=== PATIENT | female | born 1970 | race African-American/Black ===

== ENCOUNTER → 2018-04-13 15:53 | Outpatient (CLI) | payer OTHER, MEDICAID, SELFPAY ==
--- NOTE | 2018-04-13 15:57 | DI.RAD.S_ITS ---
PROCEDURE: XR KNEE LT 3V INDICATIONS: l knee pain TECHNIQUE: 3 views of the knee were acquired. COMPARISON: None. FINDINGS: Bones: No fractures or dislocations. No suspicious bony lesions. Soft tissues: No joint effusion. No suspicious soft tissue calcifications. IMPRESSION: Normal knee Dictated by: Eliel Briceño M.D. on 04/13/2018 at 16:24 Approved by: Eliel Briceño M.D. on 04/13/2018 at 16:25
== END ==
PROVIDERS: Family Provider Physician Assistant; PCP Physician Assistant; Visit Provider Physician Assistant
DX: M25.562 Pain in left knee (principal)
CPT/HCPCS: 73562

== ENCOUNTER 2018-06-23 13:36 | Inpatient (IN) | payer OTHER, MEDICAID, SELFPAY ==
[2018-06-23] VITALS (8 sets, daily range): BP systolic 110–172; BP diastolic 71–111; PULSE 17–96; RESP 12–28; TEMP 36.1–36.7; O2SAT 89–100; BMI 26.5
--- NOTE | 2018-06-23 13:51 | DI.RAD.S_ITS ---
PROCEDURE: XR CHEST 1V INDICATIONS: chest pain TECHNIQUE: One view of the chest was acquired. COMPARISON: None. FINDINGS: Surgical changes and devices: None. Lungs and pleura: No pleural effusions or pneumothorax. Patchy opacity noted in the left lung base compatible with atelectasis versus less likely early pneumonia. Mediastinum: Mediastinal contours appear normal. Heart size is normal. Bones and chest wall: No suspicious bony lesions. Overlying soft tissues appear unremarkable. IMPRESSION: Left basilar atelectasis versus less likely early pneumonia. Please correlate with clinical and laboratory data. Dictated by: Caterina Watson MD, PhD on 06/23/2018 at 13:21 Approved by: Caterina Watson MD, PhD on 06/23/2018 at 13:22
--- NOTE | 2018-06-23 13:51 | ED.CHESTPAIN ---
HPI - Chest Pain General Chief Complaint: Chest Pain Stated Complaint: CHEST Time Seen by Provider: 06/23/18 13:50 Source: patient Mode of arrival: ambulatory Limitations: no limitations History of Present Illness HPI narrative: The patient experienced a sudden onset of epigastric pain about 1 hr prior to arrival here. She has both right upper and lower central pain that is sharp and stabbing in nature. With this she denies nausea or vomiting. She has a history of PUD. She has had no diarrhea. Her bowel movements have not been regular. She denies fever or chills. 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 Related Data Home Medications Medication Instructions Recorded Confirmed multivitamin [Multiple Vitamins] 1 tab PO QDAY #0 02/02/18 06/23/18 Previous Rx's Medication Instructions Recorded omeprazole 40 mg PO QDAY #30 cap 02/02/18 duloxetine 20 mg capsule,delayed 20 mg PO BID #60 cap 04/26/18 release Allergies Allergy/AdvReac Type Severity Reaction Status Date / Time No Known Drug Allergies Allergy Verified 06/23/18 16:08 Review of Systems Review of Systems All systems reviewed & are unremarkable except as noted in HPI and below Constitutional Denies frequent falls Eyes Denies blurry vision and Denies eye discharge ENT Ears, Nose, Mouth, and Throat: Denies dizziness, Denies neck pain, Denies sinus pressure and Denies sore throat Cardiovascular Denies chest pain, Denies irregular heart rhythm, Denies lightheadedness, Denies palpitations, Denies dyspnea, Denies dyspnea on exertion and Denies orthopnea Respiratory Denies cough, Denies dyspnea, Denies dyspnea on exertion and Denies wheezing Gastrointestinal Gastrointestinal: Reports abdominal pain, Denies belching, Denies hematochezia, Reports change in bowel habits, Denies change in stool character, Reports constipation, Reports heartburn, Denies diarrhea and Denies nausea Genitourinary Reports other (No complaints.) Musculoskeletal Denies back pain, Denies neck pain and Denies numbness Integumentary/Breasts Denies pruritus, Denies erythema, Denies rash and Denies wounds Neurologic Denies behavioral changes, Denies confusion, Denies dizziness, Denies frequent falls and Denies numbness Psychiatric Denies behavioral changes and Denies confusion Endocrine Denies palpitations Allergic/Immunologic Denies wheezing PFSH Medical History Mixed anxiety depressive disorder (Chronic) Gastric ulcer with hemorrhage (Resolved) Hyperlipidemia (Chronic) Iron deficiency anemia (Suspected) Cobalamin deficiency (Resolved) Anxiety (Chronic Unknown) Depression (Chronic Unknown) GERD (gastroesophageal reflux disease) (Chronic Unknown) Hyperlipemia (Chronic Unknown) Hx of gastric ulcer (Resolved 2016) Surgical History History of (Acute) Family History Father No problems noted. Mother Cancer Social History Smoking Status: Never smoker Exam Initial Vital Signs Initial Vital Signs: Vital Signs Temperature 98.1 F 06/23/18 13:45 Pulse Rate 91 H 06/23/18 13:45 Respiratory Rate 28 H 06/23/18 13:45 Blood Pressure 133/84 H 06/23/18 13:45 Pulse Oximetry 100 06/23/18 13:45 Const General: cooperative, well developed and anxious Nutritional Appearance: well nourished Orientation: alert, awake, oriented x3 and not confused HENCA Head: normocephalic and atraumatic Mouth: oral mucosae normal and moist mucous membranes Throat: posterior oropharynx normal Eyes Conjunctivae: conjunctivae normal Sclera: sclerae normal Pupils: PERRL EOM: EOM intact bilaterally Neck Neck: full ROM and No lymphadenopathy Chest Chest: normal inspection of the chest Resp Effort & Inspection: normal respiratory effort, able to speak in complete sentences, no respiratory distress and no use of accessory muscles Auscultation: clear to auscultation bilaterally, no rales, no rhonchi and no wheezes Cardio Rate: regular rate Rhythm: regular rhythm Heart Sounds: no click, no gallops, no murmurs and no rubs Pulses: normal peripheral pulses GI Inspection: non-distended Palpation: no hepatosplenomegaly, No pulsatile mass and tender (Tender in the epigastric area, and also in the right lower mid abdomen. She has guarding with mild rebound in the right lower abdomen. ) Percussion: dullness to percussion Auscultation: abnormal bowel sounds (Diminished) Back/Spine/Pelvis Back: No CVA tenderness Skin General: no rashes or lesions noted, No jaundice and No petechiae Neuro General: alert, oriented x3 and no focal motor deficits Speech: speech normal Extrem General: full ROM, no clubbing, cyanosis or edema and no calf tenderness Psych Mood: anxious mood Course Orders Ordered: ED Orders 06/23/18 13:48 Complete Blood Count AUTO DIFF Stat Comprehensive Metabolic Panel Stat Lipase Stat Partial Thromboplastin Time Stat Prothrombin Time INR Stat Troponin & CK Cardiac Panel Stat 06/23/18 13:51 XR chest 1V Stat EKG-12 Lead Stat 06/23/18 13:59 CT abdomen pelvis w con Stat 06/23/18 16:30 XR chest 1V Stat Sodium Chloride (Normal Saline 0.9%) 1,000 mls @ 150 mls/hr IV CONT LYNDA Last Infusion: 06/23/18 16:15 Dose: 0 mls/hr Admin: 06/23/18 14:01 Dose: 150 mls/hr Lactated Ringer's (Lactated Ringers) 1,000 mls @ 125 mls/hr IV CONT LYNDA Discontinued Medications Hydromorphone HCl (Dilaudid) 1 mg IV NOW ONE Stop: 06/23/18 13:59 Last Admin: 06/23/18 14:01 Dose: 1 mg Hydromorphone HCl (Dilaudid) 1 mg IV NOW ONE Stop: 06/23/18 14:41 Last Admin: 06/23/18 14:42 Dose: 1 mg Hydromorphone HCl (Dilaudid) 1 mg IV NOW ONE Stop: 06/23/18 15:56 Last Admin: 06/23/18 16:15 Dose: 1 mg Sodium Chloride (Normal Saline 0.9%) 1,000 mls @ 150 mls/hr IV CONT LYNDA Pantoprazole Sodium (Protonix) 40 mg IV NOW ONE Stop: 06/23/18 13:59 Last Admin: 06/23/18 14:02 Dose: 40 mg Vital Signs - 8 hr 06/23/18 13:45 06/23/18 14:32 06/23/18 15:41 Temperature 98.1 F Pulse Rate 91 H 88 87 Respiratory Rate 28 H 24 12 Blood Pressure 133/84 H Blood Pressure [Right Arm] 136/75 H 110/71 Pulse Oximetry 100 100 94 06/23/18 16:13 Temperature Pulse Rate 96 H Respiratory Rate 25 H Blood Pressure Blood Pressure [Right Arm] 117/79 Pulse Oximetry 94 MDM - Chest Pain Lab Data Result diagrams: 06/23/18 13:48 06/23/18 13:48 Lab Results 06/23/18 06/23/18 06/23/18 Range/Units 13:48 13:48 13:48 WBC 7.0 (4.5-11.0) X10^3/uL RBC 4.80 (4.0-5.2) X10^6/uL Hgb 12.5 (12.0-16.0) g/dL Hct 39.1 (36-46) % MCV 81.5 (80-100) fL MCH 26.0 (26-34) PG MCHC 31.9 (30-36) % RDW 13.2 (11.6-14.8) % Plt Count 332 (150-400) X10^3/uL Neut % (Auto) 46.5 L (50-75) % Lymph % (Auto) 45.8 H (25-40) % [place] % (Auto) 5.4 (3-14) % Eos % (Auto) 1.1 L (2-4) % Baso % (Auto) 1.2 (0-2) % Neut # (Auto) 3300 (7243-8686) /uL PT 11.9 (10.1-12.7) SECONDS INR 1.1 (0.9-1.3) APTT 38 H (26.4-36.2) SECONDS Sodium 142 (137-145) mmol/L Potassium 4.1 (3.4-5.1) mmol/L Chloride 102 (98-107) mmol/L Carbon Dioxide 29 (22-32) mmol/L BUN 12 (7-17) mg/dL Creatinine 0.90 (0.52-1.04) mg/dL Estimated GFR > 60.0 (>60) mL/min BUN/Creatinine Ratio 13.3 (6-22) Glucose 106 H (70-100) mg/dL Calcium 9.5 (8.4-10.2) mg/dL Total Bilirubin 0.3 (0.2-1.3) mg/dL AST 27 (14-36) IU/L ALT 21 (9-52) IU/L Alkaline Phosphatase 89 (38-126) U/L Total Creatine Kinase 270 H (30-135) U/L CK-MB (CK-2) 1.53 (<2.37) ng/mL CK-MB (CK-2) Rel Index 0.6 L (1.5-5.0) % Troponin I < 0.012 (0.01-0.034) ng/mL Total Protein 8.1 (6.3-8.2) g/dL Albumin 4.7 (3.5-5.0) g/dL Globulin 3.4 (1.7-4.1) g/dL Albumin/Globulin Ratio 1.4 (1.0-2.8) Lipase 134 (23-300) U/L Imaging Data CT scan - abdomen: Radiologist's impression: 1. Abnormal small bowel distention, suspect for partial obstruction. 2. Status post hysterectomy. 3. Hypervascular focus in the right lobe of liver, probable hemangioma. Suggest nonemergent abdominal ultrasound for further evaluatio Chest x-ray: My impression: Radiologist's impression: Left basilar atelectasis versus less likely early pneumonia. ECG Data Attestation: I personally reviewed and interpreted this ECG as follows: (Normal sinus rhythm rate [address] T wave changes. No ectopy. No arrhythmia. Normal intervals. Normal axis.) [facility] Narrative Medical decision making narrative: The patient has required multiple doses of Dilaudid for pain control. She is NPO, IV fluids have been given. A small bowel obstruction has been confirmed by CT. An NG has been placed. Dr. Farris, surgery, has been consulted. The patient will be admitted. Discharge Plan Departure Patient Disposition: Admitted As Inpatient Clinical Impression: Small bowel obstruction Admit Date/Time: 06/23/18 16:35 Admit Provider: Rosalio Farris
[2018-06-23 13:59] LABS: Add Manual Diff / Slide Review NO; Basophils Percent Auto 1.2 % (0-2); Eosinophils Percent Auto 1.1 % (2-4); Hematocrit 39.1 % (36-46); Hemoglobin 12.5 g/dL (12.0-16.0); Lymphocytes Percent Auto 45.8 % (25-40); Mean Corpuscular HGB Conc 31.9 % (30-36); Mean Corpuscular Volume 81.5 fL (80-100); Monocytes Percent Auto 5.4 % (3-14); Neutrophils Absolute Auto 3300 /uL (3000-5900); Neutrophils Percent Auto 46.5 % (50-75); Platelet Count 332 X10^3/uL (150-400); Red Cell Distribution Width 13.2 % (11.6-14.8)
--- NOTE | 2018-06-23 13:59 | DI.CT.S_ITS ---
PROCEDURE: CT ABDOMEN PELVIS W CON INDICATIONS: Severe abdominl pain TECHNIQUE: After the administration of oral and intravenous contrast, 5 mm thick sections acquired from the diaphragms to the symphysis. 5 mm thick coronal and sagittal reformats were performed. For radiation dose reduction, the following was used: automated exposure control, adjustment of mA and/or kV according to patient size. COMPARISON: None. FINDINGS: Image quality: Excellent. ABDOMEN: Lung bases: Lung bases are clear. Heart size is normal. Solid organs: Liver is normal in size and enhancement. An intrahepatic hypervascular 1.5 cm lesion is present in the right lobe adjacent to the gallbladder fossa, probable flash filling of a cavernous hemangioma but indeterminate. Gallbladder appears normal. Biliary system is non-dilated. Pancreas enhances normally. Spleen is normal in size and enhancement. No adrenal nodules. Kidneys are normal in size and enhancement, without hydronephrosis. Peritoneum and bowel: Stomach is distended with large air/contrast fluid level. Colon loops are normal in caliber and wall thickness. Normal appendix. Small bowel loops show fluid filled distention and air-fluid levels, most marked in the pelvic area. No wall thickening or inflammatory fat stranding. There appears to be a transition zone in the right lower quadrant adjacent to the right common iliac artery. An no mass lesions or intussusception seen. No free fluid or air. Nodes and vessels: No retroperitoneal or mesenteric adenopathy. Aorta and inferior vena cava are normal in caliber. Miscellaneous: No ventral hernias. PELVIS: Genitourinary: Bladder wall thickness is normal. Uterus is surgically absent. Miscellaneous: No inguinal hernias or adenopathy. Bones: No suspicious bony lesions. No vertebral body compression fractures. IMPRESSION: 1. Abnormal small bowel distention, suspect for partial obstruction. 2. Status post hysterectomy. 3. Hypervascular focus in the right lobe of liver, probable hemangioma. Suggest nonemergent abdominal ultrasound for further evaluation. Dictated by: Eliel Briceño M.D. on 06/23/2018 at 15:34 Approved by: Eliel Briceño M.D. on 06/23/2018 at 15:47
[2018-06-23] MEDS: SODIUM CHLORIDE 0.9% 1,000 ML 150 ML IV (14:01)
[2018-06-23] MEDS: HYDROMORPHONE 1 MG INJ IV ×3 (14:01→16:15)
[2018-06-23 14:02] LABS: INR 1.1 (0.9-1.3); Prothrombin Time 11.9 SECONDS (10.1-12.7)
[2018-06-23] MEDS: PANTOPRAZOLE 40 MG VIAL IV (14:02)
[2018-06-23 14:05] LABS: PTT Partial Thromboplastin Tim 38 SECONDS (26.4-36.2)
[2018-06-23 14:07] LABS: Alanine Aminotransferase 21 IU/L (9-52); Albumin 4.7 g/dL (3.5-5.0); Albumin Globulin Ratio 1.4 (1.0-2.8); Alkaline Phosphatase 89 U/L (38-126); Aspartate Aminotransferase 27 IU/L (14-36); BUN Creatinine Ratio 13.3 (6-22); Bilirubin Total 0.3 mg/dL (0.2-1.3); Blood Urea Nitrogen 12 mg/dL (7-17); Calcium 9.5 mg/dL (8.4-10.2); Carbon Dioxide 29 mmol/L (22-32); Chloride 102 mmol/L (98-107); Creatine Kinase 270 U/L (30-135); Estimated Glomerular Filt Rate > 60.0 mL/min (>60); Globulin 3.4 g/dL (1.7-4.1); Glucose 106 mg/dL (70-100); HEMOLYSIS < 15 (0-50); Lipase 134 U/L (23-300); Potassium 4.1 mmol/L (3.4-5.1); Sodium 142 mmol/L (137-145); Total Protein 8.1 g/dL (6.3-8.2)
[2018-06-23 14:19] LABS: Troponin I < 0.012 ng/mL (0.01-0.034)
[2018-06-23 14:22] LABS: CKMB % Relative Index 0.6 % (1.5-5.0); Creatine Kinase MB 1.53 ng/mL (<2.37)
--- NOTE | 2018-06-23 16:30 | DI.RAD.S_ITS ---
PROCEDURE: XR CHEST 1V INDICATIONS: NG placement TECHNIQUE: One view of the chest was acquired. COMPARISON: [facility], CR, XR CHEST 1V, 06/23/2018, 14:04. FINDINGS: Surgical changes and devices: Esophagogastric side port is at the area above the EG junction and the esophagogastric tube tip is within the gastric cardia Lungs and pleura: No pleural effusions or pneumothorax. Lungs are clear considering reduced inspiration. Mediastinum: Mediastinal contours appear normal. Heart size is normal. Bones and chest wall: No suspicious bony lesions. Overlying soft tissues appear unremarkable. IMPRESSION: Esophagogastric tube side-port is just above the EG junction. Mildly reduced inspiratory volume. Dictated by: Ted Patel M.D. on 06/23/2018 at 16:45 Approved by: Ted Patel M.D. on 06/23/2018 at 16:46
--- NOTE | 2018-06-23 16:38 | PC.NURSE ---
post ng insertion
--- NOTE | 2018-06-23 18:24 | P.HP_ITS ---
History of Present Illness Date Patient Seen: 06/23/18 Time Patient Seen: 18:17 Chief complaint: CHEST PAIN Narrative: Patient is a very pleasant 47-year-old female originally from [place] who presents with 6 hr of severe upper abdominal pain sharp in nature with sudden onset while driving from [facility]. She has never had this type of pain before its associated with progressive nature to increased abdominal bloating and vomiting. Nothing seems to make it better and nothing seems to make it worse she reports she has had decreased urine output today and once the nasogastric tube was placed in the emergency room the pain seems to have improved along with some of the pain medications being given by IV. Patient has a history of a as well as a partial vaginal hysterectomy and a laparoscopic tubal ligation in the past. 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 Patient History Medical History Mixed anxiety depressive disorder (Chronic) Gastric ulcer with hemorrhage (Resolved) Hyperlipidemia (Chronic) Iron deficiency anemia (Suspected) Cobalamin deficiency (Resolved) Anxiety (Chronic Unknown) Depression (Chronic Unknown) GERD (gastroesophageal reflux disease) (Chronic Unknown) Hyperlipemia (Chronic Unknown) Hx of gastric ulcer (Resolved 2016) Surgical History History of (Acute) Family & Social History Family History: Reviewed 06/23/18 by Rosalio Farris MD Tobacco & Substance use: Smoking Status Never smoker alcohol intake frequency 0-2 drinks per day Substance Use Type does not use Meds Home Medications Medication Instructions Recorded Confirmed Type multivitamin [Multiple Vitamins] 1 tab PO QDAY #0 02/02/18 06/23/18 History omeprazole 40 mg PO QDAY #30 cap 02/02/18 06/23/18 Rx duloxetine 20 mg capsule,delayed 20 mg PO BID #60 cap 04/26/18 06/23/18 Rx release Allergies Allergy/AdvReac Type Severity Reaction Status Date / Time No Known Drug Allergies Allergy Verified 06/23/18 16:08 Review of Systems Review of Systems All systems reviewed & are unremarkable except as noted in HPI and below Exam Vital Signs (past 8 hours): - 06/23/18 13:45 06/23/18 14:32 06/23/18 15:41 Temperature 98.1 F Pulse Rate 91 H 88 87 Respiratory Rate 28 H 24 12 Blood Pressure 133/84 H Blood Pressure [Right Arm] 136/75 H 110/71 Pulse Oximetry 100 100 94 06/23/18 16:13 Temperature Pulse Rate 96 H Respiratory Rate 25 H Blood Pressure Blood Pressure [Right Arm] 117/79 Pulse Oximetry 94 Oxygen Delivery Method Room Air Narrative Exam Narrative: Patient is pleasant alert oriented x3 interactive speaking in full sentences seen with her son in at the bedside. HEENT: Anicteric sclera, no carotid bruits no cervical lymphadenopathy thyroid is nonpalpable. Chest is symmetric with multiple tattoos Respiratory: Clear to auscultation bilaterally no rhonchi or rales Cardio regular rate and rhythm without murmur click or or extra sounds. Abdomen: Pfannenstiel incision is along with infraumbilical laparoscopic trocar incision is noted and well healed without evidence of hernia. Abdomen is mildly tympanitic there is minimal pain with percussion or palpation. There are no peritoneal signs there is no overt wincing or or rebound guarding. Skin multiple tattoos no rashes Neuro moves all extremities alert and oriented x3 good judgment interactive pleasant Extremities warm well perfused no evidence of cyanosis clubbing or edema Psych no evidence of acute depression anxiety judgment seems normal. Objective Imaging CT scan - abdomen: My impression: Small bowel obstruction likely secondary to adhesions from prior surgery with inestinal loops to 4.5-5cm in pelvis. Stomach is distended and fluid-filled. Small liver lesion hyperattenutating c/w hemangioma. No free fluid or free air. No fat stranding. Radiologist's impression: [place] [address] CT Scan Report Patient: Kalie Shirley MR#: [id number] : 1970 Acct:[id number] Age/Sex: 47 / F Date of Service: 06/23/18 Loc: ED Procedure: CT abdomen pelvis w con Ordering Provider: Jay Corona M.D. PROCEDURE: CT ABDOMEN PELVIS W CON INDICATIONS: Severe abdominl pain TECHNIQUE: After the administration of oral and intravenous contrast, 5 mm thick sections acquired from the diaphragms to the symphysis. 5 mm thick coronal and sagittal reformats were performed. For radiation dose reduction, the following was used: automated exposure control, adjustment of mA and/or kV according to patient size. COMPARISON: None. FINDINGS: Image quality: Excellent. ABDOMEN: Lung bases: Lung bases are clear. Heart size is normal. Solid organs: Liver is normal in size and enhancement. An intrahepatic hypervascular 1.5 cm lesion is present in the right lobe adjacent to the gallbladder fossa, probable flash filling of a cavernous hemangioma but indeterminate. Gallbladder appears normal. Biliary system is non-dilated. Pancreas enhances normally. Spleen is normal in size and enhancement. No adrenal nodules. Kidneys are normal in size and enhancement, without hydronephrosis. Peritoneum and bowel: Stomach is distended with large air/contrast fluid level. Colon loops are normal in caliber and wall thickness. Normal appendix. Small bowel loops show fluid filled distention and air-fluid levels, most marked in the pelvic area. No wall thickening or inflammatory fat stranding. There appears to be a transition zone in the right lower quadrant adjacent to the right common iliac artery. An no mass lesions or intussusception seen. No free fluid or air. Nodes and vessels: No retroperitoneal or mesenteric adenopathy. Aorta and inferior vena cava are normal in caliber. Miscellaneous: No ventral hernias. PELVIS: Genitourinary: Bladder wall thickness is normal. Uterus is surgically absent. Miscellaneous: No inguinal hernias or adenopathy. Bones: No suspicious bony lesions. No vertebral body compression fractures. IMPRESSION: 1. Abnormal small bowel distention, suspect for partial obstruction. 2. Status post hysterectomy. 3. Hypervascular focus in the right lobe of liver, probable hemangioma. Suggest nonemergent abdominal ultrasound for further evaluation. Dictated by: Eliel Briceño M.D. on 06/23/2018 at 15:34 Approved by: Eliel Briceño M.D. on 06/23/2018 at 15:47 ECG: normal Labs Result Diagrams: 06/23/18 13:48 06/23/18 13:48 Labs: Laboratory Results - last 24 hr 06/23/18 06/23/18 06/23/18 13:48 13:48 13:48 WBC 7.0 RBC 4.80 Hgb 12.5 Hct 39.1 MCV 81.5 MCH 26.0 MCHC 31.9 RDW 13.2 Plt Count 332 Neut % (Auto) 46.5 L Lymph % (Auto) 45.8 H [place] % (Auto) 5.4 Eos % (Auto) 1.1 L Baso % (Auto) 1.2 Neut # (Auto) 3300 PT 11.9 INR 1.1 APTT 38 H Sodium 142 Potassium 4.1 Chloride 102 Carbon Dioxide 29 BUN 12 Creatinine 0.90 Estimated GFR > 60.0 BUN/Creatinine Ratio 13.3 Glucose 106 H Calcium 9.5 Total Bilirubin 0.3 AST 27 ALT 21 Alkaline Phosphatase 89 Total Creatine Kinase 270 H CK-MB (CK-2) 1.53 CK-MB (CK-2) Rel Index 0.6 L Troponin I < 0.012 Total Protein 8.1 Albumin 4.7 Globulin 3.4 Albumin/Globulin Ratio 1.4 Lipase 134 Assessment & Plan (1) Adhesion of intestine: Problem details: Small bowel obstruction likely secondary to Current visit: Yes Status: Acute Plan: Assessment/Plan Narrative: Small bowel obstruction likely secondary to the adhesions to the intestines in the pelvis for from her or hysterectomy or tubal ligation. The patient is relatively pain free at this time due to pain medication but also decompression of her stomach in addition has only had approximately 6 hr attempted NG tube decompression and bowel rest. The plans are to rehydrate her continue on her omeprazole or other proton pump inhibitor, continue NG tube decompression, heparin subcutaneously and if within 12-24 hours she has not resolved we may consider laparoscopic versus open lysis of adhesions. Repeat abdominal films will be performed in the morning to see if there has been any changes note in the diameter of the loops of bowel. Should she have increasing pain or change in her condition we will take her to the OR sooner.
[2018-06-23] MEDS: LACTATED RINGERS 1,000 ML 125 ML IV (18:29)
[2018-06-23] MEDS: HYDROMORPHONE 2 MG INJ 1 MG IV ×3 (18:29→23:50)
[2018-06-23] MEDS: LACTATED RINGERS 1,000 ML 1000 ML IV (18:45)
[2018-06-23] MEDS: KETOROLAC 15 MG/ML VIAL IV (20:07)
[2018-06-23] MEDS: diphenhydrAMINE 50 MG/ML VIAL 25 MG IV (20:10)
[2018-06-24] VITALS (18 sets, daily range): BP systolic 114–142; BP diastolic 50–89; PULSE 98–128; RESP 11–19; TEMP 36.2–36.9; O2SAT 89–98; BMI 26.5
--- NOTE | 2018-06-24 | PATH_ITS ---
[facility] Accession Number: [id number] . 01 Material submitted: . SEGMENT OF SMALL BOWEL . 02 Diagnosis: Segment of Small Bowel, Resection: Segment of small bowel with serosal adhesions. Negative for active inflammation, granulomata, dysplasia or malignancy. MRV/06/28/2018 . 02 Electronically signed: . Pravin Monge MD, PhD, Pathologist NPI- [id number] . 01 Gross description: . Received in formalin, labeled small bowel segment, is an unoriented segment of small bowel (length-0.9 cm, diameter-2.5 cm) with attached adipose tissue (up to 1.6 cm in depth). The resection margin is received stapled. The mucosa is pompa and unremarkable. The serosa is pompa smooth and shiny. No nodules, masses or lesions are identified. The resection margins are inked black. Section code: (A1-A2) small bowel segment, bisected and entirely submitted with one-half in each cassette; (A3) remaining adipose tissue. Specimen entirely submitted. Note: Upon bisecting the specimen, each half broke into two pieces. ([id number]) /[facility] . 02 Pathologist provided ICD-10: K56.50 . 02 CPT . 582432 Performed at: 01 [facility] [address], [place], [place] [id number] MD Cornelius Garcia MD Phone: [phone] Performed at: 02 [facility] [address] [place], [place] [id number] MD Sunil Bahena MD Phone: [phone]
[2018-06-24] MEDS: HYDROMORPHONE 2 MG INJ 1 MG IV ×3 (02:06→14:40)
[2018-06-24] MEDS: ONDANSETRON 4 MG/2 ML INJ IV (02:08)
[2018-06-24] MEDS: diphenhydrAMINE 50 MG/ML VIAL 25 MG IV ×2 (02:10→17:11)
[2018-06-24] MEDS: KETOROLAC 15 MG/ML VIAL IV ×3 (04:34→19:57)
--- NOTE | 2018-06-24 04:35 | PC.NURSE ---
Pt is a very sweet 47yr old female, has 10/10 abdominal pain, frequently stating she has severe stomach pain along with frequent nausea. Zofran, Toradol, and Dilaudid given as ordered. NGT to low intermittent suction with clear drainage, will measure total in AM. IVF running as ordered. NPO. Voiding in commode. Son at bedside.
[2018-06-24] MEDS: LACTATED RINGERS 1,000 ML 125 ML IV ×2 (06:37→21:59)
--- NOTE | 2018-06-24 07:00 | DI.RAD.S_ITS ---
PROCEDURE: XR ABDOMEN 1V INDICATIONS: follow up for small bowel ostruction TECHNIQUE: One view of the abdomen acquired. COMPARISON: None. FINDINGS: Surgical changes and devices: None. Bowel: Bowel gas pattern is normal. Contrast has extended into the colon. No small bowel dilatation. Soft tissues: No suspicious abdominal calcifications. Visualized solid organ contours appear normal in size. Contrast within the urinary bladder is present. Bones: No suspicious bony lesions. IMPRESSION: Resolving small bowel obstruction. Dictated by: Ross Honeycutt M.D. on 06/24/2018 at 9:37 Approved by: Ross Honeycutt M.D. on 06/24/2018 at 9:38
--- NOTE | 2018-06-24 08:00 | P.PN_ITS ---
Subjective Date Patient Seen: 06/24/18 Time Patient Seen: 07:45 Interval history: Patient admitted overnight with small bowel obstruction with CT scan showing small bowel loops in the pelvis to 4 half to 5 cm diameter. She reports itching and pain in her epigastrium as well as in the pelvis no real resolution of pain. No vomiting with NG tube over NG tube needs to be advanced based on x-rays. Repeat abdominal film today shows colon with contrast however no evidence of resolution of bowel obstruction no progression of bowel obstruction but based on CT scan there does appear to be a dense adhesion in the pelvis. Exam Vital Signs (past 8 hours): - 06/24/18 04:30 Temperature 98.0 F Pulse Rate 99 H Respiratory Rate 18 Blood Pressure 126/85 H Pulse Oximetry 91 Oxygen Delivery Method Room Air Narrative Exam Narrative: Very pleasant female no acute distress with NG tube reports abdominal pain. Lungs are clear to auscultation bilaterally Heart regular rate and rhythm Abdomen is tender in the pelvis and epigastrium there is no rebound tenderness there is tympany to percussion Extremities warm well perfused with SCDs functioning. Psych alert and oriented x3 interactive and pleasant. Objective Imaging Abdominal x-ray: My impression: Colon is outlined with contrast there appears to be for slow progression of the contrast there are some loops of bowel that are dilated no obvious air-fluid level present. Bowel loop with air filled in pelvis. Labs Result Diagrams: 06/23/18 13:48 06/23/18 13:48 Labs: Laboratory Results - last 24 hr 06/23/18 06/23/18 06/23/18 13:48 13:48 13:48 WBC 7.0 RBC 4.80 Hgb 12.5 Hct 39.1 MCV 81.5 MCH 26.0 MCHC 31.9 RDW 13.2 Plt Count 332 Neut % (Auto) 46.5 L Lymph % (Auto) 45.8 H [place] % (Auto) 5.4 Eos % (Auto) 1.1 L Baso % (Auto) 1.2 Neut # (Auto) 3300 PT 11.9 INR 1.1 APTT 38 H Sodium 142 Potassium 4.1 Chloride 102 Carbon Dioxide 29 BUN 12 Creatinine 0.90 Estimated GFR > 60.0 BUN/Creatinine Ratio 13.3 Glucose 106 H Calcium 9.5 Total Bilirubin 0.3 AST 27 ALT 21 Alkaline Phosphatase 89 Total Creatine Kinase 270 H CK-MB (CK-2) 1.53 CK-MB (CK-2) Rel Index 0.6 L Troponin I < 0.012 Total Protein 8.1 Albumin 4.7 Globulin 3.4 Albumin/Globulin Ratio 1.4 Lipase 134 Assessment & Plan (1) Adhesion of intestine: Problem details: Small bowel obstruction likely secondary to Current visit: Yes Status: Acute Plan: Assessment/Plan Narrative: She has not really progressed and with her pain and large dilation of small intestine in pelvis laparoscopic lysis of adhesions is indicated. I am concerned she will progress to perforation if allowed to delay longer as the small intestinal dilation is very distal in the jejunum. 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 Patient is offered non operative management and understands that operative management is not the only choice and wishes to proceed today. She tells me she would like to just get this over with. I assured her that waiting another 12-24 hours is unlikely to be dangerous but she would like to proceed today.
[2018-06-24] MEDS: LACTATED RINGERS 1,000 ML 42 ML IV ×2 (09:00→11:15)
[2018-06-24] MEDS: HEPARIN 5,000 UNIT/ML VIAL 5000 UNIT SUBCUT (09:12)
[2018-06-24] MEDS: CEFAZOLIN 2 GM/100 ML FROZ.PIGGY IV (09:17)
--- NOTE | 2018-06-24 09:24 | P.OP_ITS ---
Operative Date/Time/Diagnoses Date of procedure: 06/24/18 Pre-op diagnosis: SBO due to adhesions Post-op diagnosis: same Procedure & Clinicians Procedure: Laparoscopic resection of small intestine single anastomsis 84498 Laparoscopic lysis of adhesions requiring the majority of the operative time-> 60 minutes [id number]- Must be billed as separate procedure. Same procedure as scheduled: Yes Indications: 34 yo female with approximately 24 hours of abdominal pain, n/v relieved only by NGT placement. She has not had resolution of pain or passage of flatus. Her pain has worsened somewhat and although she is rehydrated, her abdominal films this morning were not conclusive. Clinically she is not improved and CT showed very dilated loops of small intestine in pelvis near prior surgical site concerning for dense adhesive disease. Surgeon: Rosalio Farris Click Yes if Unassisted: Yes Anesthesia Type: General Operative Notes Findings: Dense adhesions from the small intestine to the colon, abdominal wall , other loops of small intestine and into the pelvic retroperitoneum were found with 2 loops of small bowel attached to causing a closed loop obstruction which were clearly the problem. The loop of bowel that was adhesed to the anterior abdominal wall was so densely adhesed that was adhered to the muscle at prior incision site and this was the site where small bowel resection was performed with a single anastomosis stapled 60 mm size. Anterior airway- Glidescope was used. Specimen(s): other (Small bowel wall for gross only) Implants & Drains: none Applied: catheter (Perez was placed and removed in OR. 600cc UO) Estimated Blood Loss (mL): 40 Blood products transfused: none Procedure in detail: After informed consent was obtained patient was taken to the operating room she received 2 g of cefazolin by IV 5000 units of heparin subcutaneously general anesthesia was performed using the glide scope due to anterior airway. Both arms were tucked and padded with gel pads Perez catheter was placed due to pelvic small intestinal adhesions suspected by CT scan and Perez was removed at the end of the case. She was taped and secured to the bed with wide padded straps. Safety time-out was completed. Began on the left upper quadrant at the costal margin with a 5 mm incision it with local anesthetic a total of 30 cc 0.25% epinephrine Marcaine was utilized at all trocar sites I was I entered the peritoneum with a visualizing 5 mm trocar insufflation 4 quadrant laparoscopy showed no evidence of bleeding or injury to the intra-abdominal contents. There is obvious small intestinal adhesions to the anterior abdominal wall in the midline at likely her laparoscopic umbilical incision. 5 mm trocar was placed in the left mid abdomen and a 5 mm trocar was placed in the left lower quadrant. Adhesiolysis was begun in the mid abdomen and we encountered dense adhesions to the posterior rectus sheath. Small intestinal wall was so adherent that with sharp dissection only a still into the intestinal wall and this was immediately noted. Full light lysis of adhesions of this loop of bowel was performed and an echelon 60 mm stapler was now brought on the field and a white load was used both limbs of the enterotomy were entered and a 60 mm stapled anastomosis was created avoiding all the mesentery there was no bleeding seen another load was utilized to close our defect because there was no length of her section there was no mesenteric defect to close. The small piece of small bowel wall was passed off as specimen. The patient was now placed in slight [id number] with Trendelenburg and adhesiolysis was begun from the loop to loop small intestine from intestine and colon eventually following the intestine all the way into the pelvis and lysing 2 loops of small bowel that were densely adherent into the pelvis with a knuckle of small bowel that was clearly causing the obstruction I was able to trace the small intestine all the way to the terminal ileum identify normal appendix. There was no significant bleeding irrigation and suction was utilized to ensure no bleeding was occurring. I then ran the small bowel back from the terminal ileum all the way up to the ligament of Treitz there was no evidence of injury to the small intestinal wall no evidence of colonic injury there is no continued bleeding there is no mesenteric defect to close and there was no evidence of further adhesiolysis that would allow for better passage of intestinal contents. The anastomosis was investigated and tested for secure the TN leak there was none found and there was no bleeding seen at the anastomotic staple line small amount of cautery had been used at the staple line to control a little bit of bleeding. None remained. I then pulled the colon over the small intestine in normal and anatomic fashion there is very minimal omentum. 0 Vicryl was now used x2 to close the 12 mm trocar site which had been upsized in the mid abdominal trocar to allow our echelon stapler to be passed the 5 mm trocar site was also closed which was low on the abdominal wall to help prevent hernia. Desufflation was performed through the upper abdominal trocar there is no bleeding seen all skin was now closed with 4 0 interrupted Monocryl filament suture and skin glue. Perez catheter was now removed the patient tolerated the procedure very well was transferred to the PACU with anesthesia and surgery liaison. I was presents present for the entire procedure. Complications: none Condition: stable Disposition: PACU Plan for aftercare: Admitted to the surgical floor rehydration and slow advancement of diet.
--- NOTE | 2018-06-24 09:55 | SUR.OPER ---
Supine on padded OR bed, head on pillow, arm padded and tucked at side, legs uncrossed, safety belt at thigh, tape over blanket over lower legs .
--- NOTE | 2018-06-24 10:02 | PC.NURSE ---
Kalie was taken to OR at 0845 in stable condition with pre-op checklist complete, signed and witnessed consent, and nurse report given to TEVIN Jacob. Kalie's son Jose at bedside.
[2018-06-24] MEDS: BUPIVACAINE 0.25% W/ EPI VIAL 50 ML INJ (10:04)
--- NOTE | 2018-06-24 11:05 | CM.DANOTE ---
Discharge Planning/Care Management DCP: assessment: case received, EMR reviewed and discussed case in [facility] team meetin. TEVIN Currie reports pt is currently in surgery for SBO/LEO. Pt is a 42 year old female who admitted yesterday afternoon to the care of [facility]: Dr. Shahrzad Farris. PCP: Monica Simons. Checked in now with TEVIN Astudillo who reports pt's adult son, sleeping on window seat in pt's room, has been updated and the surgery is expected to go on for a couple more hours. Per Wilda, son does carry a dx of autism. Went to room, noted son who does not rouse from sleep. Pt's brother Yohan has his cell listed on room WB. 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 Payer: [employer] /Medicaid P: see pt tomorrow after full post surgical plan is known and follow for d/c issues and options. CM Discharge Assessment Start: 06/24/18 10:59 Freq: Status: Active Protocol: Document 06/24/18 10:59 ITV (Rec: 06/24/18 11:04 [email or web address] [id number]) Discharge Planning Assessment History Provided By Medical Record Has Patient been admitted in last 30 No days? Prior Living Arrangements House Independent with ADL's Yes Is patient alert and oriented? 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 She states in Nursing Admission Assessment that her care needs can be discussed with anyone from that facility. Whiteboard Updated in Patient Room with Yes name and ext. 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 No History Provided By Medical Record Has Patient been admitted in last 30 No days? Prior Living Arrangements House Household Members family Independent with ADL's Yes Is patient alert and oriented? 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 She states in Nursing Admission Assessment that her care needs can be discussed with anyone from that facility. Whiteboard Updated in Patient Room with Yes name and ext. # of Aircraft Lay Out Worker Next Review Date 06/25/18 Next Review Type Continued Stay Review
--- NOTE | 2018-06-24 11:52 | SUR.PHASEI ---
SECOND IV SITE INSERTED IN OR BY ANESTHESIA IN RIGHT HAND. IV SITE CLEAR AND INFUSING WITHOUT DIFFICULTLY.
--- NOTE | 2018-06-24 12:45 | SUR.PHASEI ---
REPORT CALLED TO TEVIN RICKS ON ACUTE CARE FLOOR AT 1212. PT IN STABLE CONDITION, VSS. IV SITE CLEAR AND INFUSING WITHOUT DIFFICULTLY. SURGICAL INCISION SITES OBSERVED TO BE C/D/I. NG TUBE IN PLACE AND CLAMPED FOR TRANSPORT TO ACUTE CARE FLOOR. PT DENIES ANY NAUSEA OR PAIN DISCOMFORT. PT TRANSFERED TO ACUTE CARE FLOOR AND TALKING TO RN DURING TRANSPORT. BEDSIDE REPORT GIVEN TO TEVIN EVANS ON ACUTE CARE FLOOR. PT SON AT BEDSIDE UPON ARRIVAL TO ROOM. TRANSFERED CARE OF PT TO TEVIN EVANS IN STABLE CONDITION.
--- NOTE | 2018-06-24 14:03 | PC.NURSE ---
Kalie returned from OR at 1225. Post-op lap. lysis of SB adhesions. VSS. NG to LIS with very scant watery output. Abd. quiet. Three scope site clean/dry/intact with dermabond. IV infusing. NPO status reinforced and oral care given as Kalie keeps asking for ice chips.
--- NOTE | 2018-06-24 16:34 | PC.NURSE ---
Addendum entered by Flora Jain R.N. 06/24/18 23:00: Relatively uneventful evening. NG patent. Med at 2130 w/diliaudid. Keod dsg CDI. Call light w/in reach. Continue w/plan of care. Original Note: Pt watching TX w/son, Denies discomfort at this time. SpO2 96% RA. NG to LIS No drainage noted at this time. IV LR infusing into the right hand @ 125cc/hr via pump w/o incidence. Call light w/in reach. Son in room.
[2018-06-24] MEDS: HYDROMORPHONE 0.5 MG INJ 1 MG IV ×2 (17:12→21:33)
[2018-06-25] VITALS (7 sets, daily range): BP systolic 104–137; BP diastolic 58–97; PULSE 103–115; RESP 15–18; TEMP 36.3–37.3; O2SAT 86–100
[2018-06-25] MEDS: HYDROMORPHONE 0.5 MG INJ 1 MG IV ×6 (02:42→11:42)
[2018-06-25] MEDS: KETOROLAC 15 MG/ML VIAL IV (02:43)
[2018-06-25] MEDS: LACTATED RINGERS 1,000 ML 125 ML IV ×3 (04:26→20:58)
--- NOTE | 2018-06-25 05:42 | PM.PN.1 ---
Subjective Date Patient Seen: 06/25/18 Time Patient Seen: 05:42 Interval history: 47-year-old female postoperative day 1 from laparoscopic lysis of dense adhesions in the pelvis and small bowel resection. Overall she is doing well she is afebrile vital signs are stable she is making urine output at a reasonable level her NG tube is still putting out approximately 300 per shift. Her her main complaint is itching secondary to narcotics and abdominal soreness as expected. Exam Vital Signs (past 8 hours): - 06/24/18 23:40 Temperature 98.3 F Pulse Rate 98 H Respiratory Rate 16 Blood Pressure 130/85 H Pulse Oximetry 98 Oxygen Delivery Method Nasal Cannula Oxygen Flow Rate 2 Narrative Exam Narrative: Pleasant 47-year-old female resting comfortably in bed speaking in full sentences no acute distress. Lungs are clear to auscultation CV regular Abdomen is soft nondistended appropriately tender postoperatively there is an ice pack on it for comfort incisions are clean dry and intact there is no evidence of erythema hematoma or infection. Bilateral extremities show no evidence of cyanosis clubbing or edema there is no calf pain on either calf. Objective Labs Result Diagrams: 06/23/18 13:48 06/23/18 13:48 Assessment & Plan Plan: Assessment/Plan Narrative: Overall she is doing as expected hopefully will progress to NG tube removal in the next few days and advancement of diet. CMP will be checked for electrolyte replacement with her NG tube output I expect her potassium may be low and could contribute to delay in return of bowel function. Once her NG tube has been for another 6-12 hours weakened placed to gravity and see if residuals are low to remove it. Will proceed with that later today once she is up and and about. CBC will be checked for 1-2 days. Heparin subcu for DVT prophylaxis t.i.d.. Incentive spirometry was encouraged. Ambulate t.i.d. minimum Patient is made aware that Dr. Chen will be taking over for me tomorrow she is comfortable with this approach and she will follow up with me postoperatively in clinic once she is discharged.
[2018-06-25 06:41] LABS: Hematocrit 32.1 % (36-46); Hemoglobin 10.2 g/dL (12.0-16.0); Mean Corpuscular HGB Conc 31.9 % (30-36); Mean Corpuscular Volume 81.6 fL (80-100); Platelet Count 248 X10^3/uL (150-400); Red Blood Cell Count 3.93 X10^6/uL (4.0-5.2); Red Cell Distribution Width 13.4 % (11.6-14.8); White Blood Cell Count 11.2 X10^3/uL (4.5-11.0)
[2018-06-25 06:47] LABS: Alanine Aminotransferase 21 IU/L (9-52); Albumin 2.9 g/dL (3.5-5.0); Albumin Globulin Ratio 1.1 (1.0-2.8); Alkaline Phosphatase 68 U/L (38-126); Aspartate Aminotransferase 27 IU/L (14-36); Bilirubin Total 0.7 mg/dL (0.2-1.3); Blood Urea Nitrogen 8 mg/dL (7-17); Calcium 8.2 mg/dL (8.4-10.2); Carbon Dioxide 35 mmol/L (22-32); Chloride 99 mmol/L (98-107); Estimated Glomerular Filt Rate > 60.0 mL/min (>60); Globulin 2.7 g/dL (1.7-4.1); Glucose 87 mg/dL (70-100); HEMOLYSIS < 15 (0-50); Potassium 3.7 mmol/L (3.4-5.1); Sodium 139 mmol/L (137-145); Total Protein 5.6 g/dL (6.3-8.2)
--- NOTE | 2018-06-25 06:57 | PC.NURSE ---
pt has not urinated this shift, states has no sensation of needing to void. bladder scan = [id number], pt assist up to bsc to attempt void. was able to void 425ml.
[2018-06-25] MEDS: KETOROLAC 30 MG/ML VIAL IV ×3 (08:04→20:21)
[2018-06-25] MEDS: diphenhydrAMINE 50 MG/ML VIAL 25 MG IV ×3 (08:07→20:20)
[2018-06-25] MEDS: HEPARIN 5,000 UNIT/ML VIAL 5000 UNIT SUBCUT ×2 (08:08→15:30)
[2018-06-25] MEDS: CALCIUM GLUCONATE 4.65 MEQ in SODIUM CHLORIDE 0.9% 50 ML 120 ML IV (08:10)
[2018-06-25] MEDS: PANTOPRAZOLE 40 MG VIAL 20 MG IV (11:41)
[2018-06-25] MEDS: HYDROMORPHONE PCA 6 MG/30 ML PCA.VIAL IV (15:43)
--- NOTE | 2018-06-25 15:45 | PC.NURSE ---
Am Shift, Pt has had trouble with pain control, affecting mobility for Pt. Reluctant to get OOB. Hypoactive BT's itching reported, Benedryl given. Torodol and Dil TRANSPORTATION AID started this afternoon. Adult son in room, Pt continues NPO status with NG to LIS. IVF infusing. Using call light for needs.
[2018-06-25] MEDS: BENZOCAINE/MENTHOL 1 LOZ PKT 1 EACH PO ×2 (18:05→21:07)
[2018-06-26] VITALS (9 sets, daily range): BP systolic 123–139; BP diastolic 72–94; PULSE 93–102; RESP 16–18; TEMP 35.9–37.1; O2SAT 90–97
[2018-06-26] MEDS: BENZOCAINE/MENTHOL 1 LOZ PKT 1 EACH PO (02:09)
[2018-06-26] MEDS: diphenhydrAMINE 50 MG/ML VIAL 25 MG IV ×2 (02:11→08:59)
[2018-06-26] MEDS: KETOROLAC 30 MG/ML VIAL IV ×3 (02:11→19:57)
[2018-06-26] MEDS: HYDROMORPHONE PCA 6 MG/30 ML PCA.VIAL IV ×3 (02:32→15:40)
[2018-06-26] MEDS: HEPARIN 5,000 UNIT/ML VIAL 5000 UNIT SUBCUT ×3 (04:09→22:44)
[2018-06-26] MEDS: LACTATED RINGERS 1,000 ML 125 ML IV (05:28)
[2018-06-26 05:32] LABS: Hematocrit 32.7 % (36-46); Hemoglobin 10.4 g/dL (12.0-16.0); Mean Corpuscular HGB Conc 31.9 % (30-36); Mean Corpuscular Hemoglobin 26.3 PG (26-34); Mean Corpuscular Volume 82.4 fL (80-100); Platelet Count 246 X10^3/uL (150-400); Red Blood Cell Count 3.97 X10^6/uL (4.0-5.2); White Blood Cell Count 9.2 X10^3/uL (4.5-11.0)
[2018-06-26 05:40] LABS: Alanine Aminotransferase 22 IU/L (9-52); Albumin Globulin Ratio 1.1 (1.0-2.8); Alkaline Phosphatase 69 U/L (38-126); Aspartate Aminotransferase 27 IU/L (14-36); BUN Creatinine Ratio 8.6 (6-22); Bilirubin Total 0.5 mg/dL (0.2-1.3); Blood Urea Nitrogen 6 mg/dL (7-17); Calcium 8.1 mg/dL (8.4-10.2); Carbon Dioxide 37 mmol/L (22-32); Chloride 98 mmol/L (98-107); Estimated Glomerular Filt Rate > 60.0 mL/min (>60); Globulin 2.7 g/dL (1.7-4.1); Glucose 81 mg/dL (70-100); HEMOLYSIS < 15 (0-50); Potassium 3.3 mmol/L (3.4-5.1); Sodium 139 mmol/L (137-145); Total Protein 5.7 g/dL (6.3-8.2)
--- NOTE | 2018-06-26 06:32 | PM.PN.1 ---
Subjective Date Patient Seen: 06/26/18 Time Patient Seen: 06:32 Interval history: Very pleasant 47-year-old female POD#2 from laparoscopic small bowel resection and lysis of adhesions for adhesive small bowel obstruction. She is doing very well has passed flatus NG tube has put out 1150cc but has decreased over the past shift and she is feeling well. She reports abdominal soreness on the left side only and is otherwise improving. Exam Vital Signs (past 8 hours): - 06/26/18 00:25 06/26/18 06:13 Temperature 97.5 F L 97.6 F Pulse Rate 94 H 94 H Respiratory Rate 16 17 Blood Pressure 123/72 H 138/88 H Pulse Oximetry 94 97 Fraction of Inspired Oxygen 21 Oxygen Delivery Method Nasal Cannula Oxygen Flow Rate 0 Narrative Exam Narrative: Sleeping comfortably no acute distress answering questions in full sentences. Lungs are clear to auscultation Abdomen is soft mildly tender only to the left side appropriately with incisions Incisions are clean dry and intact with skin glue Extremities are warm well perfused no calf tenderness Objective Labs Result Diagrams: 06/26/18 05:04 06/26/18 05:04 Labs: Laboratory Results - last 24 hr 06/25/18 06/25/18 06/26/18 06:25 06:25 05:04 WBC 11.2 H D 9.2 RBC 3.93 L 3.97 L Hgb 10.2 L 10.4 L Hct 32.1 L 32.7 L MCV 81.6 82.4 MCH 26.0 26.3 MCHC 31.9 31.9 RDW 13.4 13.0 Plt Count 248 246 Sodium 139 Potassium 3.7 Chloride 99 Carbon Dioxide 35 H BUN 8 Creatinine 0.80 Estimated GFR > 60.0 BUN/Creatinine Ratio 10.0 Glucose 87 Calcium 8.2 L Total Bilirubin 0.7 AST 27 ALT 21 Alkaline Phosphatase 68 Total Protein 5.6 L Albumin 2.9 L Globulin 2.7 Albumin/Globulin Ratio 1.1 06/26/18 05:04 WBC RBC Hgb Hct MCV MCH MCHC RDW Plt Count Sodium 139 Potassium 3.3 L Chloride 98 Carbon Dioxide 37 H BUN 6 L Creatinine 0.70 Estimated GFR > 60.0 BUN/Creatinine Ratio 8.6 Glucose 81 Calcium 8.1 L Total Bilirubin 0.5 AST 27 ALT 22 Alkaline Phosphatase 69 Total Protein 5.7 L Albumin 3.0 L Globulin 2.7 Albumin/Globulin Ratio 1.1 Assessment & Plan Plan: Assessment/Plan Narrative: Overall she is doing as expected hopefully will progress to NG tube removal in the next few days and advancement of diet. CMP: Replace potassium today with a potassium as expected is has dropped with NG tube output over a L. I will give her 40 mg IV and 40 mg orally. CBC: White blood cell count is down to 9.2k DC all CBC. Heparin subcu for DVT prophylaxis t.i.d.. Incentive spirometry was encouraged. Ambulate t.i.d. minimum Patient is made aware that Dr. Chen will be taking over for me today she is comfortable with this approach and she will follow up with me postoperatively in clinic once she is discharged. She does not have family in the area and is the primary provider for her autistic son who is here with her in the hospital. She understands driving with narcotics in her system is not recommended. I instructed her to avoid constipation and to take stool softeners when taking narcotic pain meds to avoid constipation but to expect some changes in her bowel habits that might very from constipation to diarrhea after a bowel obstruction. Time Spent With Patient Time with patient: 25 - 35 minutes
--- NOTE | 2018-06-26 07:58 | PC.NURSE ---
Am shift Pt A/o x3, reports pain control improved with METER READING CLERK use. Education provided on need to ambulate at minimum TID. Pt frustrated by all the pressure on me to move reassured, discussed limiting post op complications with ambulation. Pt agreeable to short walk after residual check on NG. SCDs refused. Adult son in room, Pt continues NPO status, updated on POC. Flatus + no nausea at present.
[2018-06-26] MEDS: KCL 40 MEQ IN NS 1,000 ML 125 MEQ IV (08:52)
[2018-06-26] MEDS: PANTOPRAZOLE 40 MG VIAL 20 MG IV (08:52)
--- NOTE | 2018-06-26 09:30 | PM.PNPO.1 ---
Subjective Date Patient Seen: 06/26/18 Time Patient Seen: 09:30 Interval history: Patient post repair of a enterotomy and adhesiolysis for a closed loop small-bowel obstruction. She is feeling okay. She would like to have her tube out of her nose. She is passing a small amount of flatus. She says however that her abdomen is normally flat. No bowel movements. Exam Vital Signs (past 8 hours): - 06/26/18 06:13 06/26/18 08:43 Temperature 97.6 F 97.8 F Pulse Rate 94 H 97 H Respiratory Rate 17 16 Blood Pressure 138/88 H 135/84 H Pulse Oximetry 97 97 Fraction of Inspired Oxygen 21 Oxygen Delivery Method Nasal Cannula Oxygen Flow Rate 2 Narrative Exam Narrative: Operative no apparent distress. Respiratory effort could be better. Clear anteriorly. Heart regular rate and rhythm without murmur gallop. Her abdomen is protuberant/distended and soft. She has localized tenderness around the incision sites. No cellulitis. Objective Labs Result Diagrams: 06/26/18 05:04 06/26/18 05:04 Labs: Laboratory Results - last 24 hr 06/26/18 06/26/18 05:04 05:04 WBC 9.2 RBC 3.97 L Hgb 10.4 L Hct 32.7 L MCV 82.4 MCH 26.3 MCHC 31.9 RDW 13.0 Plt Count 246 Sodium 139 Potassium 3.3 L Chloride 98 Carbon Dioxide 37 H BUN 6 L Creatinine 0.70 Estimated GFR > 60.0 BUN/Creatinine Ratio 8.6 Glucose 81 Calcium 8.1 L Total Bilirubin 0.5 AST 27 ALT 22 Alkaline Phosphatase 69 Total Protein 5.7 L Albumin 3.0 L Globulin 2.7 Albumin/Globulin Ratio 1.1 Assessment & Plan Post-op Postoperative Procedures Operation Date: 06/24/18 09:00 Actual Procedures Side Surgeon p Laparoscopic Small Bowel Resection Not Applicable Rosalio Farris MD s Laparoscopic Lysis of Adhesions Rosalio Farris MD Postoperative status: post-op ileus (Not unusual) Postoperative plan: ambulate and other (Change IV fluids. Replace potassium.) Time Spent With Patient less than 15 minutes
--- NOTE | 2018-06-26 10:30 | CM.DPC ---
DCP: EMR reviewed, case discussed in [facility] team rounds and met with pt and her son, Jose (at bedside). Pt is s/p surgery and now with post op ileus. Pt is found lying in bed, o2 on and NG to suction draining dark material, cannister on wall about half full. Pt has been encouraged to mobilize but acknowledges it is difficult to do with all this going on. Says she tries to move her legs in bed, is getting up to BSC. Dr. Chen is encouraging pt to move more. After discussion with pt have obtained a PT order to help pt move about in ways that may make her more comfortable and with appropriate management of tubing. 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 She plans home when stable for same with her son's prn support. Pt expressed thankfulness for the visit.
[2018-06-26] MEDS: POTASSIUM CHLORIDE 40 MEQ in SODIUM CHLORIDE 0.9% 500 ML 130 ML IV (11:07)
[2018-06-26] MEDS: DEXTROSE 5%-0.45% NS 1,000 ML 100 ML IV (11:08)
[2018-06-26] MEDS: HYDROMORPHONE PCA 6 MG/30 ML PCA.VIAL 3.4 MG IV (23:46)
[2018-06-27] VITALS (8 sets, daily range): BP systolic 111–142; BP diastolic 70–96; PULSE 96–117; RESP 14–20; TEMP 36.6–37.8; O2SAT 90–99
[2018-06-27] MEDS: KETOROLAC 30 MG/ML VIAL IV (04:06)
[2018-06-27] MEDS: DEXTROSE 5%-0.45% NS 1,000 ML 100 ML IV (04:06)
[2018-06-27] MEDS: BENZOCAINE/MENTHOL 1 LOZ PKT 1 EACH PO ×2 (04:06→10:07)
[2018-06-27] MEDS: diphenhydrAMINE 50 MG/ML VIAL 25 MG IV ×3 (06:04→18:58)
[2018-06-27] MEDS: HEPARIN 5,000 UNIT/ML VIAL 5000 UNIT SUBCUT ×3 (06:06→20:47)
[2018-06-27 06:10] LABS: Alanine Aminotransferase 20 IU/L (9-52); Albumin 3.4 g/dL (3.5-5.0); Albumin Globulin Ratio 1.2 (1.0-2.8); Alkaline Phosphatase 75 U/L (38-126); Aspartate Aminotransferase 25 IU/L (14-36); BUN Creatinine Ratio 5.7 (6-22); Bilirubin Total 0.5 mg/dL (0.2-1.3); Blood Urea Nitrogen 4 mg/dL (7-17); Calcium 8.5 mg/dL (8.4-10.2); Carbon Dioxide 34 mmol/L (22-32); Chloride 100 mmol/L (98-107); Estimated Glomerular Filt Rate > 60.0 mL/min (>60); Globulin 2.9 g/dL (1.7-4.1); Glucose 107 mg/dL (70-100); HEMOLYSIS < 15 (0-50); Magnesium 1.6 mg/dL (1.6-2.3); Potassium 3.4 mmol/L (3.4-5.1); Sodium 139 mmol/L (137-145); Total Protein 6.3 g/dL (6.3-8.2)
[2018-06-27] MEDS: HYDROMORPHONE PCA 6 MG/30 ML PCA.VIAL IV ×2 (06:12→13:59)
--- NOTE | 2018-06-27 07:00 | DI.RAD.S_ITS ---
PROCEDURE: XR ACUTE ABDOMEN SERIES INDICATIONS: follow up, small bowel obstruction post laparoscopy TECHNIQUE: One view chest and two views of the abdomen were acquired. COMPARISON: [facility], CR, XR ABDOMEN 1V, 06/24/2018, 5:49. [facility], CR, XR CHEST 1V, 06/23/2018, 16:35. FINDINGS: Surgical changes and devices: Nasogastric tube is present with tip in the stomach.. Chest: Mild bibasilar atelectasis/infiltrate is slightly increased, small right pleural effusion now present. Heart size is normal. No pleural effusions. No pneumoperitoneum. Abdomen: Bowel gas pattern is normal. Stool is present throughout the colon. No residual small bowel distention. No suspicious calcifications. Visualized solid organ contours appear normal. Bones: No suspicious bony lesions. IMPRESSION: 1. Small bowel obstruction appears to have resolved. No pneumoperitoneum. 2. Nasogastric tube in place. 3. Increased bibasilar atelectasis/infiltrate, possible aspiration or pneumonia. Small right pleural effusion present. Dictated by: Eliel Briceño M.D. on 06/27/2018 at 8:07 Approved by: Eliel Briceño M.D. on 06/27/2018 at 8:10
[2018-06-27] MEDS: PANTOPRAZOLE 40 MG VIAL 20 MG IV (10:07)
--- NOTE | 2018-06-27 10:30 | PT.IIE ---
Current Diagnoses Peritoneal adhesions (postprocedural) (postinfection) (06/23/18) Surgery Performed Operation Date: 06/24/18 09:00 Actual Procedures p Laparoscopic Small Bowel Resection(Not Applicable) - Rosalio Farris MD s Laparoscopic Lysis of Adhesions - Rosalio Farris MD Surgical History (Last Reviewed 06/23/18 @ 18:17 by Rosalio Farris MD) History of (Acute) Medical History (Last Updated 06/23/18 @ 18:30 by Rosalio Farris MD) Mixed anxiety depressive disorder (Chronic) Gastric ulcer with hemorrhage (Resolved) Hyperlipidemia (Chronic) Iron deficiency anemia (Suspected) Cobalamin deficiency (Resolved) Small bowel obstruction (Inactive) Anxiety (Chronic Unknown) Depression (Chronic Unknown) GERD (gastroesophageal reflux disease) (Chronic Unknown) Hyperlipemia (Chronic Unknown) Hx of gastric ulcer (Resolved 2015) Physical Therapy Inpatient Evaluation/Re-Eval M1 PT/OT-IP Prior Functional Status Start: 06/27/18 13:06 Freq: NEEDED Status: Active Protocol: Document 06/27/18 10:30 AB (Rec: 06/27/18 13:15 AB [id number]) Medical Review Prior Functional Status Medical History Reviewed Yes Communication able to make needs known Mobility and Gait stated thta she is independent with all mobilities and ambulation without AD Prior Functional Level (Other details) 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 PT-IP Current Condition Start: 06/27/18 13:06 Freq: NEEDED Status: Active Protocol: Document 06/27/18 10:30 AB (Rec: 06/27/18 13:15 AB [id number]) Physical Therapy Current Condition Current Condition Evaluation Date 06/27/18 Treatment Diagnosis SBO s/p lysis of adhesions; generalized weakness Onset Date 06/23/18 Precautions Abdominal Surgery Precautions Log Roll Lifting Restrictions Gait Belt above Incisional Area Other Precautions NG tub M3 PT-IP Subjective Start: 06/27/18 13:06 Freq: NEEDED Status: Active Protocol: Document 06/27/18 10:30 AB (Rec: 06/27/18 13:15 AB [id number]) Subjective Physical Therapy Visit Type Type Initial Evaluation Visit Start Time 10:30 Visit Stop Time 11:00 Total Visit Minutes 30 Number of SIGNAL INSPECTOR Visits 0 Physical Therapy Visit Comments Patient Comments pt agreeable to do therapy Therapy Pain Assessment Pain When Pain Assessed At Rest Pain Present Pain Present Pain Reported Location epigastric Intensity 4 Scale Used Numeric (1 - 10) M4 PT-IP Mobility and Gait Start: 06/27/18 13:06 Freq: NEEDED Status: Active Protocol: Document 06/27/18 10:30 AB (Rec: 06/27/18 13:15 AB [id number]) PT-Bed Mobility Assessment Rolling Type of Rolling Log Rolling Level of Assist Standby Assistance Supine to Sit Supine to Sit Standby Assistance Sit to Supine Sit to Supine Standby Assistance PT-Transfer Assessment Sit to and From Stand Sit to and from Stand Standby Assistance Equipment Transfer Assistive Device None Transfers Transfer Destination Bed Transfer Technique Stand Step Pivot Transfer Ability Level of Assist Standby Assistance Gait Assessment Gait Gait Assistance Required: Standby Assistance Distance (Feet) (feet) 25 Able to Maintain Weight Bearing Status Yes During Gait Assistive Devices Assistive Device None Gait Deviations General Gait Pattern Decreased Stride Length Factors Limiting Gait Function Factors Limiting Gait Function Decreased Activity Tolerance Decreased Strength Pain PT-Balance Assessment Sitting Balance and Reactions Static Sitting Balance Ability Good Dynamic Sitting Balance Ability Good Standing Balance and Reactions Static Standing Balance Ability Good Dynamic Standing Balance Ability Good Device Used none M5 PT-IP Objective Assessments Start: 06/27/18 13:06 Freq: NEEDED Status: Active Protocol: Document 06/27/18 10:30 AB (Rec: 06/27/18 13:15 AB [id number]) Orientation Orientation/Cognition Level of Alertness Alert Orientation Name Age Birthday Month Date Year Day of Week Place Situation Safety Awareness Understands Safety Issues Gross Range of Motion Lower Extremity ROM Assessment Within Functional Limits Strength Lower Extremity Strength Assessment Within Functional Limits Muscle Tone Muscle Tone WNL Yes M6 PT-IP Treatment Start: 06/27/18 13:06 Freq: NEEDED Status: Active Protocol: Document 06/27/18 10:30 AB (Rec: 06/27/18 13:15 AB [id number]) Physical Therapy Treatment Education Education Provided Precautions Safety M7 PT-IP Assessment and Plan Start: 06/27/18 13:06 Freq: NEEDED Status: Active Protocol: Document 06/27/18 10:30 AB (Rec: 06/27/18 13:15 AB [id number]) PT Summary Assessment and Plan Potential Rehabilitation Potential Good Status of Condition at Evaluation Stable Summary Impairments Pain Strength Balance Bed Mobility Transfers Gait Activity Tolerance Assessment Summary pt requiring SBA with mobility but presents with decrease activity tolerance. pt plans to go home and son will assist pt. Goals Bed Mobility Goal Independent Transfer Goal Independent Gait Goal Independent Gait Distance 200 Other Goals up/down 2 steps with b rail SBA Days to Meet Goals 3 Frequency of Treatment Frequency Of Treatment Once a Day Treatment Plan Physical Therapy Treatment Plan Bed Mobility Training Transfer Training Gait Training Therapeutic Exercise Balance Retraining Post Op Education Discharge Planning Hot or Cold Pack Neuromuscular Re-ed Coordination Retraining Manual Therapy Recommendations To Nursing Amount of Assist Needed Standby Assistance Discharge Recommendations PT Discharge Recommendations Home with Assistance
--- NOTE | 2018-06-27 12:14 | PC.NURSE ---
Pt is A&Ox3. NG tube to LIS, putting out bile colored drainage. Pt given throat lozenge for comfort to throat. Up with sba to get up to the bathroom and to brush her teeth. Tolerated well. Pt is using PAPER INSERTER for comfort and helpful. Abdomen is a bit distended and bt hypoactive x4. 3 lap sites all wnl and closed with durmabond. Pt remains NPO and is back to bed after sitting up in chair for sometime. 1227- Dr. Chen just took pts NG tube and she is resting. Pt will get a suppository soon.
[2018-06-27] MEDS: BISACODYL 10 MG SUPP PR (13:57)
--- NOTE | 2018-06-27 18:48 | PM.PNPO.1 ---
Subjective Date Patient Seen: 06/27/18 Time Patient Seen: 18:49 Interval history: Patient feels cold and feels like she has little fever. Passing flatus but no bowel movement. She has been up she says out of bed. Exam Vital Signs (past 8 hours): - 06/27/18 12:30 06/27/18 15:30 Temperature 98.9 F 100.1 F H Pulse Rate 99 H 108 H Respiratory Rate 16 20 Blood Pressure 118/70 134/83 H Pulse Oximetry 97 97 Fraction of Inspired Oxygen 21 Oxygen Delivery Method Room Air Oxygen Flow Rate 0 Narrative Exam Narrative: Lungs fairly clear anteriorly but effort ever could be better. Abdomen is soft. Wounds are okay. No cellulitis. She is not tender except immediately around the incisions. I can push her right abdomen and she does not react. She is mildly distended looking. IV sites are not inflamed or indurated. Objective Labs Result Diagrams: 06/26/18 05:04 06/27/18 05:26 Labs: Laboratory Results - last 24 hr 06/27/18 05:26 Sodium 139 Potassium 3.4 Chloride 100 Carbon Dioxide 34 H BUN 4 L Creatinine 0.70 Estimated GFR > 60.0 BUN/Creatinine Ratio 5.7 L Glucose 107 H Calcium 8.5 Magnesium 1.6 Total Bilirubin 0.5 AST 25 ALT 20 Alkaline Phosphatase 75 Total Protein 6.3 Albumin 3.4 L Globulin 2.9 Albumin/Globulin Ratio 1.2 Assessment & Plan Post-op Postoperative Procedures Operation Date: 06/24/18 09:00 Actual Procedures Side Surgeon p Laparoscopic Small Bowel Resection Not Applicable Rosalio Farris MD s Laparoscopic Lysis of Adhesions Rosalio Farris MD Postoperative status: febrile (Low-grade temp. Will work on her breathing. Mobilization. Tylenol.) Postoperative plan: see orders Time Spent With Patient 25 - 35 minutes (Seen twice)
[2018-06-27] MEDS: ACETAMINOPHEN 325 MG TABLET 650 MG PO (18:53)
--- NOTE | 2018-06-27 19:10 | PC.NURSE ---
Addendum entered by Malia Escobedo R.N. 06/27/18 20:53: Pt temp now 99.2. States I feel better. Providing popcicle and sips of apple juice. Original Note: Dr Chen in to see pt. New orders for APAP 650mgPO for low grade temp 101.1, and I.S. Pt used I.S. once for 500 at one breath. I will do more later. Pt refused to get up and ambulate. Orders for sips of clears and jello. c/O itching, medicated with benedryl 25mg IVP, effective. Call light in reach and bed alarm on.
[2018-06-27] MEDS: DULOXETINE 20 MG CAPSULE PO (20:47)
[2018-06-27] MEDS: GABAPENTIN 300 MG CAPSULE PO (20:47)
[2018-06-27] MEDS: HYDROMORPHONE PCA 6 MG/30 ML PCA.VIAL 2.2 MG IV (23:29)
[2018-06-28] VITALS (7 sets, daily range): BP systolic 100–131; BP diastolic 62–94; PULSE 68–103; RESP 16–18; TEMP 36.3–37; O2SAT 96–100
[2018-06-28] MEDS: DEXTROSE 5%-0.45% NS 1,000 ML 100 ML IV ×2 (00:02→10:08)
[2018-06-28] MEDS: KETOROLAC 30 MG/ML VIAL IV ×2 (00:04→06:11)
[2018-06-28] MEDS: ACETAMINOPHEN 325 MG TABLET 650 MG PO ×2 (00:06→06:11)
[2018-06-28] MEDS: diphenhydrAMINE 50 MG/ML VIAL 25 MG IV ×2 (02:21→10:23)
[2018-06-28 05:26] LABS: Add Manual Diff / Slide Review NO; Basophils Percent Auto 0.6 % (0-2); Eosinophils Percent Auto 1.7 % (2-4); Hematocrit 35.1 % (36-46); Hemoglobin 11.3 g/dL (12.0-16.0); Lymphocytes Percent Auto 24.9 % (25-40); Mean Corpuscular HGB Conc 32.3 % (30-36); Mean Corpuscular Hemoglobin 26.6 PG (26-34); Mean Corpuscular Volume 82.3 fL (80-100); Monocytes Percent Auto 8.7 % (3-14); Neutrophils Absolute Auto 6500 /uL (3000-5900); Neutrophils Percent Auto 64.1 % (50-75); Platelet Count 283 X10^3/uL (150-400); Red Blood Cell Count 4.27 X10^6/uL (4.0-5.2); Red Cell Distribution Width 13.4 % (11.6-14.8); White Blood Cell Count 10.2 X10^3/uL (4.5-11.0)
[2018-06-28] MEDS: HEPARIN 5,000 UNIT/ML VIAL 5000 UNIT SUBCUT ×3 (06:10→20:26)
[2018-06-28] MEDS: HYDROMORPHONE PCA 6 MG/30 ML PCA.VIAL IV (06:10)
[2018-06-28] MEDS: PANTOPRAZOLE 40 MG VIAL 20 MG IV (10:16)
[2018-06-28] MEDS: DULOXETINE 20 MG CAPSULE PO ×2 (10:17→20:26)
[2018-06-28] MEDS: GABAPENTIN 300 MG CAPSULE PO ×2 (10:17→20:26)
--- NOTE | 2018-06-28 11:00 | PT.IPTN ---
Current Diagnoses Peritoneal adhesions (postprocedural) (postinfection) (06/23/18) Surgery Performed Operation Date: 06/24/18 09:00 Actual Procedures p Laparoscopic Small Bowel Resection(Not Applicable) - Rosalio Farris MD s Laparoscopic Lysis of Adhesions - Rosalio Farris MD Physical Therapy Treatment Note M2 PT-IP Current Condition Start: 06/27/18 13:06 Freq: NEEDED Status: Active Protocol: Document 06/27/18 10:30 AB (Rec: 06/27/18 13:15 AB [id number]) Physical Therapy Current Condition Current Condition Evaluation Date 06/27/18 Treatment Diagnosis SBO s/p lysis of adhesions; generalized weakness Onset Date 06/23/18 Precautions Abdominal Surgery Precautions Log Roll Lifting Restrictions Gait Belt above Incisional Area Other Precautions NG tub M3 PT-IP Subjective Start: 06/27/18 13:06 Freq: NEEDED Status: Active Protocol: Document 06/28/18 11:00 LJ (Rec: 06/28/18 13:05 LJ [id number]) Subjective Physical Therapy Visit Type Type Treatment Note Visit Start Time 11:00 Visit Stop Time 11:30 Total Visit Minutes 30 Physical Therapy Visit Comments Patient Comments pt agreeable to do therapy Therapy Pain Assessment Pain When Pain Assessed During Mobility Pain Present Pain Present Pain Reported Location epigastric Intensity 7 Scale Used Numeric (1 - 10) Pain Behaviors Facial Grimacing Guarding Restlessness Pain Management Techniques Re-positioning M4 PT-IP Mobility and Gait Start: 06/27/18 13:06 Freq: NEEDED Status: Active Protocol: Document 06/28/18 11:00 HELADIO (Rec: 06/28/18 13:05 LJ [id number]) PT-Bed Mobility Assessment Rolling Type of Rolling Log Rolling Level of Assist Standby Assistance Supine to Sit Supine to Sit Standby Assistance Scooting Scooting to Edge of Bed Standby Assistance PT-Transfer Assessment Sit to and From Stand Sit to and from Stand Standby Assistance Equipment Transfer Assistive Device None Orthotic/Prosthetic Devices or Brace: No Transfers Transfer Destination Toilet Transfer Technique Stand Step Pivot Transfer Ability Level of Assist Standby Assistance Comments Mobility Comments Pt able to perform bed mobility with SBA and cues for log rolling in controlled manner Gait Assessment Gait Gait Assistance Required: Standby Assistance Able to Maintain Weight Bearing Status Yes During Gait Assistive Devices Assistive Device None Orthotic/Prosthetic Devices or Brace: Yes Gait Deviations General Gait Pattern Within Normal Limits Factors Limiting Gait Function Factors Limiting Gait Function Decreased Activity Tolerance Decreased Strength Pain PT-Balance Assessment Sitting Balance and Reactions Static Sitting Balance Ability Good Dynamic Sitting Balance Ability Good Standing Balance and Reactions Static Standing Balance Ability Good M5 PT-IP Objective Assessments Start: 06/27/18 13:06 Freq: NEEDED Status: Active Protocol: Document 06/27/18 10:30 AB (Rec: 06/27/18 13:15 AB [id number]) Orientation Orientation/Cognition Level of Alertness Alert Orientation Name Age Birthday Month Date Year Day of Week Place Situation Safety Awareness Understands Safety Issues Gross Range of Motion Lower Extremity ROM Assessment Within Functional Limits Strength Lower Extremity Strength Assessment Within Functional Limits Muscle Tone Muscle Tone WNL Yes M6 PT-IP Treatment Start: 06/27/18 13:06 Freq: NEEDED Status: Active Protocol: Document 06/28/18 11:00 LJ (Rec: 06/28/18 13:05 LJ [id number]) Physical Therapy Treatment Exercises Exercises Ankle Pumps Gluteal Sets Quad Sets Heel Slides Supine Hip Abduction Education Education Provided Precautions Safety M7 PT-IP Assessment and Plan Start: 06/27/18 13:06 Freq: NEEDED Status: Active Protocol: Document 06/28/18 11:00 LJ (Rec: 06/28/18 13:05 LJ [id number]) PT Summary Assessment and Plan Potential Rehabilitation Potential Good Status of Condition at Evaluation Stable Summary Impairments Pain Strength Balance Bed Mobility Transfers Gait Activity Tolerance Progress Towards Goals Progressing Toward Goals Assessment Summary Pt requiring SBA for bed mobility and gait with cues for log rolling and posture during gait. Goals Bed Mobility Goal Independent Recommendations To Nursing Amount of Assist Needed Standby Assistance Discharge Recommendations PT Discharge Recommendations Home with Assistance
[2018-06-28] MEDS: OXYCODONE 5 MG/5 ML ORAL SOLUTION PO ×3 (13:48→20:25)
[2018-06-28] MEDS: BISACODYL 10 MG SUPP PR (14:14)
--- NOTE | 2018-06-28 15:05 | PC.NURSE ---
day shift pt laying in bed, states pain present in lower abd of 6/10. states FIELD SERVICE TECHNICIAN POULTRY is not helping her pain. notified MD and orders changed to oxy liquid and FIELD SERVICE TECHNICIAN POULTRY stopped. pt also c/o itching and requests benadryl PRN. Encouraged IS use as lungs diminished. she was using IS incorrectly, re-educated and encouraged long slow deep breaths, able to increase IS from 500 ml to 1500 ml. She will need frequent reminders to do this. Pt also did not want to get out of bed. with a lot of encouragement, she was up in the chair for about 2 hrs around lunch and then went for a walk in the hallway for at least 300 feet. hourly rounding provided, call light within reach.
--- NOTE | 2018-06-28 15:54 | PM.PNPO.1 ---
Subjective Date Patient Seen: 06/28/18 Time Patient Seen: 12:00 Interval history: Patient has febrile last night. She is not been febrile today. She is passing a large amount of flatus she says has not had a bowel movement. Pain is not completely relieved with present medications. She would like her diet advanced. Exam Vital Signs (past 8 hours): - 06/28/18 07:55 06/28/18 12:00 Temperature 98.5 F 98.1 F Pulse Rate 70 68 Respiratory Rate 16 17 Blood Pressure 130/67 H 130/70 H Pulse Oximetry 97 96 Fraction of Inspired Oxygen 21 Oxygen Delivery Method Room Air Oxygen Flow Rate 0 Narrative Exam Narrative: A little better effort than yesterday. I hear air movement in the bases today but it is decreased on the left compared to the right. Active bowel sounds are present. Wounds look fine. Objective Labs Result Diagrams: 06/28/18 05:06 06/27/18 05:26 Labs: Laboratory Results - last 24 hr 06/28/18 05:06 WBC 10.2 RBC 4.27 Hgb 11.3 L Hct 35.1 L MCV 82.3 MCH 26.6 MCHC 32.3 RDW 13.4 Plt Count 283 Neut % (Auto) 64.1 Lymph % (Auto) 24.9 L [place] % (Auto) 8.7 Eos % (Auto) 1.7 L Baso % (Auto) 0.6 Neut # (Auto) 6500 H Assessment & Plan Post-op Postoperative Procedures Operation Date: 06/24/18 09:00 Actual Procedures Side Surgeon p Laparoscopic Small Bowel Resection Not Applicable Rosalio Farris MD s Laparoscopic Lysis of Adhesions Rosalio Farris MD Postoperative status: doing well and other (Will change pain meds to oral) Postoperative plan: routine post-op care, advance diet and other (Continue to work on incentive spirometry and deep breathing) Time Spent With Patient less than 15 minutes
[2018-06-29] VITALS (8 sets, daily range): BP systolic 94–137; BP diastolic 55–93; PULSE 73–108; RESP 16–20; TEMP 35.8–36.8; O2SAT 95–100
[2018-06-29] MEDS: OXYCODONE 5 MG/5 ML ORAL SOLUTION PO ×3 (00:28→06:53)
[2018-06-29] MEDS: diphenhydrAMINE 50 MG/ML VIAL 25 MG IV (00:32)
[2018-06-29] MEDS: DEXTROSE 5%-0.45% NS 1,000 ML 42 ML IV (03:50)
[2018-06-29] MEDS: HEPARIN 5,000 UNIT/ML VIAL 5000 UNIT SUBCUT ×3 (06:54→22:06)
[2018-06-29] MEDS: DULOXETINE 20 MG CAPSULE PO ×2 (08:32→21:03)
[2018-06-29] MEDS: PANTOPRAZOLE 40 MG VIAL 20 MG IV (08:32)
[2018-06-29] MEDS: GABAPENTIN 300 MG CAPSULE PO ×2 (08:32→21:03)
[2018-06-29] MEDS: ACETAMINOPHEN 325 MG TABLET 650 MG PO (08:34)
--- NOTE | 2018-06-29 11:45 | PT.IPTN ---
Current Diagnoses Peritoneal adhesions (postprocedural) (postinfection) (06/23/18) Surgery Performed Operation Date: 06/24/18 09:00 Actual Procedures p Laparoscopic Small Bowel Resection(Not Applicable) - Rosalio Farris MD s Laparoscopic Lysis of Adhesions - Rosalio Farris MD Physical Therapy Treatment Note M2 PT-IP Current Condition Start: 06/27/18 13:06 Freq: NEEDED Status: Active Protocol: Document 06/27/18 10:30 AB (Rec: 06/27/18 13:15 AB [id number]) Physical Therapy Current Condition Current Condition Evaluation Date 06/27/18 Treatment Diagnosis SBO s/p lysis of adhesions; generalized weakness Onset Date 06/23/18 Precautions Abdominal Surgery Precautions Log Roll Lifting Restrictions Gait Belt above Incisional Area Other Precautions NG tub M3 PT-IP Subjective Start: 06/27/18 13:06 Freq: NEEDED Status: Active Protocol: Document 06/29/18 14:28 AB (Rec: 06/29/18 14:29 AB [id number]) Subjective Physical Therapy Visit Type Type Patient Refusal Notes checked on pt 2x and pt was asleep. checked on pt again and is awake but refused PT. stated that she did it PT yesterday. pt educated and agreed to do therapy in the afternoon.
[2018-06-29] MEDS: OXYCODONE IR 5 MG TABLET PO ×3 (13:15→21:03)
[2018-06-29] MEDS: FLEETS ENEMA 1 EACH PR (13:15)
--- NOTE | 2018-06-29 15:18 | PT.IPTN ---
Current Diagnoses Peritoneal adhesions (postprocedural) (postinfection) (06/23/18) Surgery Performed Operation Date: 06/24/18 09:00 Actual Procedures p Laparoscopic Small Bowel Resection(Not Applicable) - Rosalio Farris MD s Laparoscopic Lysis of Adhesions - Rosalio Farris MD Physical Therapy Treatment Note M2 PT-IP Current Condition Start: 06/27/18 13:06 Freq: NEEDED Status: Active Protocol: Document 06/27/18 10:30 AB (Rec: 06/27/18 13:15 AB [id number]) Physical Therapy Current Condition Current Condition Evaluation Date 06/27/18 Treatment Diagnosis SBO s/p lysis of adhesions; generalized weakness Onset Date 06/23/18 Precautions Abdominal Surgery Precautions Log Roll Lifting Restrictions Gait Belt above Incisional Area Other Precautions NG tub M3 PT-IP Subjective Start: 06/27/18 13:06 Freq: NEEDED Status: Active Protocol: Document 06/29/18 15:17 GGD (Rec: 06/29/18 15:18 GGD [id number]) Subjective Physical Therapy Visit Type Type Patient Refusal Notes Pt refused, she states that she been up walking and is trying to go to the bathroom. Will see in AM, for safety with gait and stair training. Goals Bed Mobility Goal Independent Recommendations To Nursing Amount of Assist Needed Standby Assistance Discharge Recommendations PT Discharge Recommendations Home with Assistance
--- NOTE | 2018-06-29 17:55 | PM.PNPO.1 ---
Subjective Date Patient Seen: 06/29/18 Time Patient Seen: 17:55 Interval history: Patient feels okay. Had a hard bowel movement. Little nausea today. Exam Vital Signs (past 8 hours): - 06/29/18 11:15 06/29/18 15:20 Temperature 98.1 F 97.3 F L Pulse Rate 73 98 H Respiratory Rate 20 Blood Pressure 137/88 H Pulse Oximetry 100 Fraction of Inspired Oxygen 21 Oxygen Delivery Method Room Air Oxygen Flow Rate 0 Narrative Exam Narrative: Afebrile. Abdomen is soft. Wounds are fine. No cellulitis. Objective Labs Result Diagrams: 06/28/18 05:06 06/27/18 05:26 Assessment & Plan Post-op Postoperative Procedures Operation Date: 06/24/18 09:00 Actual Procedures Side Surgeon p Laparoscopic Small Bowel Resection Not Applicable Rosalio Farris MD s Laparoscopic Lysis of Adhesions Rosalio Farris MD Postoperative status: doing well Postoperative plan: discharge (In a.m.) Time Spent With Patient less than 15 minutes
[2018-06-29] MEDS: IBUPROFEN 400 MG TABLET 800 MG PO (21:03)
[2018-06-30] MEDS: ACETAMINOPHEN 325 MG TABLET 650 MG PO (01:50)
[2018-06-30] MEDS: OXYCODONE IR 5 MG TABLET PO ×3 (01:51→11:57)
[2018-06-30 06:08] VITALS: BP 105/60; PULSE 87; RESP 16; TEMP 36.7; O2SAT 96
[2018-06-30] MEDS: IBUPROFEN 400 MG TABLET 800 MG PO (06:52)
[2018-06-30] MEDS: HEPARIN 5,000 UNIT/ML VIAL 5000 UNIT SUBCUT (06:53)
[2018-06-30] MEDS: PANTOPRAZOLE 40 MG TABLET PO (06:53)
[2018-06-30 08:00] VITALS: BP 105/64; PULSE 86; RESP 16; TEMP 36.7; O2SAT 98
[2018-06-30] MEDS: DULOXETINE 20 MG CAPSULE PO (09:11)
[2018-06-30] MEDS: GABAPENTIN 300 MG CAPSULE PO (09:11)
--- NOTE | 2018-06-30 13:55 | PC.NURSE ---
Pt has showered, eaten lunch, is dressed and packed up ready to go. Reviewed d/c instructions with Pt. Pt's son picked up Pt's new prescriptions. Reviewed discharge meds and follow up. Discussed stroke education. Pt denies further questions and declined w/c and was escorted to main entrance by GAS GENERATOR OPERATOR for pickup by Taxi.
--- NOTE | 2018-06-30 15:06 | CM.DPC ---
DCP: continued: case was again received yesterday, EMR reviewed and noted pt up mobilizing with her son in the halls. Dr. Chen saw pt today and ok'd her for home. Conferred with TEVIN Valle and then met with pt and son Eliel. Pt agreeable to the d/c today but identifies need for transport to home (lives at [facility] property/owned by her employer [employer]. (apts are set up for staff that work at his facilities). Pt has her car here at hospital but cannot drive due to current medications needed and her son is not able to drive. As her funds are very limited agreed to set up Danilo's taxi: [employer]/done. Pt also needed medications and Dr. Chen has already sent these electronically to [facility]. Eliel was agreeable to walk to [facility] to pick these up. He had his mother's cell # and CM contact # in case pharmacist had questions. All was successfully completed and pt and son did d/c as planned by i at 1445.
--- NOTE | 2018-06-30 15:37 | PM.DS.1 ---
History of Present Illness Chief complaint: CHEST PAIN Discharge Providers Date of admission: 06/23/18 16:35 Primary care physician: Monica Simons PA-C Consults: 06/26/18 10:24 Consult to Physical Therapy Evaluate & Treat Comment: Physician Instructions: Evaluate and Treat Discharge provider: Alin Chen MD Summary Discharge Diagnosis: Small-bowel obstruction secondary to dense adhesions Enterotomy unavoidable secondary to the nature of her adhesions and scarring Postoperative ileus not particularly unusual Hypokalemia Anemia most likely related to hydration status and operation. Fever postoperatively most likely related to atelectasis. Hospital Course: Patient underwent a laparoscopic adhesiolysis and an anastomosis to repair small unavoidable enterotomy. Postoperatively the patient had an NG for several days. Was ultimately removed. It was several more days until she was able to tolerate a general diet had return of good bowel function and was discharged. She will follow up with Dr. Farris next week. Exam Vital Signs (past 8 hours): - 06/30/18 08:00 Temperature 98.0 F Pulse Rate 86 Respiratory Rate 16 Blood Pressure 105/64 Pulse Oximetry 98 Fraction of Inspired Oxygen 21 Oxygen Delivery Method Room Air Oxygen Flow Rate 0 Narrative Exam Narrative: Lungs clear. Wounds fine. Abdomen is scaphoid. Objective Labs Result Diagrams: 06/28/18 05:06 06/27/18 05:26 Discharge Plan Discharge Plan Patient Disposition: Home Discharge comment: You have an appointment to see Dr. Farris next at 10:00 a.m at the offices of [facility]. You have 2 prescriptions that have been sent to [facility] pharmacy in [place] and a 3rd 1 you will have to hand carry. All 3 of these are for pain and they will not interact with 1 another. You should be active at home. You should take a laxative like milk of magnesia if you need it. Discuss returning to work with Dr. Farris when you see him. Provider Discharge Instructions Diet: Diet as Tolerated Activity: Do not lift over 10 lb or strain for 3 more weeks. You may walk. You may bathe/shower Skin/Wound/Dressing Care Report to your healthcare provider any signs of infection, such as:: chills, fever, night sweats and unusual drainage Discharge Data Primary Care Provider: Monica Simons Attending Provider: Rosalio Farrisit Date/Time: 06/23/18 16:35 Discharges patient from system. Discharge Date/Time: 06/30/18 14:01
--- NOTE | 2018-06-30 15:40 | P.DS_ITS ---
History of Present Illness Chief complaint: CHEST PAIN Discharge Providers Date of admission: 06/23/18 16:35 Primary care physician: Monica Simons PA-C Consults: 06/26/18 10:24 Consult to Physical Therapy Evaluate & Treat Comment: Physician Instructions: Evaluate and Treat Discharge provider: Alin Chen MD Summary Discharge Diagnosis: Small-bowel obstruction secondary to dense adhesions Enterotomy unavoidable secondary to the nature of her adhesions and scarring Postoperative ileus not particularly unusual Hypokalemia Anemia most likely related to hydration status and operation. Fever postoperatively most likely related to atelectasis. Hospital Course: Patient underwent a laparoscopic adhesiolysis and an anastomosis to repair small unavoidable enterotomy. Postoperatively the patient had an NG for several days. Was ultimately removed. It was several more days until she was able to tolerate a general diet had return of good bowel function and was discharged. She will follow up with Dr. Farris next week. Exam Vital Signs (past 8 hours): - 06/30/18 08:00 Temperature 98.0 F Pulse Rate 86 Respiratory Rate 16 Blood Pressure 105/64 Pulse Oximetry 98 Fraction of Inspired Oxygen 21 Oxygen Delivery Method Room Air Oxygen Flow Rate 0 Narrative Exam Narrative: Lungs clear. Wounds fine. Abdomen is scaphoid. Objective Labs Result Diagrams: 06/28/18 05:06 06/27/18 05:26 Discharge Plan Discharge Plan Patient Disposition: Home Discharge comment: You have an appointment to see Dr. Farris next at 10:00 a.m at the offices of [facility]. You have 2 prescriptions that have been sent to [facility] in [place] and a 3rd 1 you will have to hand carry. All 3 of these are for pain and they will not interact with 1 another. You should be active at home. You should take a laxative like milk of magnesia if you need it. Discuss returning to work with Dr. Farris when you see him. Provider Discharge Instructions Diet: Diet as Tolerated Activity: Do not lift over 10 lb or strain for 3 more weeks. You may walk. You may bathe/shower Skin/Wound/Dressing Care Report to your healthcare provider any signs of infection, such as:: chills, fever, night sweats and unusual drainage Discharge Data Primary Care Provider: Monica Simons Attending Provider: Rosalio Farrisit Date/Time: 06/23/18 16:35 Discharges patient from system. Discharge Date/Time: 06/30/18 14:01
== END 2018-06-30 14:01 | disposition home or self-care (01) | DRG 221 ==
LOC: ED 16:12 → AC 16:36
PROVIDERS: Specialist; Admitting Provider Surgery; Emergency Provider Emergency Medicine; Family Provider Physician Assistant; PCP Physician Assistant; Visit Provider Surgery
PROC: 0DN84ZZ Release Small Intestine, Percutaneous Endoscopic Approach (ICD-10-PCS; CPT 49000; principal; 2018-06-24 09:00)
PROC: 0DN84ZZ Release Small Intestine, Percutaneous Endoscopic Approach (ICD-10-PCS; 2018-06-24 09:00)
DX: K56.50 Intestinal adhesions [bands], unspecified as to partial versus complete obstruction (principal); K66.0 Peritoneal adhesions (postprocedural) (postinfection); J98.11 Atelectasis; E87.6 Hypokalemia; K91.71 Accidental puncture and laceration of a digestive system organ or structure during a digestive system procedure; F41.8 Other specified anxiety disorders; K21.9 Gastro-esophageal reflux disease without esophagitis
CPT/HCPCS: 36415; 36591; 36592; 44180; 44202; 71045; 74018; 74022; 74177; 80053; 82550; 82553; 83690; 83735; 84484; 85025; 85027; 85610; 85730; 88307; 93005; 93010; 94760; 96361; 96374; 96375; 96376; 97110; 97116; 97161; 97530; 99222; 99283; 99285; C9113; J0610; J0690; J1100; J1170; J1200; J1644; J1885; J2250; J2405; J3010; J3480

== ENCOUNTER 2018-07-12 14:34 | Inpatient (IN) | payer OTHER, MEDICAID, SELFPAY ==
[2018-06-23 18:42] VITALS: BMI 26.5
[2018-07-12] VITALS (7 sets, daily range): BP systolic 113–135; BP diastolic 71–95; PULSE 85–104; RESP 14–21; TEMP 36.1–37.7; O2SAT 87–100; BMI 24.7
--- NOTE | 2018-07-12 15:16 | DI.RAD.S_ITS ---
PROCEDURE: XR ABDOMEN MIN 2V INDICATIONS: vomiting recent SBO TECHNIQUE: 2 views of the abdomen were acquired. COMPARISON: [facility], CT, CT ABDOMEN PELVIS W CON, 06/23/2018, 15:03. [facility], CR, XR ACUTE ABDOMEN SERIES, 06/27/2018, 5:53. [facility], CR, XR ABDOMEN 1V, 06/24/2018, 5:49. FINDINGS: Surgical changes and devices: None. Bowel: Dilated loops of small bowel are seen that measure up to 2.8 cm. On the upright image, differential air-fluid levels are seen. Soft tissues: No masses; visualized solid organ contours appear normal in size. No suspicious abdominal calcifications. Bones: No suspicious bony abnormalities. IMPRESSION: These imaging findings are highly suspicious for small bowel obstruction, with dilated loops of small bowel that demonstrate differential air fluid levels. Dictated by: Florentino Manning M.D. on 07/12/2018 at 15:16 Approved by: Florentino Manning M.D. on 07/12/2018 at 15:18
--- NOTE | 2018-07-12 15:20 | ED.ABDPAIN ---
HPI - Abdominal Pain General Chief Complaint: Abdominal Pain Stated Complaint: STOMACH PAINS Time Seen by Provider: 07/12/18 14:47 Source: patient Mode of arrival: ambulatory Limitations: no limitations History of Present Illness HPI narrative: The patient is a 47-year-old female who presents with nausea and vomiting. She had a small bowel obstruction with a small bowel resection 06/24/2018. Last evening she ate some fried chicken and some bad Persian fries from [employer] fried chicken. Her son ate them as well however she is only with vomiting and stomach pain. She had a bowel movement yesterday and today. She has epigastric pain. No chest pain shortness of breath. She continues to feel nauseous. MD complaint: abdominal pain Pain Consistency: constant Related Data Previous Rx's Medication Instructions Recorded omeprazole 40 mg PO QDAY #30 cap 02/02/18 duloxetine 20 mg capsule,delayed 20 mg PO BID #60 cap 04/26/18 release multivitamin [Multiple Vitamins] 1 tab PO QDAY #0 tab NS 06/24/18 oxycodone-acetaminophen See Label Instructions .ROUTE 06/30/18 .COMPLEX PRN #14 tab Allergies Allergy/AdvReac Type Severity Reaction Status Date / Time No Known Drug Allergies Allergy Verified 06/23/18 16:08 Review of Systems Review of Systems GENERAL: Denies chills, fatigue, malaise, fever, sweats, travel HEENT: Denies sinus pain, ear pain, sore throat, difficulty swallowing, neck pain RESPIRATORY: Denies dyspnea, cough, wheezing, hemoptysis, sputum. CARDIOVASCULAR: Denies chest pain, palpitations, orthopnea, edema GASTROINTESTINAL: See HPI : Denies dysuria, frequency, incontinence, hematuria, urinary retention, flank pain. MUSCULOSKELETAL: Denies weakness, joint pain, or bony pain SKIN: No rash, no erythema, no pruritus NEUROLOGIC: Denies weakness, dizziness, headache, numbness, change in speech, confusion PSYCHIATRIC: No concerning psychosocial issues. 12 point review of systems is negative except for those stated above and [facility] Medical History History of small bowel obstruction (Acute) Adhesion of intestine (Acute) Mixed anxiety depressive disorder (Chronic) Gastric ulcer with hemorrhage (Resolved) Hyperlipidemia (Chronic) Iron deficiency anemia (Suspected) Cobalamin deficiency (Resolved) Anxiety (Chronic Unknown) Depression (Chronic Unknown) GERD (gastroesophageal reflux disease) (Chronic Unknown) Hyperlipemia (Chronic Unknown) Hx of gastric ulcer (Resolved 2016) Small bowel obstruction (Inactive) Surgical History Status post small bowel resection (Acute) History of (Acute) Family History: Reviewed 07/12/18 by Suyapa Rios MD Social History household members: family Smoking Status: Never smoker Exam Initial Vital Signs Initial Vital Signs: Vital Signs Temperature 99.8 F H 07/12/18 14:47 Pulse Rate 104 H 07/12/18 14:47 Respiratory Rate 20 07/12/18 14:47 Blood Pressure 128/95 H 07/12/18 14:47 Pulse Oximetry 100 07/12/18 14:47 GENERAL: [Well-appearing, well-nourished] and in [no acute] distress. HEENT: Head atraumatic,EOMI, pupils reactive, CARDIOVASCULAR: Regular rate and rhythm without murmurs, rubs or gallops. RESPIRATORY: Breath sounds equal bilaterally, no wheezes rales or rhonchi. ABDOMEN: Soft, slightly distended epigastric tenderness no guarding no rebound negative Miller sign EXTREMITIES: Normal range of motion, no clubbing or edema. Neurovascularly intact NEUROLOGICAL: Alert and oriented x4.Normal gait and speech. Cranial nerves II through XII grossly intact. SKIN: Warm, dry, no laceration, no petechiae, no rashes or lesions. Course Orders Ordered: ED Orders 07/13/18 05:19 Basic Metabolic Panel Routine Complete Blood Count AUTO DIFF Routine Diphenhydramine HCl (Benadryl) 25 mg IV Q6HR PRN PRN Reason: Itching Enoxaparin Sodium (Lovenox) 40 mg SUBCUT DAILY LYNDA Dextrose/Sodium Chloride (Dextrose 5%-0.45% Ns) 1,000 mls @ 125 mls/hr IV CONT LYNDA Last Admin: 07/13/18 04:26 Dose: 125 mls/hr Infusion: 07/13/18 04:24 Dose: 0 mls/hr Admin: 07/12/18 19:50 Dose: 125 mls/hr HYDROMORPHONE B[employer] (Dilaudid 6 Mg/30 Ml) 6 mg in 30 mls @ 0 mls/hr IV Q8HR LYNDA Last Admin: 07/13/18 06:16 Dose: 0 mls/hr Admin: 07/12/18 22:19 Dose: 0 mls/hr Admin: 07/12/18 19:57 Dose: 0 mls/hr Lorazepam (Ativan) 1 mg IV Q4H PRN PRN Reason: Anxiety Last Admin: 07/13/18 02:55 Dose: 1 mg Admin: 07/12/18 22:13 Dose: 1 mg Naloxone HCl (Narcan) 0.2 mg IV Q2MIN PRN; Protocol PRN Reason: Opiate Reversal Pantoprazole Sodium (Protonix) 40 mg IV BID LYNDA Last Admin: 07/12/18 20:51 Dose: 40 mg Discontinued Medications Hydromorphone HCl (Dilaudid) 1 mg IV Q1H PRN PRN Reason: Pain, Moderate (4-6) Last Admin: 07/12/18 17:29 Dose: 1 mg Hydromorphone HCl (Dilaudid) 0.5 mg IV NOW ONE Stop: 07/12/18 17:43 Last Admin: 07/12/18 20:06 Dose: Sodium Chloride (Normal Saline 0.9%) 1,000 mls @ 150 mls/hr IV CONT [facility] Last Infusion: 07/12/18 18:39 Dose: 150 mls/hr Admin: 07/12/18 15:52 Dose: 150 mls/hr Morphine Sulfate (Morphine) 2 mg IV NOW ONE Stop: 07/12/18 15:15 Last Admin: 07/12/18 15:52 Dose: 2 mg Ondansetron HCl (Zofran) 4 mg IV NOW ONE Stop: 07/12/18 15:15 Last Admin: 07/12/18 15:52 Dose: 4 mg Pantoprazole Sodium (Protonix) 40 mg IV NOW ONE Stop: 07/12/18 15:15 Last Admin: 07/12/18 15:52 Dose: 40 mg Vital Signs - 8 hr 07/13/18 00:00 07/13/18 04:30 Temperature 97.9 F 97.6 F Pulse Rate 86 81 Respiratory Rate 18 12 Blood Pressure 108/60 99/64 Pulse Oximetry 96 97 MDM - Abdominal Pain Medical Records Attestation: I reviewed the patient's medical records. Lab Data Attestation: I reviewed the patient's lab results. Result diagrams: 07/13/18 05:19 07/13/18 05:19 Lab Results 07/12/18 07/12/18 07/12/18 Range/Units 15:50 15:50 15:50 WBC 10.2 (4.5-11.0) X10^3/uL RBC 4.77 (4.0-5.2) X10^6/uL Hgb 12.5 (12.0-16.0) g/dL Hct 38.6 (36-46) % MCV 80.9 (80-100) fL MCH 26.1 (26-34) PG MCHC 32.3 (30-36) % RDW 13.7 (11.6-14.8) % Plt Count 542 H (150-400) X10^3/uL Neut % (Auto) 68.0 (50-75) % Lymph % (Auto) 24.5 L (25-40) % [place] % (Auto) 5.3 (3-14) % Eos % (Auto) 0.8 L (2-4) % Baso % (Auto) 1.4 (0-2) % Neut # (Auto) 7000 H (1396-2882) /uL Sodium 142 (137-145) mmol/L Potassium 4.2 (3.4-5.1) mmol/L Chloride 103 (98-107) mmol/L Carbon Dioxide 29 (22-32) mmol/L BUN 10 (7-17) mg/dL Creatinine 0.80 (0.52-1.04) mg/dL Estimated GFR > 60.0 (>60) mL/min BUN/Creatinine Ratio 12.5 (6-22) Glucose 99 (70-100) mg/dL Calcium 9.6 (8.4-10.2) mg/dL Total Bilirubin 0.8 (0.2-1.3) mg/dL AST 22 (14-36) IU/L ALT 18 (9-52) IU/L Alkaline Phosphatase 92 (38-126) U/L Total Protein 7.5 (6.3-8.2) g/dL Albumin 4.4 (3.5-5.0) g/dL Globulin 3.1 (1.7-4.1) g/dL Albumin/Globulin Ratio 1.4 (1.0-2.8) Lipase 69 (23-300) U/L Procalcitonin < 0.05 (<0.5) ng/mL Urine RBC (0-5/HPF) Urine WBC (0-5/HPF) Ur Squamous Epith Cells Urine Bacteria (None) Ur Culture Indicated? Micro UA Comment 07/12/18 07/13/18 07/13/18 Range/Units 16:25 05:19 05:19 WBC 6.9 (4.5-11.0) X10^3/uL RBC 4.02 (4.0-5.2) X10^6/uL Hgb 10.5 L (12.0-16.0) g/dL Hct 32.9 L (36-46) % MCV 81.9 (80-100) fL MCH 26.2 (26-34) PG MCHC 32.0 (30-36) % RDW 13.3 (11.6-14.8) % Plt Count 427 H (150-400) X10^3/uL Neut % (Auto) 50.2 (50-75) % Lymph % (Auto) 38.9 (25-40) % [place] % (Auto) 8.4 (3-14) % Eos % (Auto) 2.2 (2-4) % Baso % (Auto) 0.3 (0-2) % Neut # (Auto) 3500 (0335-8928) /uL Sodium 141 (137-145) mmol/L Potassium 3.7 (3.4-5.1) mmol/L Chloride 104 (98-107) mmol/L Carbon Dioxide 30 (22-32) mmol/L BUN 9 (7-17) mg/dL Creatinine 0.90 (0.52-1.04) mg/dL Estimated GFR > 60.0 (>60) mL/min BUN/Creatinine Ratio 10.0 (6-22) Glucose 115 H (70-100) mg/dL Calcium 8.6 (8.4-10.2) mg/dL Total Bilirubin (0.2-1.3) mg/dL AST (14-36) IU/L ALT (9-52) IU/L Alkaline Phosphatase (38-126) U/L Total Protein (6.3-8.2) g/dL Albumin (3.5-5.0) g/dL Globulin (1.7-4.1) g/dL Albumin/Globulin Ratio (1.0-2.8) Lipase (23-300) U/L Procalcitonin (<0.5) ng/mL Urine RBC 0-1/hpf (0-5/HPF) Urine WBC 0-1/hpf (0-5/HPF) Ur Squamous Epith Cells 10-30 /hpf H Urine Bacteria Occasional (0-1) (None) Ur Culture Indicated? Cult not indicated Micro UA Comment Not Reportable Point of care testing: Urine Dip Bedside Urine Glucose Negative Bedside Urine Bilirubin - Negative Bedside Urine Ketone - Negative Urine Specific [place] 1.010 Bedside Urine Occult Blood +/- Bedside Urine pH 6.0 Bedside Urine Protein - Negative Bedside Urine Urobilinogen - Negative Bedside Urine Nitrite - Negative Bedside Urine Leukocytes - Negative Esterase Imaging Data Abdominal x-ray: Radiologist's impression: PROCEDURE: XR ABDOMEN MIN 2V INDICATIONS: vomiting recent SBO TECHNIQUE: 2 views of the abdomen were acquired. COMPARISON: [facility], CT, CT ABDOMEN PELVIS W CON, 06/23/2018, 15:03. [facility], CR, XR ACUTE ABDOMEN SERIES, 06/27/2018, 5:53. [facility], CR, XR ABDOMEN 1V, 06/24/2018, 5:49. FINDINGS: Surgical changes and devices: None. Bowel: Dilated loops of small bowel are seen that measure up to 2.8 cm. On the upright image, differential air-fluid levels are seen. Soft tissues: No masses; visualized solid organ contours appear normal in size. No suspicious abdominal calcifications. Bones: No suspicious bony abnormalities. IMPRESSION: These imaging findings are highly suspicious for small bowel obstruction, with dilated loops of small bowel that demonstrate differential air fluid levels. Dictated by: Florentino Manning M.D. on 07/12/2018 at 15:16 MDM Narrative Medical decision making narrative: Dr. Rios in ED to evaluate patient for small bowel obstruction. Happily accepts for admission. NG tube was attempted by nursing in the ED however patient refusing Discharge Plan Departure Patient Disposition: Admitted As Inpatient Clinical Impression: SBO (small bowel obstruction) Discharge Date/Time: 07/12/18 18:40 Interventions: ED Discharge Assessment Last Done: 07/12/18 18:23 Admit Date/Time: 07/12/18 17:15 Admit Provider: Suyapa Rios
--- NOTE | 2018-07-12 15:23 | ED_ITS ---
HPI - Abdominal Pain General Chief Complaint: Abdominal Pain Stated Complaint: STOMACH PAINS Time Seen by Provider: 07/12/18 14:47 Source: patient Mode of arrival: ambulatory Limitations: no limitations History of Present Illness HPI narrative: The patient is a 47-year-old female who presents with nausea and vomiting. She had a small bowel obstruction with a small bowel resection 2017. Last evening she ate some fried chicken and some bad [employer] fries from [employer] fried chicken. Her son ate them as well however she is only with vomiting and stomach pain. She had a bowel movement yesterday and today. She has epigastric pain. No chest pain shortness of breath. She continues to feel nauseous. MD complaint: abdominal pain Pain Consistency: constant Related Data Previous Rx's Medication Instructions Recorded omeprazole 40 mg PO QDAY #30 cap 02/02/18 duloxetine 20 mg capsule,delayed 20 mg PO BID #60 cap 04/26/18 release multivitamin [Multiple Vitamins] 1 tab PO QDAY #0 tab NS 06/24/18 oxycodone-acetaminophen See Label Instructions .ROUTE 06/30/18 .COMPLEX PRN #14 tab Allergies Allergy/AdvReac Type Severity Reaction Status Date / Time No Known Drug Allergies Allergy Verified 06/23/18 16:08 Review of Systems Review of Systems GENERAL: Denies chills, fatigue, malaise, fever, sweats, travel HEENT: Denies sinus pain, ear pain, sore throat, difficulty swallowing, neck pain RESPIRATORY: Denies dyspnea, cough, wheezing, hemoptysis, sputum. CARDIOVASCULAR: Denies chest pain, palpitations, orthopnea, edema GASTROINTESTINAL: See HPI : Denies dysuria, frequency, incontinence, hematuria, urinary retention, flank pain. MUSCULOSKELETAL: Denies weakness, joint pain, or bony pain SKIN: No rash, no erythema, no pruritus NEUROLOGIC: Denies weakness, dizziness, headache, numbness, change in speech, confusion PSYCHIATRIC: No concerning psychosocial issues. 12 point review of systems is negative except for those stated above and [facility] Medical History History of small bowel obstruction (Acute) Adhesion of intestine (Acute) Mixed anxiety depressive disorder (Chronic) Gastric ulcer with hemorrhage (Resolved) Hyperlipidemia (Chronic) Iron deficiency anemia (Suspected) Cobalamin deficiency (Resolved) Anxiety (Chronic Unknown) Depression (Chronic Unknown) GERD (gastroesophageal reflux disease) (Chronic Unknown) Hyperlipemia (Chronic Unknown) Hx of gastric ulcer (Resolved 2016) Small bowel obstruction (Inactive) Surgical History Status post small bowel resection (Acute) History of (Acute) Family History: Reviewed 07/12/18 by Suyapa Rios MD Social History household members: family Smoking Status: Never smoker Exam Initial Vital Signs Initial Vital Signs: Vital Signs Temperature 99.8 F H 07/12/18 14:47 Pulse Rate 104 H 07/12/18 14:47 Respiratory Rate 20 07/12/18 14:47 Blood Pressure 128/95 H 07/12/18 14:47 Pulse Oximetry 100 07/12/18 14:47 GENERAL: [Well-appearing, well-nourished] and in [no acute] distress. HEENT: Head atraumatic,EOMI, pupils reactive, CARDIOVASCULAR: Regular rate and rhythm without murmurs, rubs or gallops. RESPIRATORY: Breath sounds equal bilaterally, no wheezes rales or rhonchi. ABDOMEN: Soft, slightly distended epigastric tenderness no guarding no rebound negative Miller sign EXTREMITIES: Normal range of motion, no clubbing or edema. Neurovascularly intact NEUROLOGICAL: Alert and oriented x4.Normal gait and speech. Cranial nerves II through XII grossly intact. SKIN: Warm, dry, no laceration, no petechiae, no rashes or lesions. Course Orders Ordered: ED Orders 07/13/18 05:19 Basic Metabolic Panel Routine Complete Blood Count AUTO DIFF Routine Diphenhydramine HCl (Benadryl) 25 mg IV Q6HR PRN PRN Reason: Itching Enoxaparin Sodium (Lovenox) 40 mg SUBCUT DAILY LYNDA Dextrose/Sodium Chloride (Dextrose 5%-0.45% Ns) 1,000 mls @ 125 mls/hr IV CONT LYNDA Last Admin: 07/13/18 04:26 Dose: 125 mls/hr Infusion: 07/13/18 04:24 Dose: 0 mls/hr Admin: 07/12/18 19:50 Dose: 125 mls/hr HYDROMORPHONE [employer] (Dilaudid 6 Mg/30 Ml) 6 mg in 30 mls @ 0 mls/hr IV Q8HR LYNDA Last Admin: 07/13/18 06:16 Dose: 0 mls/hr Admin: 07/12/18 22:19 Dose: 0 mls/hr Admin: 07/12/18 19:57 Dose: 0 mls/hr Lorazepam (Ativan) 1 mg IV Q4H PRN PRN Reason: Anxiety Last Admin: 07/13/18 02:55 Dose: 1 mg Admin: 07/12/18 22:13 Dose: 1 mg Naloxone HCl (Narcan) 0.2 mg IV Q2MIN PRN; Protocol PRN Reason: Opiate Reversal Pantoprazole Sodium (Protonix) 40 mg IV BID LYNDA Last Admin: 07/12/18 20:51 Dose: 40 mg Discontinued Medications Hydromorphone HCl (Dilaudid) 1 mg IV Q1H PRN PRN Reason: Pain, Moderate (4-6) Last Admin: 07/12/18 17:29 Dose: 1 mg Hydromorphone HCl (Dilaudid) 0.5 mg IV NOW ONE Stop: 07/12/18 17:43 Last Admin: 07/12/18 20:06 Dose: Sodium Chloride (Normal Saline 0.9%) 1,000 mls @ 150 mls/hr IV CONT [facility] Last Infusion: 07/12/18 18:39 Dose: 150 mls/hr Admin: 07/12/18 15:52 Dose: 150 mls/hr Morphine Sulfate (Morphine) 2 mg IV NOW ONE Stop: 07/12/18 15:15 Last Admin: 07/12/18 15:52 Dose: 2 mg Ondansetron HCl (Zofran) 4 mg IV NOW ONE Stop: 07/12/18 15:15 Last Admin: 07/12/18 15:52 Dose: 4 mg Pantoprazole Sodium (Protonix) 40 mg IV NOW ONE Stop: 07/12/18 15:15 Last Admin: 07/12/18 15:52 Dose: 40 mg Vital Signs - 8 hr 07/13/18 00:00 07/13/18 04:30 Temperature 97.9 F 97.6 F Pulse Rate 86 81 Respiratory Rate 18 12 Blood Pressure 108/60 99/64 Pulse Oximetry 96 97 MDM - Abdominal Pain Medical Records Attestation: I reviewed the patient's medical records. Lab Data Attestation: I reviewed the patient's lab results. Result diagrams: 07/13/18 05:19 07/13/18 05:19 Lab Results 07/12/18 07/12/18 07/12/18 Range/Units 15:50 15:50 15:50 WBC 10.2 (4.5-11.0) X10^3/uL RBC 4.77 (4.0-5.2) X10^6/uL Hgb 12.5 (12.0-16.0) g/dL Hct 38.6 (36-46) % MCV 80.9 (80-100) fL MCH 26.1 (26-34) PG MCHC 32.3 (30-36) % RDW 13.7 (11.6-14.8) % Plt Count 542 H (150-400) X10^3/uL Neut % (Auto) 68.0 (50-75) % Lymph % (Auto) 24.5 L (25-40) % [facility] % (Auto) 5.3 (3-14) % Eos % (Auto) 0.8 L (2-4) % Baso % (Auto) 1.4 (0-2) % Neut # (Auto) 7000 H (3114-1230) /uL Sodium 142 (137-145) mmol/L Potassium 4.2 (3.4-5.1) mmol/L Chloride 103 (98-107) mmol/L Carbon Dioxide 29 (22-32) mmol/L BUN 10 (7-17) mg/dL Creatinine 0.80 (0.52-1.04) mg/dL Estimated GFR > 60.0 (>60) mL/min BUN/Creatinine Ratio 12.5 (6-22) Glucose 99 (70-100) mg/dL Calcium 9.6 (8.4-10.2) mg/dL Total Bilirubin 0.8 (0.2-1.3) mg/dL AST 22 (14-36) IU/L ALT 18 (9-52) IU/L Alkaline Phosphatase 92 (38-126) U/L Total Protein 7.5 (6.3-8.2) g/dL Albumin 4.4 (3.5-5.0) g/dL Globulin 3.1 (1.7-4.1) g/dL Albumin/Globulin Ratio 1.4 (1.0-2.8) Lipase 69 (23-300) U/L Procalcitonin < 0.05 (<0.5) ng/mL Urine RBC (0-5/HPF) Urine WBC (0-5/HPF) Ur Squamous Epith Cells Urine Bacteria (None) Ur Culture Indicated? Micro UA Comment 07/12/18 07/13/18 07/13/18 Range/Units 16:25 05:19 05:19 WBC 6.9 (4.5-11.0) X10^3/uL RBC 4.02 (4.0-5.2) X10^6/uL Hgb 10.5 L (12.0-16.0) g/dL Hct 32.9 L (36-46) % MCV 81.9 (80-100) fL MCH 26.2 (26-34) PG MCHC 32.0 (30-36) % RDW 13.3 (11.6-14.8) % Plt Count 427 H (150-400) X10^3/uL Neut % (Auto) 50.2 (50-75) % Lymph % (Auto) 38.9 (25-40) % [facility] % (Auto) 8.4 (3-14) % Eos % (Auto) 2.2 (2-4) % Baso % (Auto) 0.3 (0-2) % Neut # (Auto) 3500 (5453-8597) /uL Sodium 141 (137-145) mmol/L Potassium 3.7 (3.4-5.1) mmol/L Chloride 104 (98-107) mmol/L Carbon Dioxide 30 (22-32) mmol/L BUN 9 (7-17) mg/dL Creatinine 0.90 (0.52-1.04) mg/dL Estimated GFR > 60.0 (>60) mL/min BUN/Creatinine Ratio 10.0 (6-22) Glucose 115 H (70-100) mg/dL Calcium 8.6 (8.4-10.2) mg/dL Total Bilirubin (0.2-1.3) mg/dL AST (14-36) IU/L ALT (9-52) IU/L Alkaline Phosphatase (38-126) U/L Total Protein (6.3-8.2) g/dL Albumin (3.5-5.0) g/dL Globulin (1.7-4.1) g/dL Albumin/Globulin Ratio (1.0-2.8) Lipase (23-300) U/L Procalcitonin (<0.5) ng/mL Urine RBC 0-1/hpf (0-5/HPF) Urine WBC 0-1/hpf (0-5/HPF) Ur Squamous Epith Cells 10-30 /hpf H Urine Bacteria Occasional (0-1) (None) Ur Culture Indicated? Cult not indicated Micro UA Comment Not Reportable Point of care testing: Urine Dip Bedside Urine Glucose Negative Bedside Urine Bilirubin - Negative Bedside Urine Ketone - Negative Urine Specific [place] 1.010 Bedside Urine Occult Blood +/- Bedside Urine pH 6.0 Bedside Urine Protein - Negative Bedside Urine Urobilinogen - Negative Bedside Urine Nitrite - Negative Bedside Urine Leukocytes - Negative Esterase Imaging Data Abdominal x-ray: Radiologist's impression: PROCEDURE: XR ABDOMEN MIN 2V INDICATIONS: vomiting recent SBO TECHNIQUE: 2 views of the abdomen were acquired. COMPARISON: [facility], CT, CT ABDOMEN PELVIS W CON, 06/23/2018, 15:03. [facility], CR, XR ACUTE ABDOMEN SERIES, 06/27/2018, 5:53. [facility], CR, XR ABDOMEN 1V, 06/24/2018, 5:49. FINDINGS: Surgical changes and devices: None. Bowel: Dilated loops of small bowel are seen that measure up to 2.8 cm. On the upright image, differential air-fluid levels are seen. Soft tissues: No masses; visualized solid organ contours appear normal in size. No suspicious abdominal calcifications. Bones: No suspicious bony abnormalities. IMPRESSION: These imaging findings are highly suspicious for small bowel obstruction, with dilated loops of small bowel that demonstrate differential air fluid levels. Dictated by: Florentino Manning M.D. on 07/12/2018 at 15:16 MDM Narrative Medical decision making narrative: Dr. Rios in ED to evaluate patient for small bowel obstruction. Happily accepts for admission. NG tube was attempted by nursing in the ED however patient refusing Discharge Plan Departure Patient Disposition: Admitted As Inpatient Clinical Impression: SBO (small bowel obstruction) Discharge Date/Time: 07/12/18 18:40 Interventions: ED Discharge Assessment Last Done: 07/12/18 18:23 Admit Date/Time: 07/12/18 17:15 Admit Provider: Suyapa Rios
[2018-07-12] MEDS: SODIUM CHLORIDE 0.9% 1,000 ML 150 ML IV (15:52)
[2018-07-12] MEDS: PANTOPRAZOLE 40 MG VIAL IV ×2 (15:52→20:51)
[2018-07-12] MEDS: MORPHINE 2 MG/ML INJ IV (15:52)
[2018-07-12] MEDS: ONDANSETRON 4 MG/2 ML INJ IV (15:52)
[2018-07-12 15:55] LABS: Add Manual Diff / Slide Review NO; Basophils Percent Auto 1.4 % (0-2); Eosinophils Percent Auto 0.8 % (2-4); Hematocrit 38.6 % (36-46); Hemoglobin 12.5 g/dL (12.0-16.0); Lymphocytes Percent Auto 24.5 % (25-40); Mean Corpuscular HGB Conc 32.3 % (30-36); Mean Corpuscular Hemoglobin 26.1 PG (26-34); Mean Corpuscular Volume 80.9 fL (80-100); Monocytes Percent Auto 5.3 % (3-14); Neutrophils Absolute Auto 7000 /uL (3000-5900); Platelet Count 542 X10^3/uL (150-400); Red Blood Cell Count 4.77 X10^6/uL (4.0-5.2); Red Cell Distribution Width 13.7 % (11.6-14.8); White Blood Cell Count 10.2 X10^3/uL (4.5-11.0)
[2018-07-12 16:08] LABS: Alanine Aminotransferase 18 IU/L (9-52); Albumin 4.4 g/dL (3.5-5.0); Albumin Globulin Ratio 1.4 (1.0-2.8); Alkaline Phosphatase 92 U/L (38-126); Aspartate Aminotransferase 22 IU/L (14-36); BUN Creatinine Ratio 12.5 (6-22); Bilirubin Total 0.8 mg/dL (0.2-1.3); Blood Urea Nitrogen 10 mg/dL (7-17); Calcium 9.6 mg/dL (8.4-10.2); Carbon Dioxide 29 mmol/L (22-32); Chloride 103 mmol/L (98-107); Estimated Glomerular Filt Rate > 60.0 mL/min (>60); Globulin 3.1 g/dL (1.7-4.1); Glucose 99 mg/dL (70-100); HEMOLYSIS < 15 (0-50); Lipase 69 U/L (23-300); Potassium 4.2 mmol/L (3.4-5.1); Sodium 142 mmol/L (137-145); Total Protein 7.5 g/dL (6.3-8.2)
[2018-07-12 16:59] LABS: Bacteria Urine Occasional (0-1); Culture Indicated Urine Cult Not Indicated; RBC Urine 0-1/HPF (0-5/HPF); Squamous Epithelial Cell Urine 10-30 /HPF; WBC Urine 0-1/HPF (0-5/HPF)
--- NOTE | 2018-07-12 17:26 | P.HP_ITS ---
History of Present Illness Date Patient Seen: 07/12/18 Time Patient Seen: 17:20 Chief complaint: STOMACH PAINS Narrative: Very pleasant 47-year-old lady who was discharged from our hospital 12 days ago after 1 week admission for small-bowel obstruction. During that admission, she underwent laparoscopy with extensive lysis of adhesions and small -bowel resection with primary anastomosis. Kalie reports that she tried to follow all instructions carefully. She felt reasonably well until last evening when she woke up sweating profusely. Severe abdominal pain and nausea and vomiting followed. She reports she wanted to call paramedics but was reluctant to wake up anyone else in the house. Patient History Medical History History of small bowel obstruction (Acute) Adhesion of intestine (Acute) Mixed anxiety depressive disorder (Chronic) Gastric ulcer with hemorrhage (Resolved) Hyperlipidemia (Chronic) Iron deficiency anemia (Suspected) Cobalamin deficiency (Resolved) Anxiety (Chronic Unknown) Depression (Chronic Unknown) GERD (gastroesophageal reflux disease) (Chronic Unknown) Hyperlipemia (Chronic Unknown) Hx of gastric ulcer (Resolved 2016) Small bowel obstruction (Inactive) Surgical History Status post small bowel resection (Acute) History of (Acute) Family & Social History Family History: Reviewed 07/12/18 by Suyapa Rios MD Social History: household members family Safety & Behavioral: Feels Safe in Current Yes Environment Been Physically Hurt or No Threatened By a Person Tobacco & Substance use: Smoking Status Never smoker alcohol intake frequency 0-2 drinks per day Substance Use Type does not use Meds Home Medications Medication Instructions Recorded Confirmed Type omeprazole 40 mg PO QDAY #30 cap 02/02/18 07/06/18 Rx duloxetine 20 mg capsule,delayed 20 mg PO BID #60 cap 04/26/18 07/06/18 Rx release multivitamin [Multiple Vitamins] 1 tab PO QDAY #0 tab NS 06/24/18 07/06/18 Rx gabapentin 300 mg PO BID #14 cap 06/30/18 07/06/18 Rx ibuprofen 600 mg PO TID PRN #20 tab 06/30/18 07/06/18 Rx oxycodone-acetaminophen See Label Instructions .ROUTE 08/17/18 08/23/18 Rx .COMPLEX PRN #14 tab Allergies Allergy/AdvReac Type Severity Reaction Status Date / Time No Known Drug Allergies Allergy Verified 06/23/18 16:08 Review of Systems Review of Systems All systems reviewed & are unremarkable except as noted in HPI and below Exam Vital Signs (past 8 hours): - 07/12/18 14:47 07/12/18 16:30 Temperature 99.8 F H Pulse Rate 104 H 85 Respiratory Rate 20 21 Blood Pressure 128/95 H Blood Pressure [Left Arm] 113/81 H Pulse Oximetry 100 99 Oxygen Delivery Method Room Air Narrative Exam Narrative: Very pleasant and fit appearing lady. She is obviously uncomfortable. HEENT: Normocephalic and atraumatic, pupils are equal round reactive to light accommodation with anicteric sclera. Lungs: Clear bilaterally Heart: Regular rate and rhythm Abdomen: Soft, tender to palpation just superior to the umbilicus. Diffusely very mildly tender. Multiple healed incisions without erythema. Hypoactive bowel sounds. Extremities: Warm and well perfused without edema. Objective Labs Result Diagrams: 07/12/18 15:50 07/12/18 15:50 Labs: Laboratory Results - last 24 hr 07/12/18 07/12/18 07/12/18 15:50 15:50 16:25 WBC 10.2 RBC 4.77 Hgb 12.5 Hct 38.6 MCV 80.9 MCH 26.1 MCHC 32.3 RDW 13.7 Plt Count 542 H Neut % (Auto) 68.0 Lymph % (Auto) 24.5 L [place] % (Auto) 5.3 Eos % (Auto) 0.8 L Baso % (Auto) 1.4 Neut # (Auto) 7000 H Sodium 142 Potassium 4.2 Chloride 103 Carbon Dioxide 29 BUN 10 Creatinine 0.80 Estimated GFR > 60.0 BUN/Creatinine Ratio 12.5 Glucose 99 Calcium 9.6 Total Bilirubin 0.8 AST 22 ALT 18 Alkaline Phosphatase 92 Total Protein 7.5 Albumin 4.4 Globulin 3.1 Albumin/Globulin Ratio 1.4 Lipase 69 Urine RBC 0-1/hpf Urine WBC 0-1/hpf Ur Squamous Epith Cells 10-30 /hpf H Urine Bacteria Occasional (0-1) Ur Culture Indicated? Cult not indicated Micro UA Comment Not Reportable Assessment & Plan Plan: Assessment/Plan Narrative: Daisy lady 18 days status post laparoscopic lysis of adhesions and bowel resection for small bowel obstruction secondary to adhesions. Her symptoms are little bit concerning for abscess formation with the associated sweating and pain. She will be given pain medicine and NG tube will be placed. Procalcitonin to be drawn this evening. If it is normal, we will proceed with watchful waiting. If it is elevated, CT scan.
[2018-07-12] MEDS: HYDROMORPHONE 1 MG INJ IV (17:29)
--- NOTE | 2018-07-12 18:05 | PC.NURSE ---
Patient refuses NG; Patient will only allow NG inserting if patient is knock out. Dr. Hodges noticed;
--- NOTE | 2018-07-12 19:28 | PC.NURSE ---
Admit Note: Patient admitted to Acute Care this evening at 1830. Patient alert and oriented times 3. Patient states that last night she wasn't feeling well after going to [facility]. Patient abdomen firm, hypoactive bowel sounds.VSS, patient NPO. Patient refuses for NGT to be placed while awake.
[2018-07-12] MEDS: DEXTROSE 5%-0.45% NS 1,000 ML 125 ML IV (19:50)
[2018-07-12] MEDS: HYDROMORPHONE PCA 6 MG/30 ML PCA.VIAL IV ×2 (19:57→22:19)
[2018-07-12 19:59] LABS: Procalcitonin < 0.05 ng/mL (<0.5)
[2018-07-12] MEDS: LORazepam 2 MG/ML SYRINGE 1 MG IV (22:13)
[2018-07-13] VITALS (8 sets, daily range): BP systolic 97–131; BP diastolic 60–81; PULSE 80–101; RESP 12–18; TEMP 36.1–36.8; O2SAT 96–99
[2018-07-13] MEDS: LORazepam 2 MG/ML SYRINGE 1 MG IV ×2 (02:55→18:10)
[2018-07-13] MEDS: DEXTROSE 5%-0.45% NS 1,000 ML 125 ML IV ×3 (04:26→19:46)
[2018-07-13 05:36] LABS: Add Manual Diff / Slide Review NO; Basophils Percent Auto 0.3 % (0-2); Eosinophils Percent Auto 2.2 % (2-4); Hematocrit 32.9 % (36-46); Hemoglobin 10.5 g/dL (12.0-16.0); Lymphocytes Percent Auto 38.9 % (25-40); Mean Corpuscular Hemoglobin 26.2 PG (26-34); Mean Corpuscular Volume 81.9 fL (80-100); Monocytes Percent Auto 8.4 % (3-14); Neutrophils Absolute Auto 3500 /uL (3000-5900); Neutrophils Percent Auto 50.2 % (50-75); Platelet Count 427 X10^3/uL (150-400); Red Blood Cell Count 4.02 X10^6/uL (4.0-5.2); Red Cell Distribution Width 13.3 % (11.6-14.8); White Blood Cell Count 6.9 X10^3/uL (4.5-11.0)
[2018-07-13 05:44] LABS: Blood Urea Nitrogen 9 mg/dL (7-17); Calcium 8.6 mg/dL (8.4-10.2); Carbon Dioxide 30 mmol/L (22-32); Chloride 104 mmol/L (98-107); Estimated Glomerular Filt Rate > 60.0 mL/min (>60); Glucose 115 mg/dL (70-100); HEMOLYSIS < 15 (0-50); Potassium 3.7 mmol/L (3.4-5.1); Sodium 141 mmol/L (137-145)
[2018-07-13] MEDS: HYDROMORPHONE PCA 6 MG/30 ML PCA.VIAL IV ×3 (06:16→22:00)
--- NOTE | 2018-07-13 07:49 | PC.NURSE ---
Assumed care o pt from outgoing shift at 2300 -829,. Pt awake. compliant with nursing assessment. pt npo and given mouth moisturizer. Pt uses call light. LINEN WORKER on and pt uses states it takes the edge off the pain. Pt tolerating fluids. belongings and call light within reach. pt son in room through the night and slept in window bed, Pt sated My son has asperger's and that i take care of him pt given blankets and son as well. Pt denies further needs at this time. will continue to monitor. encouraged LINEN WORKER use. 0300- pt stated she couldn't fall asleep, pt minorly anxious and given ativan per JAN. will continue to monitor. 0500- Pt up to void and pt sated she felt dizzy but. Pt sat down. and said she felt fine after that. explained possibilities why she had this feeling and pt stated, OK that makes sense and I feel better now. will continue to monitor, bed alarm on. belongings and call light within reach.
[2018-07-13] MEDS: ENOXAPARIN 40 MG/0.4 ML SYRINGE SUBCUT (08:58)
[2018-07-13] MEDS: PANTOPRAZOLE 40 MG VIAL IV ×2 (08:58→19:59)
--- NOTE | 2018-07-13 12:42 | PC.NURSE ---
1230 Pt c/o nausea, call out to Dr Rios, Pt cont to refuse an NG tube. verbal orders for Geeta now written.
[2018-07-13] MEDS: ONDANSETRON 4 MG/2 ML INJ IV ×2 (12:46→18:02)
--- NOTE | 2018-07-13 14:19 | PC.NURSE ---
denies nausea at this time. Dilaudid REST ROOM MATRON Pt used 2.3. denies pain.
--- NOTE | 2018-07-13 14:37 | CM.DANOTE ---
Addendum entered by Dinorah Figueroa LPN 07/13/18 14:57: [place] by [facility] [place] [employer] [place]. Pt's PCP Monica Simons is no longer at [facility] clinic. Is unclear at this point if she has been assigned to another provider. Original Note: Discharge Planning/Care Management DCP: assessment: case received, EMR reviewed and met this morning, 829 with pt. Introduced self and role. Pt's adult autistic son Eliel sleeping on window seat during brief discussion. Pt is a 47 year old pt who admitted to care of Dr. Rios and [facility] team. READMIT: noted. Full dx and POC are in process. Will be following to assist with d/c issues and options as these are identified. CM Discharge Assessment Start: 07/13/18 14:29 Freq: Status: Active Protocol: Document 07/13/18 14:30 ITV (Rec: 07/13/18 14:36 ITV [email or web address]) Discharge Planning Assessment Advance Directives? No History Provided By Patient Medical Record Discharge Planning/Care Management CM Discharge Assessment Start: 07/13/18 14:29 Freq: Status: Active Protocol: Document 07/13/18 14:30 ITV (Rec: 07/13/18 14:36 ITV [email or web address]) Discharge Planning Assessment Advance Directives? No History Provided By Patient Medical Record Has Patient been admitted in last 30 Yes days? Comment Here for abdominal surgery/ laparoscopy/ LEO and SB resection with a d/c to home after 7 days on 06/30. Readmits with stomach pain, n/ v and sudden severe diaphoresis 07/12 in evening. Prior Living Arrangements House Household Members son Comment pt lives in [place] lodging house run by her employer [employer] [employer]. Her adult autistic son Eliel lives with her and is rooming in as per prior admission. 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 . Whiteboard Updated in Patient Room with Yes name and ext. 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 . Whiteboard Updated in Patient Room with Yes name and ext. # of Cartoon Designer Review Status In Process Next Review Type Continued Stay Review
--- NOTE | 2018-07-13 15:21 | P.PN_ITS ---
Subjective Date Patient Seen: 07/13/18 Time Patient Seen: 15:19 Interval history: Kalie reports that she is feeling better today and even a little bit hungry. She says she is not having any cramping now. She also reports she passed a little flatus. Denies nausea currently and admits she feels a little bit hungry. Exam Vital Signs (past 8 hours): - 07/13/18 07:55 07/13/18 12:00 Temperature 97.7 F 97.9 F Pulse Rate 80 84 Respiratory Rate 16 16 Blood Pressure 99/63 97/65 Pulse Oximetry 99 98 Oxygen Delivery Method Room Air Oxygen Flow Rate 0 Narrative Exam Narrative: Abdomen is soft and nondistended. Very mild global tenderness to palpation. Active bowel sounds. Objective Labs Result Diagrams: 07/13/18 05:19 07/13/18 05:19 Labs: Laboratory Results - last 24 hr 07/12/18 07/12/18 07/12/18 15:50 15:50 15:50 WBC 10.2 RBC 4.77 Hgb 12.5 Hct 38.6 MCV 80.9 MCH 26.1 MCHC 32.3 RDW 13.7 Plt Count 542 H Neut % (Auto) 68.0 Lymph % (Auto) 24.5 L [place] % (Auto) 5.3 Eos % (Auto) 0.8 L Baso % (Auto) 1.4 Neut # (Auto) 7000 H Sodium 142 Potassium 4.2 Chloride 103 Carbon Dioxide 29 BUN 10 Creatinine 0.80 Estimated GFR > 60.0 BUN/Creatinine Ratio 12.5 Glucose 99 Calcium 9.6 Total Bilirubin 0.8 AST 22 ALT 18 Alkaline Phosphatase 92 Total Protein 7.5 Albumin 4.4 Globulin 3.1 Albumin/Globulin Ratio 1.4 Lipase 69 Procalcitonin < 0.05 Urine RBC Urine WBC Ur Squamous Epith Cells Urine Bacteria Ur Culture Indicated? Micro UA Comment 07/12/18 07/13/18 07/13/18 16:25 05:19 05:19 WBC 6.9 RBC 4.02 Hgb 10.5 L Hct 32.9 L MCV 81.9 MCH 26.2 MCHC 32.0 RDW 13.3 Plt Count 427 H Neut % (Auto) 50.2 Lymph % (Auto) 38.9 [place] % (Auto) 8.4 Eos % (Auto) 2.2 Baso % (Auto) 0.3 Neut # (Auto) 3500 Sodium 141 Potassium 3.7 Chloride 104 Carbon Dioxide 30 BUN 9 Creatinine 0.90 Estimated GFR > 60.0 BUN/Creatinine Ratio 10.0 Glucose 115 H Calcium 8.6 Total Bilirubin AST ALT Alkaline Phosphatase Total Protein Albumin Globulin Albumin/Globulin Ratio Lipase Procalcitonin Urine RBC 0-1/hpf Urine WBC 0-1/hpf Ur Squamous Epith Cells 10-30 /hpf H Urine Bacteria Occasional (0-1) Ur Culture Indicated? Cult not indicated Micro UA Comment Not Reportable Assessment & Plan Plan: Assessment/Plan Narrative: Will advance to a clear liquid diet. I will restart her duloxetine because we can expect her to start experiencing serotonin syndrome in the next couple of hours if she is not already having some of it. That was just a simple water is the only med that I will restart. Start clear liquids, but slowly. Recheck labs in the morning. Quality VTE Deep Vein Thrombosis/Pulmonary Embolism Present on Admission: No
[2018-07-13] MEDS: DULOXETINE 20 MG CAPSULE PO ×2 (17:02→19:59)
[2018-07-13] MEDS: SODIUM CHLORIDE 0.9% FLUSH 10 ML IV (19:59)
[2018-07-14] MEDS: LORazepam 2 MG/ML SYRINGE 1 MG IV ×2 (00:21→04:24)
[2018-07-14 03:15] VITALS: BP 138/78; PULSE 94; RESP 18; TEMP 36.5; O2SAT 99
[2018-07-14] MEDS: DEXTROSE 5%-0.45% NS 1,000 ML 125 ML IV ×3 (04:10→21:12)
[2018-07-14] MEDS: HYDROMORPHONE PCA 6 MG/30 ML PCA.VIAL IV ×3 (05:50→22:03)
[2018-07-14 08:49] VITALS: BP 117/71; PULSE 95; RESP 16; TEMP 36.6; O2SAT 100
[2018-07-14] MEDS: PANTOPRAZOLE 40 MG VIAL IV ×2 (09:14→20:24)
[2018-07-14] MEDS: DULOXETINE 20 MG CAPSULE PO ×2 (09:14→20:24)
[2018-07-14] MEDS: ENOXAPARIN 40 MG/0.4 ML SYRINGE SUBCUT (09:14)
--- NOTE | 2018-07-14 11:29 | PC.NURSE ---
Kalie rates her abd. pain as 8/10 and is using her Dilaudid BED SPRING MAKER. Abd. soft, slightly distended, with healed scope sites. She states she passed gas Last night, but not currently. Kalie states she has nausea, but able to eat 75-100% of her clear liquid diet. Mainly she stays in bed except to use bathroom. Will continue to enc. her to amb. in hallways. VSS.
--- NOTE | 2018-07-14 11:37 | PM.PN.1 ---
Subjective Date Patient Seen: 07/14/18 Time Patient Seen: 11:37 Interval history: Patient is sleeping but arousable. Her son is at her bedside. She reports that she is not really uncomfortable now just extremely sleepy. She reports she has not slept in several nights and she is just so tired now she can ?hardly wake up?. She admits that she has not been walking since she has been in the hospital. She reports that she has continued to pass flatus but has not had a bowel movement. She continues to tolerate clear liquids. Exam Vital Signs (past 8 hours): - 07/14/18 08:49 Temperature 97.8 F Pulse Rate 95 H Respiratory Rate 16 Blood Pressure 117/71 Pulse Oximetry 100 Oxygen Delivery Method Room Air Oxygen Flow Rate 0 Narrative Exam Narrative: Lungs are clear to auscultation bilaterally. Heart is regular rate and rhythm Abdomen is soft and not particularly tender to palpation. Hypoactive bowel sounds. Extremities are warm and well perfused Objective Labs Result Diagrams: 07/13/18 05:19 07/13/18 05:19 Assessment & Plan Plan: Assessment/Plan Narrative: Laboratory values are encouraging and there are certainly no evidence of an acute surgical abdomen. I discussed placing an NG tube so that we could perform an upper GI and small-bowel follow-through and Kalie is vehemently opposed to this idea. She has agreed to walk in the halls twice today. We will continue clear liquids 1 more day and stimulate bowel function below with a Dulcolax suppository. Continue IV fluids and pain medicine as needed but try to minimize it. Duloxetine was resumed yesterday and hopefully by this afternoon any symptoms relatable to serotonin syndrome should improve significantly. Quality VTE Deep Vein Thrombosis/Pulmonary Embolism Present on Admission: No
[2018-07-14] MEDS: BISACODYL 10 MG SUPP PR (13:12)
[2018-07-14 13:42] VITALS: BP 112/75; PULSE 91; RESP 16; TEMP 36.7; O2SAT 99
--- NOTE | 2018-07-14 13:56 | PC.NURSE ---
Kalie was able to ambulate halls after lunch. Dulcolax suppository yielded only the waxy suppository substance expelled. Dil EDGING CATCHER total this shift= 2.8 mg. Kalie states My stomach still hurts.
[2018-07-14 16:18] VITALS: BP 110/84; PULSE 98; RESP 18; TEMP 36.3; O2SAT 98
[2018-07-14 19:17] VITALS: BP 122/80; PULSE 96; RESP 18; TEMP 36.8; O2SAT 99
[2018-07-14] MEDS: diphenhydrAMINE 50 MG/ML VIAL 25 MG IV (19:39)
[2018-07-14] MEDS: SODIUM CHLORIDE 0.9% FLUSH 10 ML IV (20:24)
--- NOTE | 2018-07-14 20:46 | PC.NURSE ---
SHIFT NOTE Ox3, pt states bad having a bad day. c/o 6/10 abdominal pain despite dilaudid COURTESY VAN DRIVER use. encouraged pt to ambulate in hallways to help gut motility, pt initially reluctant saying she was dizzy and previous staff had to catcher her when she went for a walk, but eventually agreeable to do so. pt up to bathroom, expectorated 1 mucoid BM? possibly left over suppository from day shift as pt states not feeling having passed anything. c/o itchiness, medicated with PRN benadryl. son at bedside. call light within reach.
[2018-07-14 23:56] VITALS: BP 120/75; PULSE 89; RESP 18; TEMP 36.7; O2SAT 98
--- NOTE | 2018-07-15 | DI.CT.S_ITS ---
PROCEDURE: CT ABDOMEN PELVIS W CON INDICATIONS: Recurrent small bowel obstruction TECHNIQUE: After the administration of oral and intravenous contrast, 5 mm thick sections acquired from the diaphragms to the symphysis. 5 mm thick coronal and sagittal reformats were performed. For radiation dose reduction, the following was used: automated exposure control, adjustment of mA and/or kV according to patient size. COMPARISON: [facility], CT, CT ABDOMEN PELVIS W CON, 06/23/2018, 15:03. FINDINGS: Image quality: Excellent. ABDOMEN: Lung bases: There are small low density bilateral pleural effusions and mild compressive atelectasis. Solid organs: Liver is normal in size and overall enhancement where visualized. A focal hypervascular lesion is present near the gallbladder fossa suggesting a hepatic hemangioma, but this is incompletely characterized. Gallbladder is unremarkable. Biliary system is non-dilated. Pancreas enhances normally. Spleen is normal in size and enhancement. No adrenal nodules. Kidneys are normal in size and enhancement, without hydronephrosis. Peritoneum and bowel: Stomach, small bowel, and colon loops are normal in overall caliber and wall thickness. A focal dilated loop of small bowel is present within the right hemipelvis. This has a similar appearance to the prior study; however, on the current study, no tapered transition point is visualized between this dilated loop in the decompressed small bowel surrounding this finding. No mucosal thickening or pericolonic fat stranding. The appendix is thin walled and gas filled. There are scattered sigmoid diverticula. No evidence for diverticulitis. There is trace low-density free pelvic fluid which is new when compared with the study dated 06/23/18. Nodes and vessels: No retroperitoneal or mesenteric adenopathy. Aorta and inferior vena cava are normal in caliber. Miscellaneous: No ventral hernias. PELVIS: Genitourinary: Bladder wall thickness is normal. Miscellaneous: No inguinal hernias or adenopathy. Bones: No suspicious bony lesions. No vertebral body compression fractures. IMPRESSION: 1. Probable focal dilated loop of small bowel within the right hemipelvis without smooth transition point either upstream or downstream suspicious for a closed loop obstruction. Given the lack of upstream bowel obstruction, differential considerations include enteric cyst or adnexal cyst. 2. No other bowel dilatation, pneumatosis, or pneumoperitoneum. 3. Normal appendix. These findings were discussed with Dr. Rios at 11:57 AM on 07/15/18. 4. Small low density pleural effusions and mild compressive atelectasis. Dictated by: Carmelina Ron M.D. on 07/15/2018 at 11:47 Approved by: Carmelina Ron M.D. on 07/15/2018 at 11:58
--- NOTE | 2018-07-15 | DI.RAD.S_ITS ---
PROCEDURE: XR ABDOMEN 1V INDICATIONS: has contrast passed into colon? TECHNIQUE: One view of the abdomen acquired. COMPARISON: None. FINDINGS: Surgical changes and devices: None. Bowel: Oral contrast is visualized within the ascending and the right aspect of the transverse colon. There is moderate gaseous distention of the small bowel and mild gaseous distention of the colon. Soft tissues: No suspicious abdominal calcifications. Visualized solid organ contours appear normal in size. Contrast is visualized within the bladder. Bones: No suspicious bony lesions. IMPRESSION: Oral contrast within the ascending and proximal portion of the transverse colon. Dictated by: Carmelina Ron M.D. on 07/15/2018 at 14:23 Approved by: Carmelina Ron M.D. on 07/15/2018 at 14:24
[2018-07-15] MEDS: diphenhydrAMINE 50 MG/ML VIAL 25 MG IV ×4 (01:03→21:14)
[2018-07-15 04:07] VITALS: BP 125/74; PULSE 91; RESP 18; TEMP 36.7; O2SAT 99
[2018-07-15] MEDS: DEXTROSE 5%-0.45% NS 1,000 ML 125 ML IV ×3 (05:26→22:19)
[2018-07-15] MEDS: HYDROMORPHONE PCA 6 MG/30 ML PCA.VIAL IV ×3 (05:27→21:14)
[2018-07-15 05:53] LABS: Add Manual Diff / Slide Review NO; Basophils Percent Auto 0.3 % (0-2); Eosinophils Percent Auto 2.4 % (2-4); Hematocrit 31.6 % (36-46); Hemoglobin 10.1 g/dL (12.0-16.0); Lymphocytes Percent Auto 46.2 % (25-40); Mean Corpuscular HGB Conc 31.9 % (30-36); Mean Corpuscular Hemoglobin 26.2 PG (26-34); Mean Corpuscular Volume 82.2 fL (80-100); Monocytes Percent Auto 8.7 % (3-14); Neutrophils Absolute Auto 2000 /uL (3000-5900); Neutrophils Percent Auto 42.4 % (50-75); Platelet Count 393 X10^3/uL (150-400); Red Blood Cell Count 3.85 X10^6/uL (4.0-5.2); Red Cell Distribution Width 13.1 % (11.6-14.8); White Blood Cell Count 4.6 X10^3/uL (4.5-11.0)
[2018-07-15 06:04] LABS: Alanine Aminotransferase 17 IU/L (9-52); Albumin 3.3 g/dL (3.5-5.0); Albumin Globulin Ratio 1.2 (1.0-2.8); Alkaline Phosphatase 60 U/L (38-126); Aspartate Aminotransferase 15 IU/L (14-36); BUN Creatinine Ratio 2.9 (6-22); Bilirubin Total 0.4 mg/dL (0.2-1.3); Blood Urea Nitrogen < 2 mg/dL (7-17); Calcium 8.5 mg/dL (8.4-10.2); Carbon Dioxide 35 mmol/L (22-32); Chloride 102 mmol/L (98-107); Estimated Glomerular Filt Rate > 60.0 mL/min (>60); Globulin 2.7 g/dL (1.7-4.1); Glucose 94 mg/dL (70-100); HEMOLYSIS < 15 (0-50); Potassium 3.6 mmol/L (3.4-5.1); Sodium 144 mmol/L (137-145)
--- NOTE | 2018-07-15 07:08 | PC.NURSE ---
Requested Benadryl twice this shift for itching. 25 mg. IVP X2 doses admin. Denies any nausea now, but C/O dizziness when she get up OOB. Will report to day R.N. & monitor.
[2018-07-15 09:30] VITALS: BP 132/82; PULSE 96; RESP 15; TEMP 36.6; O2SAT 99
[2018-07-15] MEDS: PANTOPRAZOLE 40 MG VIAL IV ×2 (09:41→21:14)
[2018-07-15] MEDS: ENOXAPARIN 40 MG/0.4 ML SYRINGE SUBCUT (09:41)
[2018-07-15] MEDS: DULOXETINE 20 MG CAPSULE PO ×2 (09:41→21:14)
[2018-07-15 13:05] VITALS: BP 110/76; PULSE 101; RESP 16; TEMP 36.7; O2SAT 98
[2018-07-15 16:05] VITALS: BP 124/80; PULSE 90; RESP 16; TEMP 36.6; O2SAT 97
--- NOTE | 2018-07-15 16:43 | P.PN_ITS ---
Subjective Date Patient Seen: 07/15/18 Time Patient Seen: 16:42 Interval history: Kalie looks brighter today and reports that she is feeling better. She says that she is passing gas but has not had a bowel movement. She has been tolerating clear liquids. CT scan today and plain film follow-up reveals contrast going into the ascending colon. Exam Vital Signs (past 8 hours): - 07/15/18 09:30 07/15/18 13:05 Temperature 97.8 F 98.0 F Pulse Rate 96 H 101 H Respiratory Rate 15 16 Blood Pressure 132/82 110/76 Pulse Oximetry 99 98 Oxygen Delivery Method Room Air Oxygen Flow Rate 0 Narrative Exam Narrative: Abdomen is soft, minimal tenderness to palpation, active bowel sounds. Objective Labs Result Diagrams: 07/15/18 05:42 07/15/18 05:42 Labs: Laboratory Results - last 24 hr 07/15/18 07/15/18 05:42 05:42 WBC 4.6 RBC 3.85 L Hgb 10.1 L Hct 31.6 L MCV 82.2 MCH 26.2 MCHC 31.9 RDW 13.1 Plt Count 393 Neut % (Auto) 42.4 L Lymph % (Auto) 46.2 H [place] % (Auto) 8.7 Eos % (Auto) 2.4 Baso % (Auto) 0.3 Neut # (Auto) 2000 L Sodium 144 Potassium 3.6 Chloride 102 Carbon Dioxide 35 H BUN < 2 L Creatinine 0.70 Estimated GFR > 60.0 BUN/Creatinine Ratio 2.9 L Glucose 94 Calcium 8.5 Total Bilirubin 0.4 AST 15 ALT 17 Alkaline Phosphatase 60 Total Protein 6.0 L Albumin 3.3 L Globulin 2.7 Albumin/Globulin Ratio 1.2 Assessment & Plan Plan: Assessment/Plan Narrative: Continue clear liquids tonight and plan to advance to soft mechanical diet in the morning. Walk in the halls at least 2 times before bedtime. This ileus/ bowel obstruction seems to be resolving but we are not completely out of the ocampo. We will also try to add low-dose Reglan. Quality VTE Deep Vein Thrombosis/Pulmonary Embolism Present on Admission: No
[2018-07-15 21:05] VITALS: BP 122/79; PULSE 96; RESP 16; TEMP 36.8; O2SAT 97
[2018-07-16] MEDS: LORazepam 2 MG/ML SYRINGE 1 MG IV
[2018-07-16] MEDS: METOCLOPRAMIDE 10 MG/2 ML INJ 5 MG IV ×2 (00:04→12:00)
[2018-07-16 00:08] VITALS: BP 115/85; PULSE 98; RESP 20; TEMP 36.6; O2SAT 97
--- NOTE | 2018-07-16 00:13 | PC.NURSE ---
Reports dizziness when up out of bed. Will ring when needing to usr BR or ambulate for safety.
[2018-07-16 06:16] VITALS: BP 101/61; PULSE 106; RESP 18; TEMP 36.5; O2SAT 95
[2018-07-16] MEDS: DEXTROSE 5%-0.45% NS 1,000 ML 125 ML IV ×3 (06:33→22:38)
[2018-07-16] MEDS: HYDROMORPHONE PCA 6 MG/30 ML PCA.VIAL IV ×3 (06:34→20:52)
[2018-07-16] MEDS: PANTOPRAZOLE 40 MG VIAL IV ×2 (08:57→20:53)
[2018-07-16] MEDS: DULOXETINE 20 MG CAPSULE PO ×2 (08:57→20:53)
[2018-07-16] MEDS: ENOXAPARIN 40 MG/0.4 ML SYRINGE SUBCUT (08:57)
[2018-07-16 09:18] VITALS: BP 149/96; PULSE 102; TEMP 36.8; O2SAT 100
[2018-07-16 12:03] VITALS: BP 111/74; PULSE 100; RESP 15; TEMP 36.6; O2SAT 99
[2018-07-16] MEDS: SODIUM CHLORIDE 0.9% FLUSH 10 ML IV ×3 (12:03→20:53)
[2018-07-16] MEDS: diphenhydrAMINE 50 MG/ML VIAL 25 MG IV (12:03)
--- NOTE | 2018-07-16 14:41 | CM.DPC ---
DCP Cont: Met with patient, pleasant. Alert and oriented. Son in room and pleasant as well. Introduced self and role, put name on her board. Stated she is feeling better. Patient lives at [facility] with her son. Patient is hoping to return there. P: DCP to continue to assess. Patient's goal is to return to [facility] when stable. Shari Jeong RN/Telegraph Lineman
[2018-07-16 15:45] VITALS: BP 133/77; PULSE 93; RESP 16; TEMP 36.9; O2SAT 98
[2018-07-16] MEDS: ONDANSETRON 4 MG/2 ML INJ IV (17:21)
--- NOTE | 2018-07-16 17:48 | PC.NURSE ---
Addendum entered by Carrie Lin R.N. 07/16/18 23:40: Pt ate another pudding and denied nausea after. new IV started by this typewriter tester. will continue to monitor. fluids switched old IV removed. Original Note: Assumed care of pt from outgoing shift [id number]. Pt asleep in bed/ drowsy but states she is really tired. pt did go for a walk today and thinks she will go on one after dinner. Pt advanced to mechanically soft diet and had scrambled eggs, pudding for dinner. Pt tolerated poorly and felt nauseous but did not throw up, given zofran and stated she was better. pt has IV Dilaudid biological technical officer running. tolerating, fluids as well. pt sba with IV pole, son in room, pt ambulated steady gait. will continue to monitor pt fro safety. belongings and call light within reach.
--- NOTE | 2018-07-16 18:42 | PM.PN.1 ---
Subjective Date Patient Seen: 07/16/18 Time Patient Seen: 18:42 Interval history: Kalie is feeling much better today. She says she has continued to pass flatus but has not had a bowel movement. She denies any nausea today. Exam Vital Signs (past 8 hours): - 07/16/18 12:03 07/16/18 15:45 Temperature 97.9 F 98.4 F Pulse Rate 100 H 93 H Respiratory Rate 15 16 Blood Pressure 111/74 133/77 Pulse Oximetry 99 98 Oxygen Delivery Method Room Air Oxygen Flow Rate 0 Narrative Exam Narrative: Lungs: clear bilaterally, no wheezing or rales Abd: soft, no tenderness elicited on palpation, incisions are clean and dry and healing Ext: warm and well perfused Objective Labs Result Diagrams: 07/15/18 05:42 07/15/18 05:42 Assessment & Plan Plan: Assessment/Plan Narrative: Improving gradually and currently without signs or symptoms of obstruction. Will advance to soft mechanical diet and continue reglan. Encourage ambulation Quality VTE Deep Vein Thrombosis/Pulmonary Embolism Present on Admission: No
[2018-07-16 19:00] VITALS: BP 115/78; PULSE 99; RESP 16; TEMP 36.5; O2SAT 97
[2018-07-17] VITALS (7 sets, daily range): BP systolic 82–119; BP diastolic 43–77; PULSE 91–97; RESP 16–20; TEMP 36.4–37.2; O2SAT 94–99
[2018-07-17] MEDS: METOCLOPRAMIDE 10 MG/2 ML INJ 5 MG IV ×2 (00:29→11:24)
[2018-07-17] MEDS: diphenhydrAMINE 50 MG/ML VIAL 25 MG IV (00:32)
[2018-07-17] MEDS: HYDROMORPHONE PCA 6 MG/30 ML PCA.VIAL IV ×2 (06:11→14:04)
[2018-07-17] MEDS: DEXTROSE 5%-0.45% NS 1,000 ML 125 ML IV ×2 (06:52→14:48)
[2018-07-17] MEDS: DULOXETINE 20 MG CAPSULE PO ×2 (08:41→21:24)
[2018-07-17] MEDS: PANTOPRAZOLE 40 MG VIAL IV ×2 (08:41→21:23)
[2018-07-17] MEDS: ENOXAPARIN 40 MG/0.4 ML SYRINGE SUBCUT (08:41)
--- NOTE | 2018-07-17 09:13 | PC.NURSE ---
Patient awake and talkative this morning. Patient is frequently encouraged to walk in halls, declines at this time. Tolerating soft mechanical diet as ordered. Denies pain, dilaudid CLEAN UP SUPERVISOR remains in place. Passing gas, no BM, denies N/V. BEd alarm on for safety, with call light within reach.
[2018-07-17] MEDS: BISACODYL 10 MG SUPP PR (12:50)
[2018-07-17] MEDS: LACTULOSE 20 GM/30 ML SOLUTION PO (12:50)
--- NOTE | 2018-07-17 16:44 | PM.PNPO.1 ---
Subjective Date Patient Seen: 07/17/18 Time Patient Seen: 16:44 Interval history: Patient just had a bowel movement passing flatus after a suppository. She is tolerating soft mechanical diet. Exam Vital Signs (past 8 hours): - 07/17/18 08:46 07/17/18 11:39 07/17/18 15:32 Temperature 98.7 F 98.3 F Pulse Rate 91 H 92 H 92 H Respiratory Rate 18 16 Blood Pressure 115/77 110/67 108/73 Pulse Oximetry 94 96 Oxygen Delivery Method Room Air Oxygen Flow Rate 0 Narrative Exam Narrative: Operative no apparent distress. Lungs are clear to auscultation. No rales rhonchi. Heart regular rate and rhythm without murmur gallop. Abdomen is soft nontender without mass. Objective Labs Result Diagrams: 07/15/18 05:42 07/15/18 05:42 Assessment & Plan Post-op Postoperative Postoperative status narrative: I suspect that the collection in her pelvis is not intra intestinal but perhaps just free pelvic fluid that has become loculated. A flat plate of the abdomen after the CT showed that there was no abdominal distension and the contrasted clearly gone into the colon suggesting there is no obstruction and therefore no closed loop which would be completely obstructing most likely. Postoperative plan narrative: Will stop her IV fluids and get her on the road to discharge. Can probably go home tomorrow morning. Time Spent With Patient less than 15 minutes Quality VTE Deep Vein Thrombosis/Pulmonary Embolism Present on Admission: No
[2018-07-17] MEDS: ONDANSETRON 4 MG/2 ML INJ IV (17:41)
[2018-07-17] MEDS: HYDROCODONE/ACET 5/325 TABLET 2 TAB PO ×2 (17:59→21:30)
--- NOTE | 2018-07-17 18:02 | PC.NURSE ---
Addendum entered by Malia Escobedo R.N. 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 Original Note: 1745- Pt reports pain 6-7/10 to ABD, and nausea, medicated with zofran 4mg IVP and vicodin 2 tabs PO. Indep to BRP to void.
[2018-07-17] MEDS: LORazepam 2 MG/ML SYRINGE 1 MG IV (21:30)
[2018-07-18 00:54] VITALS: BP 118/76; PULSE 97; RESP 16; TEMP 36.9; O2SAT 97
[2018-07-18] MEDS: HYDROCODONE/ACET 5/325 TABLET 2 TAB PO ×6 (01:28→22:31)
[2018-07-18] MEDS: METOCLOPRAMIDE 10 MG/2 ML INJ 5 MG IV ×2 (01:29→13:37)
[2018-07-18] MEDS: LORazepam 2 MG/ML SYRINGE 1 MG IV (01:37)
[2018-07-18 05:22] VITALS: BP 116/70; PULSE 102; RESP 18; TEMP 36.7; O2SAT 98
[2018-07-18 08:20] VITALS: BP 112/72; PULSE 86; RESP 13; TEMP 36.7; O2SAT 97
[2018-07-18] MEDS: DULOXETINE 20 MG CAPSULE PO ×2 (09:04→20:03)
[2018-07-18] MEDS: PANTOPRAZOLE 40 MG VIAL IV ×2 (09:05→20:03)
[2018-07-18] MEDS: ENOXAPARIN 40 MG/0.4 ML SYRINGE SUBCUT (09:05)
[2018-07-18] MEDS: ONDANSETRON 4 MG/2 ML INJ IV ×2 (09:10→16:04)
[2018-07-18] MEDS: SODIUM CHLORIDE 0.9% FLUSH 10 ML IV ×4 (09:10→20:03)
--- NOTE | 2018-07-18 09:30 | PC.NURSE ---
Addendum entered by Carolyn Gamboa R.N. 07/18/18 11:10: Resting quietly in bed with eyes closed. Respirations regular and unlabored. No s/sx distress or discomfort. Will allow to rest. Call light in reach. Original Note: Shift summary: Resting quietly in bed, oriented X3. Reports she ate most of her breakfast and is slightly nauseated. Medicated with IV Zofran per e-jan. C/O 04/23 abd pain, medicated with 2 tabs Vicodin. BT+, flatus- reports she was passing gas all night. Abdomen soft, non-distended. Lungs CTA, HRR. SpO2 on RA 97%. Indep with bed mobility, wants to try and sleep a bit. Able to make needs known, call light in reach. Son rooming in.
[2018-07-18 11:59] VITALS: BP 116/60; PULSE 95; RESP 14; TEMP 36.4; O2SAT 97
[2018-07-18 16:10] VITALS: BP 103/68; PULSE 91; RESP 18; TEMP 36.4; O2SAT 97
--- NOTE | 2018-07-18 19:21 | PC.NURSE ---
Addendum entered by Brandi Neumann R.N. 07/18/18 22:50: pt declined to walk in hallways a second time for this day, states she prefers to just sleep despite encouragement from staff. Original Note: SHIFT NOTE Received pt sleeping, wakens to verbal stimuli. pt states nausea without emesis, administered PRN zofran. 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 educated pt on pain management options, which pt then agreeable to take PRN norco. Encouraged pt to ambulate in hallways, agreeable to walk in hallway (took two laps around [facility] station). pt's son at bedside. call light within reach.
[2018-07-18 20:16] VITALS: BP 91/58; PULSE 85; RESP 18; TEMP 36.4; O2SAT 98
--- NOTE | 2018-07-19 | DI.RAD.S_ITS ---
PROCEDURE: XR KUB INDICATIONS: Abdominal pain TECHNIQUE: One view of the abdomen acquired. COMPARISON: [facility], CT, CT ABDOMEN PELVIS W CON, 07/15/2018, 11:16. [facility], CR, XR ABDOMEN 1V, 07/15/2018, 14:08. FINDINGS: Surgical changes and devices: Is oral contrast from CT scanning of 07/15/18 is present, and has transited into the left colon and sigmoid colon. Bowel: Bowel gas pattern is normal except for mild prominence of small bowel gas filling over the right midabdomen. Soft tissues: No suspicious abdominal calcifications. Visualized solid organ contours appear normal in size. Bones: No suspicious bony lesions. IMPRESSION: Progression of oral contrast from prior CT scanning from the right colon into the left colon. Persistent mild prominence of air within small bowel loops at the right midabdomen. Some degree of ileus involving those small bowel loops likely is present. Dictated by: Ted Patel M.D. on 07/20/2018 at 8:52 Approved by: Ted Patel M.D. on 07/20/2018 at 9:01
[2018-07-19 00:35] VITALS: BP 114/79; PULSE 99; RESP 18; TEMP 36.4; O2SAT 98
[2018-07-19] MEDS: METOCLOPRAMIDE 10 MG/2 ML INJ 5 MG IV ×2 (00:51→13:32)
[2018-07-19] MEDS: LORazepam 2 MG/ML SYRINGE 1 MG IV (00:56)
--- NOTE | 2018-07-19 05:03 | PC.NURSE ---
0045 Pt awake and requesting pain medication for abd pain. Pt informed it was too early for analgesia. Pt offered Ativan for decrease in anxiety and assistance with sleeping. Routinely scheduled Reglan given. Pt agreeable to Ativan. Pt OOB independently to bathroom with steady gait. Pt returned to bed after void. Assessment completed.
[2018-07-19 05:30] VITALS: BP 105/57; PULSE 89; RESP 16; TEMP 36.3; O2SAT 95
[2018-07-19] MEDS: HYDROCODONE/ACET 5/325 TABLET 2 TAB PO ×3 (05:44→16:06)
--- NOTE | 2018-07-19 08:18 | PM.PN.1 ---
Subjective Date Patient Seen: 07/18/18 Time Patient Seen: 11:18 Interval history: Kalie reports that she is still having abdominal pain. She did have a small bowel movement per reports her belly hurts so much that she has difficulty walking. She also reports that she is nauseated and does not really want to eat. Her son is in the room with her today. Exam Vital Signs (past 8 hours): - 07/19/18 00:35 07/19/18 05:30 Temperature 97.6 F 97.4 F L Pulse Rate 99 H 89 Respiratory Rate 18 16 Blood Pressure 114/79 105/57 L Pulse Oximetry 98 95 Oxygen Delivery Method Room Air Oxygen Flow Rate 0 Narrative Exam Narrative: Lungs: Clear bilaterally Heart: Regular rate and rhythm Abdomen is soft and flat, minimal tenderness to palpation below the umbilicus now. Normoactive bowel sounds. Laparoscopy incisions are healing well. Extremities: No edema Objective Labs Result Diagrams: 07/15/18 05:42 07/15/18 05:42 Assessment & Plan Plan: Assessment/Plan Narrative: Continued abdominal pain after laparoscopic lysis of adhesions and small-bowel resection now 3 weeks ago. There is no evidence of bowel obstruction but her bowels are moving slowly. I will recheck a flat plate in the morning. Continue Reglan for now. Quality VTE Deep Vein Thrombosis/Pulmonary Embolism Present on Admission: No
[2018-07-19 08:40] VITALS: BP 123/68; PULSE 108; RESP 14; TEMP 36.1; O2SAT 93
[2018-07-19] MEDS: LACTULOSE 20 GM/30 ML SOLUTION PO (09:29)
[2018-07-19] MEDS: PANTOPRAZOLE 40 MG VIAL IV ×2 (09:29→19:56)
[2018-07-19] MEDS: ENOXAPARIN 40 MG/0.4 ML SYRINGE SUBCUT (09:29)
[2018-07-19] MEDS: DULOXETINE 20 MG CAPSULE PO ×2 (09:30→19:56)
--- NOTE | 2018-07-19 11:30 | CM.DPC ---
DCP Cont: Surgeon has seen patient today. Patient continues to have abdominal pain. Will not be discharged today, but surgeon will be following up with her tomorrow. P: DCP to continue to assess. Patient to return to [facility] when stable. Shari Jeong RN/[employer]
--- NOTE | 2018-07-19 11:40 | PC.NURSE ---
Assess- Pt states that she is having 6/7 pain to her abdomen. Given 2 vicodin with good pain control. Pts bt are + throughout and she is getting up independently from bed. Eating some at meals. Old incisions to lower abdominal area are all cdi. Pts son sitting in room with patient. She is lying on her r.side and is napping.
[2018-07-19 12:09] VITALS: BP 93/57; PULSE 98; RESP 15; TEMP 36.8; O2SAT 96
--- NOTE | 2018-07-19 12:14 | PC.NURSE ---
Pt is A&0x3. BS with crackles to lower lobes, she is 99% on RA. Pt is also wheezing and sob with exertion when up to bsc. Voided 400cc of dark sb urine. She is unsteady on her feet but calls appropriately. Pt has a productive cough with white colored phlegm. here and visiting.
[2018-07-19 15:55] VITALS: BP 116/76; PULSE 92; RESP 20; TEMP 36.9; O2SAT 97
--- NOTE | 2018-07-19 16:14 | PC.NURSE ---
Ambulatory in hallway @ beginning of shift with son. Steady gait. Now back in bed and positions self independently in bed. Admits to poor appetite. Bowel tones present in all four quadrants with soft abdomen. Admits to passing flatus. Rates sharp pain to abdomen and headache pain 6/10. Administered 2 vicodin as per emar.
--- NOTE | 2018-07-19 17:02 | PM.PN.1 ---
Subjective Date Patient Seen: 07/19/18 Time Patient Seen: 17:02 Interval history: Billy reports that she walked in the halls and take shower today. She denies eating but nursing staff reported she ate 100% of her meal at lunch. She denies any bowel movement today but reports that she did pass some gas. Says she still has some abdominal pain at times. Definitely does not want to go home. Exam Vital Signs (past 8 hours): - 07/19/18 12:09 Temperature 98.2 F Pulse Rate 98 H Respiratory Rate 15 Blood Pressure 93/57 L Pulse Oximetry 96 Oxygen Delivery Method Room Air Oxygen Flow Rate 0 Narrative Exam Narrative: Abdomen is soft, minimal tenderness to palpation, active bowel sounds. Objective Labs Result Diagrams: 07/15/18 05:42 07/15/18 05:42 Assessment & Plan Plan: Assessment/Plan Narrative: KUB today clearly shows contrast in the descending and transverse colons. Kalie has not had any nausea in several days. I have talked to her about discharge in the morning. She is reticent to consider that because she says she still has some pain in her abdomen. I have assured her that all of her pain will not be gone when she goes home but she is still healthy enough to go. I will stop Vicodin tonight and try tramadol. Plan for discharge in the morning. Quality VTE Deep Vein Thrombosis/Pulmonary Embolism Present on Admission: No
[2018-07-19 19:00] VITALS: BP 128/90; PULSE 94; RESP 20; TEMP 37.1; O2SAT 97
[2018-07-19] MEDS: TRAMADOL 50 MG TABLET 100 MG PO (19:56)
[2018-07-19] MEDS: SODIUM CHLORIDE 0.9% FLUSH 10 ML IV (19:56)
[2018-07-19] MEDS: BISACODYL 10 MG SUPP PR (19:57)
--- NOTE | 2018-07-19 22:07 | PC.NURSE ---
Reported by staff pt had small formed stool. Awaiting collection by FIBROUS PLASTERER and was informed another staff member flushed stool down the toilet. Will attempt to collect once again if pt stools. Pt is resting quietly in bed on left side without signs of distress or discomfort. Reports not much of an appetite for dinner, but son states pt ate fruit that was provided on dinner tray.
[2018-07-20 00:14] VITALS: BP 108/66; PULSE 94; RESP 18; TEMP 36.7; O2SAT 99
[2018-07-20] MEDS: METOCLOPRAMIDE 10 MG/2 ML INJ 5 MG IV (00:51)
[2018-07-20] MEDS: TRAMADOL 50 MG TABLET 100 MG PO ×4 (00:52→22:04)
[2018-07-20] MEDS: LORazepam 2 MG/ML SYRINGE 1 MG IV ×2 (00:54→17:48)
[2018-07-20 06:43] VITALS: BP 101/66; PULSE 93; RESP 18; TEMP 36.7; O2SAT 96
[2018-07-20] MEDS: PANTOPRAZOLE 40 MG VIAL IV ×2 (08:44→22:04)
[2018-07-20] MEDS: DULOXETINE 20 MG CAPSULE PO ×2 (08:45→22:05)
[2018-07-20] MEDS: LACTULOSE 20 GM/30 ML SOLUTION PO (08:46)
[2018-07-20] MEDS: SODIUM CHLORIDE 0.9% FLUSH 10 ML IV ×2 (08:47→22:05)
[2018-07-20] MEDS: ENOXAPARIN 40 MG/0.4 ML SYRINGE SUBCUT (08:47)
[2018-07-20 09:25] VITALS: BP 110/70; PULSE 93; RESP 18; TEMP 36.8; O2SAT 97
--- NOTE | 2018-07-20 11:25 | CM.DPC ---
DCP Cont: Spoke with Dr. Rios to inquire on status of discharge, for patient has been here since 07/12. She stated that the patient has not been wanting to leave due to pain. Did let her know that insurance would no longer be paying for her stay due to length of visit. stated that they had found something on her breast, would be doing a mammogram and ultra sound today, then would plan on discharging her. P: Patient should be discharging home today. Shari Jeong RN/Chief Of Safety And Protection
[2018-07-20 11:56] VITALS: BP 107/67; PULSE 105; RESP 18; TEMP 36.9; O2SAT 97
--- NOTE | 2018-07-20 15:40 | PC.NURSE ---
U/S and [facility]. Pt advised that she may be discharged home later today once Dr Rios has finished with surgery. Pt agreeable to this plan. Tramadol seems to be helping with abdominal pain (epigastric area).
[2018-07-20] MEDS: ONDANSETRON 4 MG/2 ML INJ IV ×2 (15:45→22:04)
[2018-07-20 15:53] VITALS: BP 122/73; PULSE 93; RESP 18; TEMP 36.1; O2SAT 97
--- NOTE | 2018-07-20 20:38 | PM.PN.1 ---
Subjective Date Patient Seen: 07/20/18 Time Patient Seen: 09:43 Interval history: Kalie reports that she is still having some abdominal pain. She is eating some of each meal. She continues to pass flatus. She is continuing to refuse suppositories. She says she has no one to take her home today but will have a ride in the morning. Exam Vital Signs (past 8 hours): - 07/20/18 15:53 Temperature 97.0 F L Pulse Rate 93 H Respiratory Rate 18 Blood Pressure 122/73 Pulse Oximetry 97 Oxygen Delivery Method Room Air Oxygen Flow Rate 0 Narrative Exam Narrative: Abdomen is soft, minimal tenderness to palpation, active bowel sounds. Incisions are clean dry and intact. Extremities: Warm and well perfused Objective Labs Result Diagrams: 07/15/18 05:42 07/15/18 05:42 Assessment & Plan Plan: Assessment/Plan Narrative: 1. Improving recurrent partial small bowel obstruction. Kalie is not a great deal but she is eating enough to sustain herself. Her pain has been reasonably well controlled with tramadol. 2. On reviewing all of her CT scans that all of her films with Dr. Patel this morning, it appears that her bowel obstruction is improving. An additional finding includes 3 small masses in the left breast. One is a known cyst and the other 2 are not described in previous studies. Dr. Patel has recommended a diagnostic mammogram and ultrasound for these findings. In discussing this with Kalie, she reports that her mother with breast cancer. 3. I have requested bilateral diagnostic mammogram and left breast ultrasound but late this evening I was informed that these will not be done except on an outpatient basis. Kalie has arranged transport for the morning and she is becoming more comfortable with tramadol only for pain control. She will be discharged and we will see her in 2 weeks in the clinic. Quality VTE Deep Vein Thrombosis/Pulmonary Embolism Present on Admission: No
--- NOTE | 2018-07-20 20:51 | P.DS_ITS ---
History of Present Illness Chief complaint: STOMACH PAINS Narrative: Very pleasant 47-year-old lady who was discharged from our hospital 12 days ago after 1 week admission for small-bowel obstruction. During that admission, she underwent laparoscopy with extensive lysis of adhesions and small -bowel resection with primary anastomosis. Kalie reports that she tried to follow all instructions carefully. She felt reasonably well until last evening when she woke up sweating profusely. Severe abdominal pain and nausea and vomiting followed. She reports she wanted to call paramedics but was reluctant to wake up anyone else in the house. Discharge Providers Date of admission: 07/12/18 17:15 Consults: 07/12/18 19:09 Consult to Discharge Planning Routine Comment: Discharge provider: Suyapa Rios MD Summary Discharge Diagnosis: Partial small bowel obstruction Hospital Course: Kalie was admitted to the hospital and treated with watchful waiting and bowel rest. She had a CT scan which revealed thickened loop of bowel and possible fluid in the pelvis. A KUB taken after that revealed contrast moving through her colon. The movement is slow but the caliber of the bowel is normal. At this time, Kalie his abdominal pain is managed well with Ultram. She was noted on her most recent CT of the abdomen and pelvis to have 3 small masses in the left breast. An outpatient mammogram and ultrasound have been ordered to address these issues. Kalie has a rates transportation for the morning and her son will fill her prescriptions. She will follow up with me in 2 weeks. Status at Discharge Cognitive/behavioral status at discharge: Back to baseline Functional status at discharge: independent ambulation Overall status at discharge: patient is progressing back to baseline Time Spent with Patient Less than 30 minutes Exam Vital Signs (past 8 hours): - 07/20/18 15:53 Temperature 97.0 F L Pulse Rate 93 H Respiratory Rate 18 Blood Pressure 122/73 Pulse Oximetry 97 Oxygen Delivery Method Room Air Oxygen Flow Rate 0 Objective Labs Result Diagrams: 07/15/18 05:42 07/15/18 05:42 Discharge Plan Discharge Plan Patient Disposition: Home Discharge Med Rec/Prescriptions Prescriptions: New tramadol 50 mg tablet 50 mg PO QID PRN (Reason: pain) Qty: 30 RF: 0 Continue duloxetine 20 mg capsule,delayed release(DR/EC) 20 mg PO BID Qty: 60 RF: 0 omeprazole 40 MG capsule,delayed release(DR/EC) 40 mg PO QDAY Qty: 30 RF: 6 multivitamin [Multiple Vitamins] 1 EACH tablet 1 tab PO QDAY Qty: 0 RF: 0 Discontinued oxycodone-acetaminophen 5-325 mg tablet See Label Instructions .ROUTE .COMPLEX PRN (Reason: painful procedure) Qty: 14 RF: 0 Follow up/Referrals: Suyapa Rios MD [Physician] - 2 Weeks Provider Discharge Instructions Diet: Diet as Tolerated Skin/Wound/Dressing Care Report to your healthcare provider any signs of infection, such as:: chills, fever, night sweats and increased pain Discharge Data Attending Provider: Suyapa Rios Admit Date/Time: 07/12/18 17:15 Quality VTE Deep Vein Thrombosis/Pulmonary Embolism Present on Admission: No
[2018-07-20 21:43] VITALS: BP 119/75; PULSE 82; RESP 20; TEMP 36.8; O2SAT 98
[2018-07-21] VITALS: BP 124/77; PULSE 91; RESP 17; TEMP 36.3; O2SAT 98
[2018-07-21] MEDS: diphenhydrAMINE 50 MG/ML VIAL 25 MG IV (00:11)
[2018-07-21] MEDS: METOCLOPRAMIDE 10 MG/2 ML INJ 5 MG IV (00:46)
[2018-07-21] MEDS: LORazepam 2 MG/ML SYRINGE 1 MG IV (00:46)
[2018-07-21 06:00] VITALS: BP 99/56; PULSE 84; RESP 17; TEMP 36.6; O2SAT 98
[2018-07-21 08:46] VITALS: BP 97/56; PULSE 99; RESP 16; TEMP 36.8; O2SAT 96
[2018-07-21] MEDS: ENOXAPARIN 40 MG/0.4 ML SYRINGE SUBCUT (09:16)
[2018-07-21] MEDS: DULOXETINE 20 MG CAPSULE PO (09:16)
[2018-07-21] MEDS: LACTULOSE 20 GM/30 ML SOLUTION PO (09:16)
[2018-07-21] MEDS: TRAMADOL 50 MG TABLET 100 MG PO (09:28)
--- NOTE | 2018-07-21 09:50 | PC.NURSE ---
IV removed. Pt given dc paperwork. Script already filled. Given tramadol for pain control. Pt reported pain at 6, then down to 5 after tramadol. Dressed and ready to be taken by wheelchair to waiting vehicle.
== END 2018-07-21 10:16 | disposition home or self-care (01) | DRG 247 ==
LOC: ED 14:47 → AC 17:16
PROVIDERS: Admitting Provider Surgery; Emergency Provider Emergency Medicine; Visit Provider Surgery
DX: K56.7 Ileus, unspecified (principal); F41.8 Other specified anxiety disorders; E78.5 Hyperlipidemia, unspecified; K21.9 Gastro-esophageal reflux disease without esophagitis; N63.20 Unspecified lump in the left breast, unspecified quadrant
CPT/HCPCS: 36415; 36591; 74018; 74019; 74177; 80048; 80053; 81003; 81015; 83690; 84145; 85025; 96361; 96374; 96375; 99283; 99284; C9113; J1170; J1200; J1650; J2060; J2270; J2405; J2765

== ENCOUNTER 2019-01-25 18:38 | Emergency (ER) | payer SELFPAY ==
[2018-07-12 17:33] VITALS: BMI 24.7
[2019-01-25 18:55] VITALS: BP 121/70; PULSE 89; RESP 18; TEMP 36.8; O2SAT 99; BMI 24.7
--- NOTE | 2019-01-25 19:09 | ED.ABDPAIN ---
HPI - Abdominal Pain <CAROLE Wayne - Last Filed: 01/25/19 22:23> General Chief Complaint: Abdominal Pain Stated Complaint: dizziness,nausea,elevated Blood pressure Time Seen by Provider: 01/25/19 18:54 Source: patient Mode of arrival: ambulatory Limitations: no limitations History of Present Illness HPI narrative: 48-year-old female with history of depression is a nonsmoker here for complaint of having generalized malaise along with headache and chills over the past day and half. She denies any nausea vomiting. No diarrhea. No abdominal pain at this time free. She does report having decreased p.o. intake as she has not had significant appetite over the past day and half. She says that there has been multiple people at her work that have had similar symptoms. She denies any urinary symptoms. No other concerns or complaints at this timeframe. complaint: other Related Data Previous Rx's Medication Instructions Recorded omeprazole 40 mg PO QDAY #30 cap 02/02/18 duloxetine 20 mg capsule,delayed 20 mg PO BID #60 cap 04/26/18 release multivitamin [Multiple Vitamins] 1 tab PO QDAY #0 tab NS 06/24/18 tramadol 50 mg PO QID PRN #30 tab 07/20/18 Allergies Allergy/AdvReac Type Severity Reaction Status Date / Time No Known Drug Allergies Allergy Verified 06/23/18 16:08 Review of Systems <CAROLE Wayne - Last Filed: 01/25/19 22:23> Constitutional Reports chills, Denies fever(s), Reports headache(s), Denies lethargy and Denies weakness Eyes Denies change in vision, Denies eye discharge, Denies irritation and Denies loss of vision ENT Ears, Nose, Mouth, and Throat: Denies change in voice, Reports headache(s), Denies neck pain and Denies sore throat Cardiovascular Denies chest pain, Denies irregular heart rhythm, Denies lightheadedness, Denies palpitations, Denies dyspnea, Denies dyspnea on exertion and Denies orthopnea Respiratory Denies cough, Denies dyspnea, Denies dyspnea on exertion and Denies wheezing Gastrointestinal Gastrointestinal: Denies abdominal pain, Denies change in bowel habits, Denies diarrhea, Denies nausea and Denies vomiting Genitourinary Denies hematuria, Denies flank pain, Denies urinary incontinence and Denies urinary urgency Musculoskeletal Denies neck pain Integumentary/Breasts Denies pruritus, Denies erythema, Denies rash and Denies wounds Neurologic Denies confusion, Reports headache(s), Denies loss of vision and Denies weakness Psychiatric Denies anxiety, Denies confusion, Denies depression, Denies homicidal ideation and Denies suicidal ideation Endocrine Denies palpitations Allergic/Immunologic Denies wheezing PFSH <CAROLE Wayne - Last Filed: 01/25/19 22:23> Medical History History of small bowel obstruction (Acute) Adhesion of intestine (Acute) Mixed anxiety depressive disorder (Chronic) Gastric ulcer with hemorrhage (Resolved) Hyperlipidemia (Chronic) Iron deficiency anemia (Suspected) Cobalamin deficiency (Resolved) Anxiety (Chronic Unknown) Depression (Chronic Unknown) GERD (gastroesophageal reflux disease) (Chronic Unknown) Hyperlipemia (Chronic Unknown) Hx of gastric ulcer (Resolved 2016) Small bowel obstruction (Inactive) Surgical History Status post small bowel resection (Acute) History of (Acute) Family History Father No problems noted. Mother Cancer Social History household members: children Smoking Status: Never smoker Family History Father No problems noted. Mother Cancer Social History household members: children Smoking Status: Never smoker Exam <CAROLE Wayne - Last Filed: 01/25/19 22:23> Initial Vital Signs Initial Vital Signs: Vital Signs Temperature 98.2 F 01/25/19 18:55 Pulse Rate 89 01/25/19 18:55 Respiratory Rate 18 01/25/19 18:55 Blood Pressure 121/70 01/25/19 18:55 Pulse Oximetry 99 01/25/19 18:55 Const General: cooperative and well developed Nutritional Appearance: well nourished Orientation: alert, awake, oriented x3 and not confused HENMT Mouth: oral mucosae normal and moist mucous membranes Eyes Conjunctivae: conjunctivae normal Sclera: sclerae normal Pupils: PERRL EOM: EOM intact bilaterally Resp Effort & Inspection: normal respiratory effort, able to speak in complete sentences, no respiratory distress and no use of accessory muscles Auscultation: clear to auscultation bilaterally, no rales, no rhonchi and no wheezes Cardio Rate: regular rate Rhythm: regular rhythm Heart Sounds: no click, no gallops, no murmurs and no rubs Pulses: normal peripheral pulses GI Inspection: non-distended Palpation: soft, no hepatosplenomegaly, No guarding, No pulsatile mass and No tender Auscultation: normal bowel sounds General: CVA tenderness <Kavita Johns MD - Last Filed: 01/26/19 02:32> Initial Vital Signs Initial Vital Signs: Vital Signs Temperature 98.2 F 01/25/19 18:55 Pulse Rate 89 01/25/19 18:55 Respiratory Rate 18 01/25/19 18:55 Blood Pressure 121/70 01/25/19 18:55 Pulse Oximetry 99 01/25/19 18:55 Course <CAROLE Wayne - Last Filed: 01/25/19 22:23> Orders Ordered: ED Orders 01/25/19 19:40 Complete Blood Count AUTO DIFF Stat Comprehensive Metabolic Panel Stat Influenza A and B by PCR Rapid Stat Discontinued Medications Sodium Chloride (Normal Saline 0.9%) 1,000 mls @ 1,000 mls/hr IV BOLUS ONE Stop: 01/25/19 20:22 Last Infusion: 01/25/19 21:17 Dose: 1,000 mls/hr Admin: 01/25/19 19:35 Dose: 1,000 mls/hr Ketorolac Tromethamine (Toradol) 30 mg IV NOW ONE Stop: 01/25/19 19:24 Last Admin: 01/25/19 19:44 Dose: 30 mg Ondansetron HCl (Zofran) 4 mg IV NOW ONE Stop: 01/25/19 19:24 Last Admin: 01/25/19 19:44 Dose: 4 mg Vital Signs - 8 hr 01/25/19 18:55 01/25/19 19:30 01/25/19 21:20 Temperature 98.2 F Pulse Rate 89 85 70 Respiratory Rate 18 16 12 Blood Pressure 121/70 Blood Pressure [Right Arm] 104/82 104/62 Pulse Oximetry 99 96 100 <Kavita Johns MD - Last Filed: 01/26/19 02:32> Orders Ordered: ED Orders 01/25/19 19:40 Complete Blood Count AUTO DIFF Stat Comprehensive Metabolic Panel Stat Influenza A and B by PCR Rapid Stat Discontinued Medications Sodium Chloride (Normal Saline 0.9%) 1,000 mls @ 1,000 mls/hr IV BOLUS ONE Stop: 01/25/19 20:22 Last Infusion: 01/25/19 21:17 Dose: 1,000 mls/hr Admin: 01/25/19 19:35 Dose: 1,000 mls/hr Ketorolac Tromethamine (Toradol) 30 mg IV NOW ONE Stop: 01/25/19 19:24 Last Admin: 01/25/19 19:44 Dose: 30 mg Ondansetron HCl (Zofran) 4 mg IV NOW ONE Stop: 01/25/19 19:24 Last Admin: 01/25/19 19:44 Dose: 4 mg Vital Signs - 8 hr 01/25/19 18:55 01/25/19 19:30 01/25/19 21:20 Temperature 98.2 F Pulse Rate 89 85 70 Respiratory Rate 18 16 12 Blood Pressure 121/70 Blood Pressure [Right Arm] 104/82 104/62 Pulse Oximetry 99 96 100 MDM - Abdominal Pain <CAROLE Wayne - Last Filed: 01/25/19 22:23> Lab Data Result diagrams: 01/25/19 19:40 01/25/19 19:40 Lab Results 01/25/19 01/25/19 01/25/19 Range/Units 19:40 19:40 19:40 WBC 9.1 (4.5-11.0) X10^3/uL RBC 4.67 (4.0-5.2) X10^6/uL Hgb 12.0 (12.0-16.0) g/dL Hct 37.0 (36-46) % MCV 79.2 L (80-100) fL MCH 25.7 L (26-34) PG MCHC 32.5 (30-36) % RDW 13.7 (11.6-14.8) % Plt Count 315 (150-400) X10^3/uL Neut % (Auto) 62.6 (50-75) % Lymph % (Auto) 28.1 (25-40) % [place] % (Auto) 7.3 (3-14) % Eos % (Auto) 1.2 L (2-4) % Baso % (Auto) 0.8 (0-2) % Neut # (Auto) 5700 (6188-7464) /uL Lymph # (Auto) 2600 (9852-0344) /uL [place] # (Auto) 700 (0-900) /uL Eos # (Auto) 100 (0-450) /uL Baso # (Auto) 100 (0-100) /uL Sodium 139 (137-145) mmol/L Potassium 4.1 (3.4-5.1) mmol/L Chloride 100 (98-107) mmol/L Carbon Dioxide 29 (22-32) mmol/L BUN 15 (7-17) mg/dL Creatinine 0.90 (0.52-1.04) mg/dL Estimated GFR > 60.0 (>60) mL/min BUN/Creatinine Ratio 16.7 (6-22) Glucose 93 (70-100) mg/dL Calcium 9.6 (8.4-10.2) mg/dL Total Bilirubin 0.4 (0.2-1.3) mg/dL AST 31 (14-36) IU/L ALT 21 (9-52) IU/L Alkaline Phosphatase 82 (38-126) U/L Total Protein 8.0 (6.3-8.2) g/dL Albumin 4.5 (3.5-5.0) g/dL Globulin 3.5 (1.7-4.1) g/dL Albumin/Globulin Ratio 1.3 (1.0-2.8) Influenza A & B (PCR) Negative (Negative) Point of care testing: Urine Dip Bedside Urine Glucose Negative Bedside Urine Bilirubin - Negative Bedside Urine Ketone - Negative Urine Specific [place] 1.015 Bedside Urine Occult Blood - Negative Bedside Urine pH 7.0 Bedside Urine Protein - Negative Bedside Urine Urobilinogen - Negative Bedside Urine Nitrite - Negative Bedside Urine Leukocytes - Negative Esterase MDM Narrative Medical decision making narrative: CBC and Chem panel were obtained during unremarkable. Influenza swab was obtained was negative. Urinalysis was negative for urinary tract infection. Signs and symptoms presents as a viral illness. Plenty of fluids and rest. [id number] Tylenol or Motrin as needed for discomfort and fever. Follow up with primary care provider. Return emergency room for any worsening symptoms. <Kavita Johns MD - Last Filed: 01/26/19 02:32> Lab Data Lab Results 01/25/19 01/25/19 01/25/19 Range/Units 19:40 19:40 19:40 WBC 9.1 (4.5-11.0) X10^3/uL RBC 4.67 (4.0-5.2) X10^6/uL Hgb 12.0 (12.0-16.0) g/dL Hct 37.0 (36-46) % MCV 79.2 L (80-100) fL MCH 25.7 L (26-34) PG MCHC 32.5 (30-36) % RDW 13.7 (11.6-14.8) % Plt Count 315 (150-400) X10^3/uL Neut % (Auto) 62.6 (50-75) % Lymph % (Auto) 28.1 (25-40) % [place] % (Auto) 7.3 (3-14) % Eos % (Auto) 1.2 L (2-4) % Baso % (Auto) 0.8 (0-2) % Neut # (Auto) 5700 (4876-7509) /uL Lymph # (Auto) 2600 (2658-0226) /uL [place] # (Auto) 700 (0-900) /uL Eos # (Auto) 100 (0-450) /uL Baso # (Auto) 100 (0-100) /uL Sodium 139 (137-145) mmol/L Potassium 4.1 (3.4-5.1) mmol/L Chloride 100 (98-107) mmol/L Carbon Dioxide 29 (22-32) mmol/L BUN 15 (7-17) mg/dL Creatinine 0.90 (0.52-1.04) mg/dL Estimated GFR > 60.0 (>60) mL/min BUN/Creatinine Ratio 16.7 (6-22) Glucose 93 (70-100) mg/dL Calcium 9.6 (8.4-10.2) mg/dL Total Bilirubin 0.4 (0.2-1.3) mg/dL AST 31 (14-36) IU/L ALT 21 (9-52) IU/L Alkaline Phosphatase 82 (38-126) U/L Total Protein 8.0 (6.3-8.2) g/dL Albumin 4.5 (3.5-5.0) g/dL Globulin 3.5 (1.7-4.1) g/dL Albumin/Globulin Ratio 1.3 (1.0-2.8) Influenza A & B (PCR) Negative (Negative) Point of care testing: Urine Dip Bedside Urine Glucose Negative Bedside Urine Bilirubin - Negative Bedside Urine Ketone - Negative Urine Specific [place] 1.015 Bedside Urine Occult Blood - Negative Bedside Urine pH 7.0 Bedside Urine Protein - Negative Bedside Urine Urobilinogen - Negative Bedside Urine Nitrite - Negative Bedside Urine Leukocytes - Negative Esterase Discharge Plan Departure Patient Disposition: Home Clinical Impression: Viral illness Discharge Date/Time: 01/25/19 21:41 Interventions: ED Discharge Assessment Last Done: 01/25/19 21:40 Instructions: DI for Viral Syndrome Activity Restrictions/Additional Instructions: Laboratory results today were unremarkable. Influenza swab was obtained was negative. Urinalysis negative for urinary tract infection. Make sure your drinking plenty of fluids. Get plenty of rest. [id number] Tylenol Motrin as needed for any discomfort or fever. Follow up with her primary care provider. Return emergency room for any worsening symptoms. Prescriptions: No Action duloxetine 20 mg capsule,delayed release(DR/EC) 20 mg PO BID Qty: 60 RF: 0 omeprazole 40 MG capsule,delayed release(DR/EC) 40 mg PO QDAY Qty: 30 RF: 6 multivitamin [Multiple Vitamins] 1 EACH tablet 1 tab PO QDAY Qty: 0 RF: 0 tramadol 50 mg tablet 50 mg PO QID PRN (Reason: pain) Qty: 30 RF: 0 Referrals: [facility] [Provider Group] Stand Alone Forms: Work Release Note
[2019-01-25 19:30] VITALS: BP 104/82; PULSE 85; RESP 16; O2SAT 96
[2019-01-25] MEDS: SODIUM CHLORIDE 0.9% 1,000 ML 1000 ML IV (19:35)
[2019-01-25] MEDS: KETOROLAC 60 MG/2 ML VIAL 30 MG IV (19:44)
[2019-01-25] MEDS: ONDANSETRON 4 MG/2 ML INJ IV (19:44)
[2019-01-25 20:05] LABS: Add Manual Diff / Slide Review NO; Basophils Absolute Auto 100 /uL (0-100); Basophils Percent Auto 0.8 % (0-2); Eosinophils Absolute Auto 100 /uL (0-450); Eosinophils Percent Auto 1.2 % (2-4); Lymphocytes Absolute Auto 2600 /uL (1100-4500); Lymphocytes Percent Auto 28.1 % (25-40); Mean Corpuscular HGB Conc 32.5 % (30-36); Mean Corpuscular Hemoglobin 25.7 PG (26-34); Mean Corpuscular Volume 79.2 fL (80-100); Monocytes Absolute Auto 700 /uL (0-900); Monocytes Percent Auto 7.3 % (3-14); Neutrophils Absolute Auto 5700 /uL (1500-7000); Neutrophils Percent Auto 62.6 % (50-75); Platelet Count 315 X10^3/uL (150-400); Red Blood Cell Count 4.67 X10^6/uL (4.0-5.2); Red Cell Distribution Width 13.7 % (11.6-14.8); White Blood Cell Count 9.1 X10^3/uL (4.5-11.0)
[2019-01-25 20:08] LABS: Influenza A and B by PCR Rapid Negative (Negative)
[2019-01-25 20:16] LABS: Alanine Aminotransferase 21 IU/L (9-52); Albumin 4.5 g/dL (3.5-5.0); Albumin Globulin Ratio 1.3 (1.0-2.8); Alkaline Phosphatase 82 U/L (38-126); Aspartate Aminotransferase 31 IU/L (14-36); BUN Creatinine Ratio 16.7 (6-22); Bilirubin Total 0.4 mg/dL (0.2-1.3); Blood Urea Nitrogen 15 mg/dL (7-17); Calcium 9.6 mg/dL (8.4-10.2); Carbon Dioxide 29 mmol/L (22-32); Chloride 100 mmol/L (98-107); Estimated Glomerular Filt Rate > 60.0 mL/min (>60); Globulin 3.5 g/dL (1.7-4.1); Glucose 93 mg/dL (70-100); HEMOLYSIS < 15 (0-50); Potassium 4.1 mmol/L (3.4-5.1); Sodium 139 mmol/L (137-145)
[2019-01-25 21:20] VITALS: BP 104/62; PULSE 70; RESP 12; O2SAT 100
== END 2019-01-25 21:41 | disposition home or self-care (01) ==
PROVIDERS: Emergency Provider Nurse Practitioner Family
DX: B34.9 Viral infection, unspecified (principal)
CPT/HCPCS: 36591; 80053; 81003; 85025; 87400; 96361; 96374; 96375; 99283; 99284; J1885; J2405

== ENCOUNTER 2019-06-15 08:25 | Emergency (ER) | payer SELFPAY ==
[2018-07-12 17:33] VITALS: BMI 24.7
[2019-06-15 08:25] VITALS: BP 135/94; PULSE 93; RESP 18; TEMP 36.8; O2SAT 98
--- NOTE | 2019-06-15 08:45 | ED_ITS ---
HPI - Abdominal Pain General Chief Complaint: Abdominal Pain Stated Complaint: Got pale at work, stomach hurts, body ache Time Seen by Provider: 06/15/19 08:35 Source: patient Mode of arrival: ambulatory Limitations: no limitations History of Present Illness HPI narrative: Patient is a 48-year-old female with history of small-bowel obstruction and small bowel resection presenting with mid abdominal pain. 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 No vomiting. Her abdominal pain is centrally located no radiation no migration. MD complaint: abdominal pain Onset (ago): hour(s) Pain Consistency: constant Location: periumbilical Severity: moderate Quality: cramping Radiation: none Migration to: no migration Relieving factors: nothing Exacerbating factors: nothing Related Data Previous Rx's Medication Instructions Recorded omeprazole 40 mg PO QDAY #30 cap 02/02/18 duloxetine 20 mg capsule,delayed 20 mg PO BID #60 cap 04/26/18 release multivitamin [Multiple Vitamins] 1 tab PO QDAY #0 tab NS 06/24/18 tramadol 50 mg PO QID PRN #30 tab 07/20/18 ondansetron 4 mg PO Q6-8H PRN #10 tab 06/15/19 Allergies Allergy/AdvReac Type Severity Reaction Status Date / Time No Known Drug Allergies Allergy Verified 06/15/19 08:49 Review of Systems Review of Systems GENERAL: Denies chills, fatigue, malaise, fever, sweats, travel HEENT: Denies sinus pain, ear pain, sore throat, difficulty swallowing, neck pain RESPIRATORY: Denies dyspnea, cough, wheezing, hemoptysis, sputum. CARDIOVASCULAR: Denies chest pain, palpitations, orthopnea, edema GASTROINTESTINAL: See HPI : Denies dysuria, frequency, incontinence, hematuria, urinary retention, flank pain. MUSCULOSKELETAL: Denies weakness, joint pain, or bony pain SKIN: No rash, no erythema, no pruritus NEUROLOGIC: Denies weakness, dizziness, headache, numbness, change in speech, confusion PSYCHIATRIC: No concerning psychosocial issues. 12 point review of systems is negative except for those stated above and HPI REPLACED BY [facility] Medical History History of small bowel obstruction (Acute) Adhesion of intestine (Acute) Mixed anxiety depressive disorder (Chronic) Gastric ulcer with hemorrhage (Resolved) Hyperlipidemia (Chronic) Iron deficiency anemia (Suspected) Cobalamin deficiency (Resolved) Anxiety (Chronic Unknown) Depression (Chronic Unknown) GERD (gastroesophageal reflux disease) (Chronic Unknown) Hyperlipemia (Chronic Unknown) Hx of gastric ulcer (Resolved 2016) Small bowel obstruction (Inactive) Surgical History Status post small bowel resection (Acute) History of (Acute) Family History Father No problems noted. Mother Cancer Social History household members: children Smoking Status: Never smoker Family History Father No problems noted. Mother Cancer Social History household members: children Smoking Status: Never smoker Exam Initial Vital Signs Initial Vital Signs: Vital Signs Temperature 98.2 F 06/15/19 08:25 Pulse Rate 93 H 06/15/19 08:25 Respiratory Rate 18 06/15/19 08:25 Blood Pressure 135/94 H 06/15/19 08:25 Pulse Oximetry 98 06/15/19 08:25 GENERAL: Well-appearing, well-nourished and in no acute distress. HEENT: Head atraumatic,EOMI, pupils reactive, face symmetric, moist mucous membranes CARDIOVASCULAR: Regular rate and rhythm without murmurs, rubs or gallops. RESPIRATORY: Breath sounds equal bilaterally, no wheezes rales or rhonchi. ABDOMEN: Soft, tender umbilical area no guarding or rebound no significant extension EXTREMITIES: Normal range of motion, no clubbing or edema. Neurovascularly intact NEUROLOGICAL: Alert and oriented x4.Normal gait and speech. Cranial nerves II through XII grossly intact. SKIN: Warm, dry, no laceration, no petechiae, no rashes or lesions. Course Orders Ordered: ED Orders 06/15/19 08:36 Complete Blood Count AUTO DIFF Stat Comprehensive Metabolic Panel Stat Lipase Stat Partial Thromboplastin Time Stat Prothrombin Time INR Stat 06/15/19 09:22 CT abdomen pelvis w con Stat 06/15/19 09:40 Urine Microscopic Stat 06/15/19 10:06 EKG-12 Lead Stat Discontinued Medications Sodium Chloride (Normal Saline 0.9%) 1,000 mls @ 1,000 mls/hr IV BOLUS ONE Stop: 06/15/19 09:40 Last Infusion: 06/15/19 11:15 Dose: 0 mls/hr Admin: 06/15/19 08:49 Dose: 1,000 mls/hr Sodium Chloride (Normal Saline 0.9%) 1,000 mls @ 1,000 mls/hr IV BOLUS ONE Stop: 06/15/19 09:41 Ketorolac Tromethamine (Toradol) 30 mg IV NOW ONE Stop: 06/15/19 08:42 Last Admin: 06/15/19 08:47 Dose: 30 mg Ondansetron HCl (Zofran) 4 mg IV NOW ONE Stop: 06/15/19 08:42 Last Admin: 06/15/19 08:48 Dose: 4 mg Vital Signs - 8 hr 06/15/19 08:25 06/15/19 09:30 06/15/19 10:19 Temperature 98.2 F Pulse Rate 93 H 88 88 Respiratory Rate 18 12 14 Blood Pressure 135/94 H Blood Pressure [Left Arm] 131/80 131/81 Pulse Oximetry 98 100 100 06/15/19 10:35 06/15/19 11:16 Temperature Pulse Rate 83 97 H Respiratory Rate 12 13 Blood Pressure 116/74 Blood Pressure [Left Arm] 126/78 Pulse Oximetry 99 100 MDM - Abdominal Pain Lab Data Attestation: I reviewed the patient's lab results. Result diagrams: 06/15/19 08:36 06/15/19 08:36 Lab Results 06/15/19 06/15/19 06/15/19 Range/Units 08:36 08:36 08:36 WBC 8.6 (4.5-11.0) X10^3/uL RBC 4.81 (4.0-5.2) X10^6/uL Hgb 12.4 (12.0-16.0) g/dL Hct 38.5 (36-46) % MCV 80.0 (80-100) fL MCH 25.7 L (26-34) PG MCHC 32.2 (30-36) % RDW 13.9 (11.6-14.8) % Plt Count 270 (150-400) X10^3/uL Neut % (Auto) 78.2 H (50-75) % Lymph % (Auto) 15.6 L (25-40) % Cocke % (Auto) 4.8 (3-14) % Eos % (Auto) 1.1 L (2-4) % Baso % (Auto) 0.3 (0-2) % Neut # (Auto) 6700 (2900-9402) /uL Lymph # (Auto) 1300 (2418-7329) /uL Cocke # (Auto) 400 (0-900) /uL Eos # (Auto) 100 (0-450) /uL Baso # (Auto) 0 (0-100) /uL PT 11.3 (10.1-12.7) SECONDS INR 1.0 (0.9-1.3) APTT 37 H (26.4-36.2) SECONDS Sodium 140 (137-145) mmol/L Potassium 4.2 (3.4-5.1) mmol/L Chloride 104 (98-107) mmol/L Carbon Dioxide 25 (22-32) mmol/L BUN 12 (7-17) mg/dL Creatinine 0.70 (0.52-1.04) mg/dL Estimated GFR > 60.0 (>60) mL/min BUN/Creatinine Ratio 17.1 (6-22) Glucose 92 (70-100) mg/dL Calcium 9.5 (8.4-10.2) mg/dL Total Bilirubin 0.4 (0.2-1.3) mg/dL AST 29 (14-36) IU/L ALT 13 (9-52) IU/L Alkaline Phosphatase 90 (38-126) U/L Total Protein 7.7 (6.3-8.2) g/dL Albumin 4.4 (3.5-5.0) g/dL Globulin 3.3 (1.7-4.1) g/dL Albumin/Globulin Ratio 1.3 (1.0-2.8) Lipase 389 H (23-300) U/L Urine RBC (0-5/HPF) Urine WBC (0-5/HPF) Ur Squamous Epith Cells (0-5/HPF) Amorphous Sediment Urine Bacteria (None) Ur Culture Indicated? Micro UA Comment 06/15/19 Range/Units 09:40 WBC (4.5-11.0) X10^3/uL RBC (4.0-5.2) X10^6/uL Hgb (12.0-16.0) g/dL Hct (36-46) % MCV (80-100) fL MCH (26-34) PG MCHC (30-36) % RDW (11.6-14.8) % Plt Count (150-400) X10^3/uL Neut % (Auto) (50-75) % Lymph % (Auto) (25-40) % Cocke % (Auto) (3-14) % Eos % (Auto) (2-4) % Baso % (Auto) (0-2) % Neut # (Auto) (0753-7455) /uL Lymph # (Auto) (6915-7930) /uL Cocke # (Auto) (0-900) /uL Eos # (Auto) (0-450) /uL Baso # (Auto) (0-100) /uL PT (10.1-12.7) SECONDS INR (0.9-1.3) APTT (26.4-36.2) SECONDS Sodium (137-145) mmol/L Potassium (3.4-5.1) mmol/L Chloride (98-107) mmol/L Carbon Dioxide (22-32) mmol/L BUN (7-17) mg/dL Creatinine (0.52-1.04) mg/dL Estimated GFR (>60) mL/min BUN/Creatinine Ratio (6-22) Glucose (70-100) mg/dL Calcium (8.4-10.2) mg/dL Total Bilirubin (0.2-1.3) mg/dL AST (14-36) IU/L ALT (9-52) IU/L Alkaline Phosphatase (38-126) U/L Total Protein (6.3-8.2) g/dL Albumin (3.5-5.0) g/dL Globulin (1.7-4.1) g/dL Albumin/Globulin Ratio (1.0-2.8) Lipase (23-300) U/L Urine RBC 5-10/hpf H (0-5/HPF) Urine WBC 1-5/hpf (0-5/HPF) Ur Squamous Epith Cells 5-10 /hpf H (0-5/HPF) Amorphous Sediment 2+ Urine Bacteria None seen (None) Ur Culture Indicated? Cult not indicated Micro UA Comment Point of care testing: Point of Care Testing Test Results Negative Urine Dip Bedside Urine Glucose Negative Bedside Urine Bilirubin + 1 Bedside Urine Ketone - Negative Urine Specific Morven 1.030 Bedside Urine Occult Blood ++ Bedside Urine pH 5.0 Bedside Urine Protein - Negative Bedside Urine Urobilinogen +/- 1mg Bedside Urine Leukocytes +/- [address] scan - abdomen: Radiologist's impression: PROCEDURE: CT ABDOMEN PELVIS W CON INDICATIONS: ab pain hx of SBO TECHNIQUE: After the administration of oral and intravenous contrast, 5 mm thick sections acquired from the diaphragms to the symphysis. 5 mm thick coronal and sagittal reformats were performed. For radiation dose reduction, the following was used: automated exposure control, adjustment of mA and/or kV according to patient size. COMPARISON: [facility], CT, CT ABDOMEN PELVIS W CON, 07/15/2018, 11:16. [facility], CT, CT ABDOMEN PELVIS W CON, 06/23/2018, 15:03. FINDINGS: Image quality: Diagnostic. ABDOMEN: Lung bases: Mild scar versus atelectasis appears to be present within the bilateral lung bases. The heart is normal in size without a pericardial effusion. Again, there are multiple densities identified within the left breast with a breast cyst identified, which appears to be unchanged, but not well characterized. A small peripherally calcified nodule is also evident within the right lung (image 5, series 2). There may be additional small nodules present bilaterally. Solid organs: The liver is noted to be hypodense when compared to the spleen. There is an avidly enhancing lesion identified within the left hepatic lobe adjacent to the gallbladder, which measures up to 1.4 cm in diameter, not significantly changed, given differences in imaging technique. No intrahepatic or extrahepatic biliary dilatation is evident. The gallbladder is not inflamed. The spleen, adrenals, and pancreas are within normal limits. The kidneys are unremarkable. No hydronephrosis is appreciated. Peritoneum and bowel: The stomach and duodenum are unremarkable. The majority of the small bowel loops are normal in size. However, there is a septated fluid-filled structure identified within the pelvis, which has a luminal diameter of 3.7 cm (image 72 series 2), previously measuring up to 3.7 cm when remeasured in a similar fashion. It is unclear whether this structure connects with the bowel or not, but is unchanged since the prior exam. The adjacent small bowel loops are not dilated. Moderate residual stool is identified throughout the colon. The appendix is normal in size without surrounding inflammation. No free fluid, loculated fluid collection or free air is evident. Nodes and vessels: No retroperitoneal or mesenteric adenopathy. Aorta and inferior vena cava are normal in caliber. Bones: No acute fracture or suspicious osseous lesion is identified. There are moderate degenerative changes of the lower lumbar spine. PELVIS: Genitourinary: The urinary bladder is decompressed and subsequently not adequately evaluated. Mild thickening of the urinary bladder wall is present. Miscellaneous: No inguinal hernias or adenopathy. No free fluid or loculated fluid collection is evident. The uterus is surgically absent. The ovaries are not definitely seen. Bones: No suspicious bony lesions. No acute pelvic fractures are evident. There mild degenerative changes of the sacroiliac joints. IMPRESSION: 1. Tubular fluid collection within the right hemipelvis is similar to the previous exams, likely representing a benign chronic process such as tubo-ovarian cyst or an enteric cyst. A focally dilated small bowel loop cannot be completely excluded. If the patient is experiencing bowel symptoms, please consider followup conventional radiographic imaging and close clinical followup to exclude a closed-loop small bowel obstruction. 2. Probable constipation. 3. Mild hepatic steatosis. There appears to be a flash filling hemangioma with bulging of the left hepatic lobe, unchanged. 4. Multiple bilateral breast nodules are not adequately evaluated. Please consider mammogram for better evaluation. Dictated by: Derrick Rogel M.D. on 06/15/2019 at 9:13 ECG Data Attestation: I personally reviewed and interpreted this ECG as follows: Prior ECG tracings: available for review Interpretation: Normal sinus rhythm rate 88 P are interval [address] changes no T-wave inversions similar to previous EKGs MDM Narrative Medical decision making narrative: The patient does not have a bowel obstruction blood work is overall reassuring. She received Toradol for pain which has seemed to help. She is overall feeling a little bit better. Discharge Plan Departure Patient Disposition: Home Clinical Impression: Abdominal pain Qualifiers: Abdominal location: periumbilical Qualified Code(s): R10.33 - Periumbilical pain Discharge Date/Time: 06/15/19 11:18 Interventions: ED Discharge Assessment Last Done: 06/15/19 11:16 Instructions: DI for Abdominal Pain-Adult Activity Restrictions/Additional Instructions: *You have been diagnosed with abdominal pain *What to do: Abdominal CT and blood work today is reassuring no sign of bowel obstruction. Increase fluid intake today. *Continue to take medications as directed Zofran 4 mg every 6-8 hours if needed for nausea or vomiting sent to [facility] in [place] *Follow up with your primary care provider in 2-3 days *Return to ER if you should have persistent pain and dizziness lightheadedness, persistent vomiting or any new, worsening or concerning symptoms Prescriptions: New ondansetron 4 mg tablet,disintegrating 4 mg PO Q6-8H PRN (Reason: nausea and vomiting) Qty: 10 RF: 0 No Action duloxetine 20 mg capsule,delayed release(DR/EC) 20 mg PO BID Qty: 60 RF: 0 omeprazole 40 MG capsule,delayed release(DR/EC) 40 mg PO QDAY Qty: 30 RF: 6 multivitamin [Multiple Vitamins] 1 EACH tablet 1 tab PO QDAY Qty: 0 RF: 0 tramadol 50 mg tablet 50 mg PO QID PRN (Reason: pain) Qty: 30 RF: 0 Stand Alone Forms: Work Release Note
[2019-06-15] MEDS: KETOROLAC 60 MG/2 ML VIAL 30 MG IV (08:47)
[2019-06-15] MEDS: ONDANSETRON 4 MG/2 ML INJ IV (08:48)
[2019-06-15] MEDS: SODIUM CHLORIDE 0.9% 1,000 ML 1000 ML IV (08:49)
[2019-06-15 09:07] LABS: Add Manual Diff / Slide Review NO; Basophils Absolute Auto 0 /uL (0-100); Basophils Percent Auto 0.3 % (0-2); Eosinophils Absolute Auto 100 /uL (0-450); Eosinophils Percent Auto 1.1 % (2-4); Hematocrit 38.5 % (36-46); Hemoglobin 12.4 g/dL (12.0-16.0); Lymphocytes Absolute Auto 1300 /uL (1100-4500); Lymphocytes Percent Auto 15.6 % (25-40); Mean Corpuscular HGB Conc 32.2 % (30-36); Mean Corpuscular Hemoglobin 25.7 PG (26-34); Monocytes Absolute Auto 400 /uL (0-900); Monocytes Percent Auto 4.8 % (3-14); Neutrophils Absolute Auto 6700 /uL (1500-7000); Neutrophils Percent Auto 78.2 % (50-75); Platelet Count 270 X10^3/uL (150-400); Red Blood Cell Count 4.81 X10^6/uL (4.0-5.2); Red Cell Distribution Width 13.9 % (11.6-14.8); White Blood Cell Count 8.6 X10^3/uL (4.5-11.0)
[2019-06-15 09:13] LABS: Prothrombin Time 11.3 SECONDS (10.1-12.7)
[2019-06-15 09:15] LABS: PTT Partial Thromboplastin Tim 37 SECONDS (26.4-36.2)
[2019-06-15 09:17] LABS: Alanine Aminotransferase 13 IU/L (9-52); Albumin 4.4 g/dL (3.5-5.0); Albumin Globulin Ratio 1.3 (1.0-2.8); Alkaline Phosphatase 90 U/L (38-126); Aspartate Aminotransferase 29 IU/L (14-36); BUN Creatinine Ratio 17.1 (6-22); Bilirubin Total 0.4 mg/dL (0.2-1.3); Blood Urea Nitrogen 12 mg/dL (7-17); Calcium 9.5 mg/dL (8.4-10.2); Carbon Dioxide 25 mmol/L (22-32); Chloride 104 mmol/L (98-107); Estimated Glomerular Filt Rate > 60.0 mL/min (>60); Globulin 3.3 g/dL (1.7-4.1); Glucose 92 mg/dL (70-100); HEMOLYSIS < 15 (0-50); Lipase 389 U/L (23-300); Potassium 4.2 mmol/L (3.4-5.1); Sodium 140 mmol/L (137-145); Total Protein 7.7 g/dL (6.3-8.2)
--- NOTE | 2019-06-15 09:22 | DI.CT.S_ITS ---
PROCEDURE: CT ABDOMEN PELVIS W CON INDICATIONS: ab pain hx of SBO TECHNIQUE: After the administration of oral and intravenous contrast, 5 mm thick sections acquired from the diaphragms to the symphysis. 5 mm thick coronal and sagittal reformats were performed. For radiation dose reduction, the following was used: automated exposure control, adjustment of mA and/or kV according to patient size. COMPARISON: [facility], CT, CT ABDOMEN PELVIS W CON, 07/15/2018, 11:16. [facility], CT, CT ABDOMEN PELVIS W CON, 06/23/2018, 15:03. FINDINGS: Image quality: Diagnostic. ABDOMEN: Lung bases: Mild scar versus atelectasis appears to be present within the bilateral lung bases. The heart is normal in size without a pericardial effusion. Again, there are multiple densities identified within the left breast with a breast cyst identified, which appears to be unchanged, but not well characterized. A small peripherally calcified nodule is also evident within the right lung (image 5, series 2). There may be additional small nodules present bilaterally. Solid organs: The liver is noted to be hypodense when compared to the spleen. There is an avidly enhancing lesion identified within the left hepatic lobe adjacent to the gallbladder, which measures up to 1.4 cm in diameter, not significantly changed, given differences in imaging technique. No intrahepatic or extrahepatic biliary dilatation is evident. The gallbladder is not inflamed. The spleen, adrenals, and pancreas are within normal limits. The kidneys are unremarkable. No hydronephrosis is appreciated. Peritoneum and bowel: The stomach and duodenum are unremarkable. The majority of the small bowel loops are normal in size. However, there is a septated fluid-filled structure identified within the pelvis, which has a luminal diameter of 3.7 cm (image 72 series 2), previously measuring up to 3.7 cm when remeasured in a similar fashion. It is unclear whether this structure connects with the bowel or not, but is unchanged since the prior exam. The adjacent small bowel loops are not dilated. Moderate residual stool is identified throughout the colon. The appendix is normal in size without surrounding inflammation. No free fluid, loculated fluid collection or free air is evident. Nodes and vessels: No retroperitoneal or mesenteric adenopathy. Aorta and inferior vena cava are normal in caliber. Bones: No acute fracture or suspicious osseous lesion is identified. There are moderate degenerative changes of the lower lumbar spine. PELVIS: Genitourinary: The urinary bladder is decompressed and subsequently not adequately evaluated. Mild thickening of the urinary bladder wall is present. Miscellaneous: No inguinal hernias or adenopathy. No free fluid or loculated fluid collection is evident. The uterus is surgically absent. The ovaries are not definitely seen. Bones: No suspicious bony lesions. No acute pelvic fractures are evident. There mild degenerative changes of the sacroiliac joints. IMPRESSION: 1. Tubular fluid collection within the right hemipelvis is similar to the previous exams, likely representing a benign chronic process such as tubo-ovarian cyst or an enteric cyst. A focally dilated small bowel loop cannot be completely excluded. If the patient is experiencing bowel symptoms, please consider followup conventional radiographic imaging and close clinical followup to exclude a closed-loop small bowel obstruction. 2. Probable constipation. 3. Mild hepatic steatosis. There appears to be a flash filling hemangioma with bulging of the left hepatic lobe, unchanged. 4. Multiple bilateral breast nodules are not adequately evaluated. Please consider mammogram for better evaluation. Dictated by: Derrick oRgel M.D. on 06/15/2019 at 9:13 Approved by: Derrick Rogel M.D. on 06/15/2019 at 9:37
[2019-06-15 09:30] VITALS: BP 131/80; PULSE 88; RESP 12; O2SAT 100
[2019-06-15 09:42] LABS: Bacteria Urine None Seen
[2019-06-15 10:12] LABS: Amorphous Sediment Urine 2+; Culture Indicated Urine Cult Not Indicated; RBC Urine 5-10/HPF (0-5/HPF); Squamous Epithelial Cell Urine 5-10 /HPF (0-5/HPF); WBC Urine 1-5/HPF (0-5/HPF)
[2019-06-15 10:19] VITALS: BP 131/81; PULSE 88; RESP 14; O2SAT 100
[2019-06-15 10:35] VITALS: BP 126/78; PULSE 83; RESP 12; O2SAT 99
[2019-06-15 11:16] VITALS: BP 116/74; PULSE 97; RESP 13; O2SAT 100
== END 2019-06-15 11:18 | disposition home or self-care (01) ==
PROVIDERS: Emergency Provider Emergency Medicine
DX: R10.33 Periumbilical pain (principal)
CPT/HCPCS: 36591; 74177; 80053; 81003; 81015; 81025; 83690; 85025; 85610; 85730; 93005; 96361; 96374; 96375; 99283; 99285; J1885; J2405; Q9967

== ENCOUNTER → 2020-12-21 13:27 | Outpatient (ROUT) | payer OTHER, SELFPAY ==
[2018-07-12 17:33] VITALS: BMI 24.7
[2020-12-21 13:55] LABS: COVID19 -Nasal RAPID Negative (Negative)
== END ==
PROVIDERS: Visit Provider Physician Assistant
DX: R05 Cough (principal); J98.8 Other specified respiratory disorders; R06.02 Shortness of breath
CPT/HCPCS: 87635